=== PATIENT | female | born 2000 | race Caucasian/White ===

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

== ENCOUNTER 2021-06-01 16:17 | Emergency (ER) | payer OTHER, SELFPAY ==
[2021-06-01 16:27] VITALS: BP 148/95; PULSE 100; RESP 18; TEMP 36.7; O2SAT 100
--- NOTE | 2021-06-01 16:31 | ED.FEMALEGU ---
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 Stated complaint: Yeast Infection Time Seen by Provider: 06/01/21 16:31 Source: patient, RN notes reviewed and old records reviewed Mode of arrival: ambulatory Limitations: no limitations History of Present Illness HPI Narrative: 21-year-old female presents to the [facility] Related Data Allergies Allergy/AdvReac Type Severity Reaction Status Date / Time No Known Allergies Allergy Unknown Verified 06/01/21 16:21 Review of Systems Review of Systems: All systems reviewed & are unremarkable except as noted in HPI and below Constitutional: Constitutional: Reports no additional constitutional complaints, Denies chills and Denies fatigue Eyes: Eyes: Reports no additional eye complaints ENT: Reports system reviewed and no additional complaints, except as documented Cardiovascular: Cardiovascular: Reports no additional cardiovascular complaints Respiratory: Respiratory: Reports no additional respiratory complaints Gastrointestinal: Gastrointestinal: Reports no additional gastrointestinal complaints, Denies abdominal pain, Denies diarrhea, Denies nausea and Denies vomiting Genitourinary: Genitourinary: Reports as per HPI, Reports hematuria, Reports nocturia, Reports dysuria, Denies flank pain and Denies vaginal discharge Musculoskeletal: Musculoskeletal: Reports no additional musculoskeletal complaints and Denies back pain Integumentary/Breasts: Skin/Breast: Reports system reviewed and no additional complaints, except as docu Neurologic: Reports system reviewed and no additional complaints, except as documented Psychiatric: Psychiatric: Reports no additional psychiatric complaints Endocrine: Endocrine: Denies fatigue Allergic/Immunologic: Allergic/Immunologic: Reports no additional allergic/immunologic complaints [facility] Past Medical History Medical History (Updated 06/01/21 @ 16:51 by Brenda Trotter) Esophagitis on biopsy Surgical History Surgical History (Updated 10/05/20 @ 18:08 by SINCERE Garay) No significant past surgical history Family History Family History (Updated 10/05/20 @ 18:06 by SINCERE Garay) Father COPD (chronic obstructive pulmonary disease) Mother Hypertension Social History Social History (Updated 10/05/20 @ 18:25 by SINCERE Garay) Years smoked: 5 Smoking status: Current every day smoker Tobacco type: cigarettes Second hand tobacco smoke exposure: Yes Alcohol intake: never Substance use: current Substance use type: marijuana Gender identity (if verbalized by the patient): Female Comments At the time of my signature, I reviewed and agree with the nursing past medical, surgical, social, and family history. There is no relevant family history pertinent to the patient complaint. Exam Const: General: healthy appearing, no acute distress and alert Nutritional Appearance: well nourished Orientation/consciousness: patient oriented x3 Limitations: no limitations HENMT: Head: normal to inspection Ears: external ears normal Eyes: Conjunctivae: conjunctivae normal Pupils: Equal, round and reactive pupils present Neck: Neck: normal visual inspection, no lymphadenopathy and no meningeal signs Chest: Chest palpation & inspection: normal inspection of the chest and abnormal inspection of the chest Resp: Effort & Inspection: normal respiratory effort Auscultation: clear to auscultation bilaterally Cardio: Rate: regular rate Rhythm: regular rhythm GI: GI Palp: Yes Soft to palpation and No Tenderness to palpation present (GI) : External Female Exam: normal external appearance Speculum Exam - Vagina: normal appearance of the vagina, abnormal vaginal discharge white and malodorous, vagina not atrophic and not erythematous Speculum Exam - Cervix: normal appearance of the cervix, Cervical os closed, no lesions and nontender Other: Chaperoned by Viviana BARRERA Back/Spine/Pelvis: Back:
== END 2021-06-01 16:55 | disposition home or self-care (01) ==
PROVIDERS: Emergency Provider Nurse Practitioner
DX: N76.0 Acute vaginitis (principal); F17.210 Nicotine dependence, cigarettes, uncomplicated
CPT/HCPCS: 81003; 81025; 87491; 87591; 87661; 99213; G0463

== ENCOUNTER 2021-08-07 10:13 | Emergency (ER) | payer OTHER, SELFPAY ==
[2021-08-07 10:19] VITALS: BP 122/78; PULSE 87; RESP 16; TEMP 37.1; O2SAT 100
--- NOTE | 2021-08-07 10:25 | ED.URI ---
HPI - URI/Sore Throat General Chief Complaint: Upper Respiratory Infection Stated Complaint: sore throat Time Seen by Provider: 08/07/21 10:25 Source: patient Mode of arrival: ambulatory Limitations: no limitations History of Present Illness HPI Narrative: Ms. Duckworth is a 21-year-old female patient presenting to the clinic today with complaints of sore throat, cough, nasal congestion, and sinus pressure x1 week. She reports that the sinus congestion is improving however she still has a sore throat that is gradually eating worse. Has pain with swallowing. She denies any fever or chills. She denies any known exposure with anyone having Covid, flu, or strep. Reports that she gets strep very easily and usually gets it every year. MD elicited complaint: cough, sore throat, rhinorrhea, nasal congestion and sinus pain Related Data Home Medications Medication Instructions Recorded Confirmed cetirizine 10 mg DIRECTED 08/07/21 08/07/21 pantoprazole 20 mg PO DIRECTED 08/07/21 08/07/21 Allergies Allergy/AdvReac Type Severity Reaction Status Date / Time No Known Allergies Allergy Unknown Verified 06/01/21 16:21 Review of Systems Review of Systems: Pertinent positives per HPI. Patient denies any fever, chills, rash, headache, visual changes, dizziness, shortness of breath, chest pain, palpitations, nausea, vomiting, diarrhea, constipation, abdominal pain, or any urinary issues. [facility] Past Medical History Medical History Esophagitis on biopsy Surgical History Surgical History No significant past surgical history Family History Family History Father COPD (chronic obstructive pulmonary disease) Mother Hypertension Social History Social History Years smoked: 5 Smoking status: Current every day smoker Tobacco type: cigarettes Second hand tobacco smoke exposure: Yes Alcohol intake: never Substance use: current Substance use type: marijuana Gender identity (if verbalized by the patient): Female Comments At the time of my signature, I reviewed and agree with the nursing past medical, surgical, social, and family history. There is no relevant family history pertinent to the patient complaint. Exam Narrative: General: Well-developed, well nourished, in no apparent distress Head: Normocephalic, atraumatic Eyes: Pupils equally round and reactive to light bilaterally, EOM intact, sclera and conjunctive clear, no discharge, lids normal Ears: TMs intact and clear, ear canals clear, no drainage, grossly hearing normal. Nose: Nares patent, clear nasal discharge, moderate inflammation, no sinus tenderness. Mouth: Oral pharynx without lesions or masses, good dentition, MMM. Oropharynx red with tonsillar swelling 2+ Neck: Supple, trachea midline, positive enlargement of anterior cervical nodes, no thyroid masses or goiter palpable. Cardio: Regular rate and rhythm, s1 and s2 normal, no murmur appreciated. Resp: Faint wheeze to the left upper posterior lobe otherwise clear to auscultation bilaterally, no rhonchi, rales, or rubs Course Course Emergency Course: Portions of this record may have been created with voice recognition software. Level of Care: Express Care Visit Vital Signs Vital signs: Vital Signs Temperature 37.1 C 08/07/21 10:19 Pulse Rate 87 08/07/21 10:19 Respiratory Rate 16 08/07/21 10:19 Blood Pressure 122/78 08/07/21 10:19 Pulse Oximetry 100 08/07/21 10:19 Temperature 37.1 C 08/07/21 10:19 Pulse Rate 87 08/07/21 10:19 Respiratory Rate 16 08/07/21 10:19 Blood Pressure 122/78 08/07/21 10:19 Pulse Oximetry 100 08/07/21 10:19 Vital signs reviewed MDM - URI/Sore Throat MDM Narrative Medical decision ralph
== END 2021-08-07 10:49 | disposition home or self-care (01) ==
PROVIDERS: Emergency Provider Nurse Practitioner Family
DX: J02.0 Streptococcal pharyngitis (principal); F17.210 Nicotine dependence, cigarettes, uncomplicated
CPT/HCPCS: 87880; 99213; G0463

== ENCOUNTER 2021-10-10 01:16 | Emergency (ER) | payer OTHER, SELFPAY ==
[2021-10-10 01:18] VITALS: BP 122/77; PULSE 75; RESP 16; TEMP 36.8; O2SAT 100
--- NOTE | 2021-10-10 01:40 | ED.DENTAL ---
HPI - Dental/Oral General Chief complaint: Dental/Oral Stated complaint: dental pain Time Seen by Provider: 10/10/21 01:23 Source: patient Mode of arrival: ambulatory Limitations: no limitations History of Present Illness HPI Narrative: 21-year-old otherwise healthy presently here with complaints of dental pain for past few hours. She denies any fever or chills. Complaint: tooth pain Location: Tooth # (16) Onset (ago): hour(s) (3) Exacerbating factors: nothing Treatment prior to arrival: none Related Data Home Medications Medication Instructions Recorded Confirmed cetirizine 10 mg tablet 10 mg DIRECTED 08/07/21 08/07/21 pantoprazole 20 mg tablet,delayed 20 mg PO DIRECTED 08/07/21 08/07/21 release Allergies Allergy/AdvReac Type Severity Reaction Status Date / Time No Known Allergies Allergy Unknown Verified 06/01/21 16:21 Review of Systems Review of Systems: All systems reviewed & are unremarkable except as noted in HPI and below Constitutional: Constitutional: Reports no additional constitutional complaints Eyes: Eyes: Reports no additional eye complaints ENT: Reports as per HPI Cardiovascular: Cardiovascular: Reports as per HPI Respiratory: Respiratory: Reports no additional respiratory complaints Gastrointestinal: Gastrointestinal: Reports no additional gastrointestinal complaints Musculoskeletal: Musculoskeletal: Reports no additional musculoskeletal complaints [facility] Past Medical History Medical History Esophagitis on biopsy Surgical History Surgical History No significant past surgical history Family History Family History Father COPD (chronic obstructive pulmonary disease) Mother Hypertension Social History Social History Years smoked: 5 Smoking status: Current every day smoker Tobacco type: cigarettes Second hand tobacco smoke exposure: Yes Alcohol intake: never Substance use: current Substance use type: marijuana Gender identity (if verbalized by the patient): Female Exam Narrative: GENERAL: Well-appearing, well-nourished, and in no acute distress. HEAD: Normocephalic, atraumatic. EYES: PERRLA and EOMI. ENT: Dental pain #16 NECK: Supple. CHEST: Clear to auscultation. No respiratory distress. HEART: Regular rate and rhythm. No murmur heard. Normal peripheral pulses. EXTREMITIES: Normal range of motion. No edema. SKIN: Warm, dry, no rash. NEURO: No focal deficits. Alert and oriented x3. PSYCH: Normal mood and affect. Course Course Emergency Course: Advised her to take antibiotic as prescribed, Tylenol for pain. Vital Signs Vital signs: Vital Signs Temperature 36.8 C 10/10/21 01:18 Pulse Rate 75 10/10/21 01:18 Respiratory Rate 16 10/10/21 01:18 Blood Pressure 122/77 10/10/21 01:18 Pulse Oximetry 100 10/10/21 01:18 Oxygen Delivery Room Air 10/10/21 01:18 Temperature 36.8 C 10/10/21 01:18 Pulse Rate 75 10/10/21 01:18 Respiratory Rate 16 10/10/21 01:18 Blood Pressure 122/77 10/10/21 01:18 Pulse Oximetry 100 10/10/21 01:18 Oxygen Delivery Room Air 10/10/21 01:18 Discharge Plan Discharge Clinical Impression: Toothache Patient Disposition: Home, Self-Care Condition: Stable Instructions: Antibiotic Form, Toothache (ED) Prescriptions: New amoxicillin 875 mg tablet 875 mg PO Q12H Qty: 20 0RF No Action cetirizine 10 mg tablet 10 mg DIRECTED pantoprazole 20 mg tablet,delayed release (DR/EC) 20 mg PO DIRECTED amoxicillin 500 mg capsule 500 mg PO Q12H 10 Days Qty: 20 0RF Follow-up/Referrals: PHYSICIAN,ADVERTISING SPACE CLERK [Primary Care Provider] - Uri Rodney MD [Physician] - Time of Disposition: 01:42
== END 2021-10-10 01:53 | disposition home or self-care (01) ==
PROVIDERS: Emergency Provider Family Medicine
DX: K08.89 Other specified disorders of teeth and supporting structures (principal); F17.210 Nicotine dependence, cigarettes, uncomplicated
CPT/HCPCS: 99283

== ENCOUNTER 2022-02-13 12:54 | Emergency (ER) | payer OTHER, SELFPAY ==
[2022-02-13 13:22] VITALS: BP 114/60; PULSE 98; RESP 18; TEMP 37.4; O2SAT 100
--- NOTE | 2022-02-13 14:03 | ED.URI ---
HPI - URI/Sore Throat General Chief Complaint: Upper Respiratory Infection Stated Complaint: Sore Throat,Cough Time Seen by Provider: 02/13/22 14:03 Source: patient and RN notes reviewed Mode of arrival: ambulatory Limitations: no limitations History of Present Illness HPI Narrative: 21-year-old female presents to the [facility] with complaints of a body aches, sore throat and cough since last night Reports that over the weekend she was exposed to influenza. Dr. Hampton is her PRIVACY DIRECTOR OB. States she is almost 6 months . Has taken Tylenol but states she does not know what else she can take. Related Data Home Medications Medication Instructions Recorded Confirmed No Home Medications 02/13/22 02/13/22 Allergies Allergy/AdvReac Type Severity Reaction Status Date / Time No Known Allergies Allergy Unknown Verified 02/13/22 13:37 Review of Systems Review of Systems: All systems reviewed & are unremarkable except as noted in HPI and below Constitutional: Constitutional: Reports as per HPI, Denies chills, Reports fatigue and Denies fever(s) Eyes: Eyes: Reports no additional eye complaints ENT: Reports sore throat Cardiovascular: Cardiovascular: Reports no additional cardiovascular complaints Respiratory: Respiratory: Reports no additional respiratory complaints Gastrointestinal: Gastrointestinal: Reports no additional gastrointestinal complaints Musculoskeletal: Musculoskeletal: Reports no additional musculoskeletal complaints Integumentary/Breasts: Skin/Breast: Reports system reviewed and no additional complaints, except as docu Neurologic: Reports system reviewed and no additional complaints, except as documented Psychiatric: Psychiatric: Reports no additional psychiatric complaints Allergic/Immunologic: Allergic/Immunologic: Reports no additional allergic/immunologic complaints PMFSH Past Medical History Medical History Esophagitis on biopsy Surgical History Surgical History No significant past surgical history Family History Family History Father COPD (chronic obstructive pulmonary disease) Mother Hypertension Social History Social History Years smoked: 5 Smoking status: Current every day smoker Tobacco type: cigarettes Second hand tobacco smoke exposure: Yes Alcohol intake: never Substance use: current Substance use type: marijuana Gender identity (if verbalized by the patient): Female Comments At the time of my signature, I reviewed and agree with the nursing past medical, surgical, social, and family history. There is no relevant family history pertinent to the patient complaint. Exam Const: General: healthy appearing, no acute distress, alert and well nourished Nutritional Appearance: well nourished Orientation/consciousness: patient oriented x3 Limitations: no limitations HENMT: Head: normal to inspection Ears: external ears normal, TM's normal bilaterally and EAC's normal Face/Nose/Sinus: Normal external nose present and Normal nares present Face and sinus: normal facial exam Mouth: Yes Normal oral and palatal mucosa present, Yes lip normal and Yes moist mucous membranes Throat: posterior oropharynx normal and uvula midline Eyes: General: appearance normal, both eyes and all related structures Conjunctivae: conjunctivae normal Pupils: Equal, round and reactive pupils present Neck: Neck: normal visual inspection, no lymphadenopathy and no meningeal signs Chest: Chest palpation & inspection: normal inspection of the chest Resp: Effort & Inspection: normal respiratory effort and no use of accessory muscles Auscultation: clear to auscultation bilaterally, no crackles, no rales, no rhonchi and no wheezes Cardio: Rate: regular rate Rhythm: regular
== END 2022-02-13 14:41 | disposition home or self-care (01) ==
PROVIDERS: Emergency Provider Nurse Practitioner; PCP Obstetrics & Gynecology
DX: O99.512 Diseases of the respiratory system complicating pregnancy, second trimester (principal); Z3A.00 Weeks of gestation of pregnancy not specified; J06.9 Acute upper respiratory infection, unspecified; F17.210 Nicotine dependence, cigarettes, uncomplicated; O99.332 Smoking (tobacco) complicating pregnancy, second trimester
CPT/HCPCS: 87081; 87804; 87880; 99213; G0463

== ENCOUNTER 2022-05-08 11:35 | Outpatient (RCR) | payer OTHER, SELFPAY ==
[2022-05-02 17:27] VITALS: BP 117/62; PULSE 80
--- NOTE | ~2022-05-08 | US_ITS ---
EXAMINATION: US OB BPP wo non-stress, US umbilical doppler DATE: 05/02/2022 16:53 [employer] INDICATION: Low baseline heart rate. TECHNIQUE: Real-time transabdominal obstetric ultrasound. FINDINGS: No prior studies for comparison. There is a single living fetus in vertex presentation. The placenta is posterior without placenta pr evia. cardiac activity and movement is noted with a heart rate of 120 beats per minute. Biophysical profile: breathin of 2 movement: 2 of 2 tone: 2 of 2 Amniotic flud pocket: 2 of 2 Total score: 8 of 8 Umbilical Doppler termination demonstrates normal systolic/diastolic ratio of 2.3 (normal range for g estational age is 2.03-3.40). IMPRESSION: 1. Single living intrauterine in vertex presentation. 2: Total biophysical profile score of 8/8. 3: Normal umbilical Doppler examination. Reviewed, dictated and finalized at location A. RESUR[employer]ING MACHINE OPERATORS IMPRESSION: 1. Single living intrauterine in vertex presentation. 2: Total biophysical profile score of 8/8. 3: Normal umbilical Doppler examination.
--- NOTE | ~2022-05-08 | US_ITS ---
. EXAMINATION: US OB limited w BPP DATE: 05/08/2022 13:19 INDICATION: Decelerations. Third trimester. TECHNIQUE: Real-time pelvic ultrasound was performed. COMPARISON: Ultrasound 05/02/2022 FINDINGS: There is a single living fetus in vertex presentation. The placenta is fundal. heart rate is 1 36 beats per minute (bpm). The amniotic fluid index is 12.4 cm, which is normal. Biophysical profile performed by the technologist: breathing (30 sec sustained breathing in 30 minutes): 2 out of 2 movement (3 gross body movements in 30 minutes): 2 out of 2 tone (one episode of bzfnwim-[id number]-vwungai limb movement): 2 out of 2 Amniotic fluid pocket (2 cm): 2 out of 2 Total score: 8 out of 8 IMPRESSION: 1. Single living fetus in vertex presentation. 2. Biophysical profile 8 out of 8. Reviewed, dictated and finalized at location A. CISE INSTRUCTOR
[2022-05-08 13:42] VITALS: BP 120/57; PULSE 77
== END 2022-05-24 07:39 | disposition home or self-care (01) ==
LOC: ANHOBOP 11:35
PROVIDERS: Visit Provider Obstetrics & Gynecology
DX: O36.8330 Maternal care for abnormalities of the fetal heart rate or rhythm, third trimester, not applicable or unspecified (principal); Z3A.34 34 weeks gestation of pregnancy; Z3A.35 35 weeks gestation of pregnancy
CPT/HCPCS: 59025; 76815; 76819; 76820

== ENCOUNTER 2022-05-15 11:43 | Inpatient (IN) | payer OTHER, SELFPAY ==
[2022-05-15] VITALS (121 sets, daily range): BP systolic 108–188; BP diastolic 57–154; PULSE 45–137; RESP 16–18; TEMP 36.6–37.1; O2SAT 82–100; BMI 22.6
[2022-05-15] MEDS: LACTATED RINGERS 1,000 ML 999 ML IV CONT (13:22)
--- NOTE | 2022-05-15 13:26 | LDADM ---
This patient, Ragini Duckworth, was admitted to Labor/Delivery/Recovery 105 on 05/15/22 at 11:43. Plans for labor, pain management and were discussed with patient. Patient/family oriented to hospital policies and general routines including ID bracelet, bed and alarms, visiting hours, pain management, procedures, bathroom and other care routines, personal items, smoking policy, room service/diet and guest tray routines, security routines, and visiting hours. Patient/Family are encouraged to report perceived risks to care and to ask questions if they do not understand what they are told or what they should do. See [facility] for further documentation.
[2022-05-15] MEDS: LACTATED RINGERS 1,000 ML 100 ML IV CONT (14:04)
--- NOTE | 2022-05-15 14:31 | PM.IMHP ---
H&P: [facility] History of Present Illness Date/Time: 05/15/22 14:31 Chief Complaint: Contractions Narrative: this patient is a 22-year-old 1 at 36 weeks. She has a uncommon placental abnormality with a hematoma or fluid collection on the side of the placenta. She has some nonreassuring heart tones today with numerous repetitive heart rate decelerations that appeared to be Variable decelerations. After speaking with MFM we have elected to move forward with delivery. Patient presented with contractions, no loss of fluid or vaginal bleeding. We performed artificial rupture membranes after period of observation. Will administer Pitocin to get her into labor. heart tones were overall reassuring. Review of Systems Review of Systems: All systems reviewed & are unremarkable except as noted in HPI and below Constitutional: Constitutional: Denies chills, Denies fatigue, Denies fever(s) and Denies weakness Eyes: Eyes: Denies blurry vision, Denies change in vision, Denies loss of peripheral vision, Denies loss of vision, Denies other visual disturbances and Denies eye pain ENT: Denies vertigo, Denies dizziness, Denies hearing loss, Denies mouth pain, Denies nasal obstruction, Denies neck mass and Denies neck pain Cardiovascular: Cardiovascular: Denies chest pain, Denies diaphoresis, Denies syncope, Denies leg edema and Denies dyspnea Respiratory: Respiratory: Denies chest congestion, Denies cough, Denies hemoptysis, Denies dyspnea and Denies wheezing Gastrointestinal: Gastrointestinal: Denies abdominal pain, Denies constipation, Denies diarrhea, Denies nausea and Denies vomiting Genitourinary: Genitourinary: Denies hematuria, Denies change in libido, Denies nocturia, Denies genital lesions, Denies flank pain and Denies urinary urgency Musculoskeletal: Musculoskeletal: Denies abnormal gait, Denies back pain, Denies myalgias, Denies arthralgias, Denies joint swelling, Denies muscle weakness and Denies neck pain Integumentary/Breasts: Skin/Breast: Denies swelling, Denies breast pain, Denies breast mass, Denies dry skin, Denies nipple discharge, Denies unusual bruising and Denies jaundice Neurologic: Denies Neuro-related abnormal movements, Denies Abnormal speech present, Denies abnormal gait, Denies behavioral changes, Denies confusion, Denies vertigo, Denies dizziness, Denies syncope, Denies loss of vision, Denies memory loss, Denies convulsions and Denies weakness Psychiatric: Psychiatric: Denies abnormal sleep pattern, Denies behavioral changes, Denies change in libido, Denies confusion, Denies depression, Denies anhedonia and Denies memory loss Endocrine: Endocrine: Reports no additional endocrine complaints, Denies change in libido and Denies fatigue Hematologic/Lymphatic: Hematologic/Lymphatic: Reports no additional hematologic/lymphatic complaints Allergic/Immunologic: Allergic/Immunologic: Reports no additional allergic/immunologic complaints and Denies wheezing PMFSH Past Medical History Medical History Esophagitis on biopsy Surgical History Surgical History No significant past surgical history Family History Family History (Updated 05/12/22 @ 12:40 by Bentley Webb RN) Father COPD (chronic obstructive pulmonary disease) Mother Hypertension Grandparent COPD (chronic obstructive pulmonary disease) Social History Social History Years smoked: 5 Smoking status: Current every day smoker Tobacco type: cigarettes Second hand tobacco smoke exposure: Yes Alcohol intake: never Substance use: current Substance use type: marijuana Last use: last month--04/17 Gender identity (if verbalized by the patient): Female Spiritual care concerns: No Meds Home Medications and Allergies Home Medications Medication Instru
[2022-05-15] MEDS: AMPICILLIN 2 GM/NS 100 ML 2 GM/100 ML BAG IVPB (14:40)
[2022-05-15 14:47] LABS: Basophils Absolute Auto 0.1 K/mm3 (0.0-0.1); Basophils Percent Auto 0.7 % (0.2-1.2); Eosinophils Absolute Auto 0.2 K/mm3 (0-0.3); Eosinophils Percent Auto 2.9 % (0-4.4); Hematocrit 35.6 % (37.0-47.0); Hemoglobin 11.8 g/dL (12.0-15.0); Immature Granulocyte Absolute 0.03 K/mm3 (0.00-0.031); Immature Granulocyte Percent A 0.4 % (0-0.5); Lymphocytes Absolute Auto 1.43 K/mm3 (0.9-3.2); Lymphocytes Percent Auto 19.1 % (18.3-44.2); Mean Corpuscular HGB Conc 33.1 g/dl (32-36); Mean Corpuscular Hemoglobin 27.3 pg (26-34); Mean Corpuscular Volume 82.4 fl (80-100); Mean Platelet Volume 11.8 fl (7.4-10.4); Monocytes Absolute Auto 0.6 K/mm3 (0.1-0.6); Monocytes Percent Auto 8.5 % (2.6-8.5); Neutrophils Absolute Auto 5.1 K/mm3 (1.3-6.7); Neutrophils Percent Auto 68.4 % (45.5-73.1); Platelet Count Result 221 k/mm3 (150-375); Red Blood Count 4.32 M/mm3 (4.2-5.4); Red Cell Distribution Width 13.3 % (11.5-14.5); White Blood Count 7.5 K/mm3 (4.5-10.0)
[2022-05-15] MEDS: OXYTOCIN 30 UNITS/NS 500 ML 30 UNITS/500 ML BAG IV CONT (15:47)
[2022-05-15] MEDS: AMPICILLIN 1 GM/NS 50 ML 1 GM/50 ML BAG IVPB ×2 (18:30→22:36)
[2022-05-15] MEDS: LACTATED RINGERS 1,000 ML 125 ML IV CONT (18:30)
--- NOTE | 2022-05-15 23:54 | PM.OBPRVD ---
OB - Delivery Note Procedure Procedure: Induction method: AROM and Per Pitocin Protocol Delivery monitor: External FHT and External Uterine Route of delivery: Episiotomy description: None Laceration Description: None Specimen: No Quantitative Blood Loss (ml): 250 Anesthesia type: Epidural Baby Date of : 05/15/22 Time of : 23:39 Weeks of gestation at delivery: 36 Infant gender: Female Weight (pounds): 5 Weight (ounces): 6 presentation: vertex Placenta delivery description: Spontaneous Cord Vessel Description: 3 Vessels score one minute: 8 score five minutes: 9
[2022-05-16] VITALS (38 sets, daily range): BP systolic 109–152; BP diastolic 61–141; PULSE 77–112; RESP 16–18; TEMP 36.6–37.3; O2SAT 97–100
[2022-05-16] MEDS: OXYTOCIN 30 UNITS/NS 500 ML 30 UNITS/500 ML BAG 125 UNITS IV CONT (00:22)
[2022-05-16] MEDS: BENZOCAINE 20% AER SPR (*SP) 56 GM CAN 1 SPRAY TOPICAL (01:39)
[2022-05-16] MEDS: WITCH HAZEL 40 PADS 1 PAD TOPICAL (01:39)
--- NOTE | 2022-05-16 02:18 | PC.NURSE ---
Patient transferred to post room # 279 via (W/C). Support person present. Oriented to unit, room, information board, rooming in, admission packet and security measures. Patient verbalizes understanding.
[2022-05-16 05:40] LABS: Hematocrit 29.4 % (37.0-47.0); Hemoglobin 9.8 g/dL (12.0-15.0)
--- NOTE | 2022-05-16 07:54 | PM.OBPNVD ---
OB - PN: Subj Subjective Date/time seen: 05/16/22 07:54 s/p vaginal delivery day 1 OB - PN: Obj Data Labs 05/16/22 05:27 Labs: Laboratory Results - last 24 hr 05/15/22 05/15/22 05/16/22 14:43 14:43 05:27 WBC 7.5 RBC 4.32 Hgb 11.8 L 9.8 L Hct 35.6 L 29.4 L MCV 82.4 MCH 27.3 MCHC 33.1 RDW 13.3 Plt Count 221 MPV 11.8 H Immature Gran % (Auto) 0.4 Neut % (Auto) 68.4 Lymph % (Auto) 19.1 [place] % (Auto) 8.5 Eos % (Auto) 2.9 Baso % (Auto) 0.7 Lymph # (Auto) 1.43 [place] # (Auto) 0.6 Eos # (Auto) 0.2 Baso # (Auto) 0.1 Abs Immat Gran (auto) 0.03 Absolute Neuts (auto) 5.1 Absolute Nucleated RBC 0.0 Nucleated RBC % 0.0 Blood Type A Positive Antibody Screen Negative OB - PN A/P Plan day: 1 Plan: routine care Time Spent With Patient Time: Total time spent is greater than 50% in coordination of care (as documented) at patient's floor/unit and/or counseling patient: Review of Systems Review of Systems: All systems reviewed & are unremarkable except as noted in HPI and below Exam Const: General: cooperative, healthy appearing and comfortable
[2022-05-16] MEDS: POLYSACCHARIDE IRON COMPLEX 150 MG CAPSULE PO ×2 (07:57→16:55)
[2022-05-16] MEDS: DOCUSATE SODIUM 100 MG CAPSULE PO (07:57)
[2022-05-16] MEDS: FLUCONAZOLE 150 MG TABLET PO (10:39)
--- NOTE | 2022-05-16 14:12 | PC.NURSE ---
[id number] Introductions were made, then consulted with patient to assess needs related to . Mother led the conversation with her?plans to feed?her infant and the?experience so far. Resources provided for inpatient and outpatient services with the mom/baby guide. Mother voiced understanding of information and requests assistance. Mother works well with her with encouragement and education. Encouraged understanding of the benefits of skin to skin (demonstrating unwrapping and placing upright on her chest), stimulating with massage touch, changing positions to encourage wakefulness, how to watch for early feeding cues, responsive feeding, feeding on demand (aiming for 8-12 times in 24 hours, about every 2-3 hours), milk production, building/maintaining a milk supply, duration of feeding, signs of adequate intake/output and how to record on the feeding sheet. Mother voiced she would call when she visualized feeding cues, after the blood sugar check or if she is unable to wake her infant to breastfeed. is sleepy and reluctant skin to skin with mother after stimulating there are no feeding cues. [id number] Reviewed positioning and ear, shoulder, hip alignment, supporting the breast to facilitate a deep latch, asymmetrical latch (off-center), leading with the chin with a big, open, wide gape and body close to mother. Infant is sleepy and reluctant. Discussed the latch pre-term infant and typical behavior for EGA and less than 24 hours old. Mother is receptive to learning hand expression. 15mls hand expressed from mothers breast and spoon fed to due to not opening and latching. Reviewed feeding option related to late infant not latching with some low blood sugars. has been bottle fed previously related to the low blood sugar and mother would like to pump to stimulate her milk production and feed what she pumps to her baby. 1052 - Dr. Mahajan was notified of the 15mls of breastmilk spoon fed to and is okay with mother supplementing whether it is breastmilk or formula 15mls-20mls 1105 - Breast pump provided due to ineffective (baby does not latching to the breast) and mother's request. Instructions given on cleaning, care, usage, that there should be no pain, pumping schedule for milk production, collection, and storage of human milk. Parents are encouraged to record pumping schedule on the feeding sheet. Patient was assessed for correct placement, flange size, to pump for comfort and nipple stretching/stimulation for adequate milk production every 3 hours (8 times in 24 hours) 1-2 times at night. Mother voiced understanding of the education shared along with mom and baby guide for additional resource information. Reported to the primary RN. 1145 Mother pumped 5mls and said she fell asleep pumping and did not complete the pumping cycle and did not want to hand express or start another pumping session. Mother desires to nap. 5mls of breastmilk and 10mls of formula was fed to the and mother states she will wash the pump parts before she takes a nap. Reviewed good handwashing when or touching the breast/nipples to prevent infection. Resources used to facilitate learning were used with the tool, mom and baby guide. Mother voiced understanding of skin to skin, stimulating with massage touch, responsive feedings, hand expressed colostrum, talking to to encourage if it has been 2 -2.5 hours since the start of the last , to call if does not latch, or if there is discomfort with . Resources provided for inpatient/outpatient with business card, feeding sheet and the mom/baby guide. Mother voiced understanding of information and will call if there is a request for assistance. Reported to the primary RN.
[2022-05-16 14:20] LABS: Rapid Plasma Reagin Non-Reactive (NonReactive)
--- NOTE | 2022-05-16 16:05 | PC.NURSE ---
Liam Rush RN, has checked over and agrees with the charting that Mirta Batista, Student RN, has completed.
[2022-05-17] VITALS: BP 115/68; PULSE 84; RESP 18; TEMP 36.8; O2SAT 99
[2022-05-17 07:40] VITALS: BP 107/72; PULSE 72; RESP 18; TEMP 36.6; O2SAT 98
[2022-05-17] MEDS: DOCUSATE SODIUM 100 MG CAPSULE PO (07:44)
[2022-05-17] MEDS: POLYSACCHARIDE IRON COMPLEX 150 MG CAPSULE PO (07:44)
--- NOTE | 2022-05-17 09:42 | PM.OBPNVD ---
OB - PN: Subj Subjective Date/time seen: 05/17/22 09:43 s/p vaginal delivery day 2 OB - PN: Obj Data Labs 05/16/22 05:27 Labs: Laboratory Results - last 24 hr 05/15/22 14:43 RPR Non-reactive OB - PN A/P Plan day: 2 Plan: routine care and discharge home Time Spent With Patient Time: Total time spent is greater than 50% in coordination of care (as documented) at patient's floor/unit and/or counseling patient: Review of Systems Review of Systems: All systems reviewed & are unremarkable except as noted in HPI and below Exam Const: General: cooperative, healthy appearing and comfortable
--- NOTE | 2022-05-17 09:44 | PM.OBDSVD ---
DS: Admitting Diagnosis Discharge Date 05/17/22 Admitting Diagnosis IOL DS: Discharge Diagnosis Discharge Diagnosis (1) Vaginal delivery: Code(s): O80 - Encounter for full-term uncomplicated delivery Status: Acute OB - DS: Summary OB Procedures : None OB Procedures Intrapartum: Spontaneous Vag Delivery OB Procedures: : None Time Spent with Patient Time attestation: Total time spent providing and/or coordinating discharge services: DS: Data Data Completed and Pending Labs on day of discharge: Labs from last 24 hours 05/15/22 14:43 RPR Non-reactive Discharge Plan Discharge Attending physician on discharge: Adeola Hampton Discharging Clinician: Josephine Lopez Patient Disposition: Home, Self-Care Activity: pelvic rest Diet: regular Patient Instructions: Antibiotic Form Stand Alone Forms: General Discharge Information Follow-up/Referrals: Adeola Hampton MD [Physician] - 4 Weeks Discharge Medications: New ibuprofen 600 mg Tablet 600 mg PO Q6H PRN (Reason: Cramping) Qty: 30 0RF Continued albuterol sulfate 90 mcg/actuation Hfa Aerosol Inhaler 2 puff INHALATION Q4H PRN (Reason: Shortness Of Breath) PNV cmb#95-ferrous fumarate-FA [] 28 mg iron- 800 mcg Tablet 1 tablet PO DAILY Discontinued metronidazole 0.75 % (37.5mg/5 gram) gel 1 appful VAGINAL DAILY Date of admission: 05/15/22 11:43 Primary Care Provider: PHYSICIAN,RAIL SIGNAL WORKER Admitting Provider: Adeola Hampton Attending physician on admission: Adeola Hampton Condition: Stable
[2022-05-17] MEDS: MEASLES,MUMPS,RUBELLA VACCINE 0.5 ML VIAL SUB-Q (10:24)
[2022-05-19 11:40] VITALS: BP 114/75; PULSE 98; RESP 18; TEMP 37.1; O2SAT 100
== END 2022-05-17 14:00 | disposition home or self-care (01) | DRG 560 ==
LOC: ANHLDR 16:13 → ANHOB2 05-16 02:19
PROVIDERS: Admitting Provider Obstetrics & Gynecology; Visit Provider Obstetrics & Gynecology
DX: O36.8330 Maternal care for abnormalities of the fetal heart rate or rhythm, third trimester, not applicable or unspecified (principal); O99.824 Streptococcus B carrier state complicating childbirth; Z37.0 Single live birth; Z3A.36 36 weeks gestation of pregnancy; O43.893 Other placental disorders, third trimester
CPT/HCPCS: 36415; 85014; 85018; 85025; 86592; 86850; 86900; 86901; 90710; A9270; J0290; J2590; J2795; J7120

== ENCOUNTER 2023-08-26 10:45 | Outpatient (RCR) | payer OTHER, SELFPAY ==
--- NOTE | 2023-08-19 11:00 | OPREHPOC ---
Outpatient Therapy Plan of Care This is a Multidisciplinary Plan of Care that may contain components documented by all disciplines (PT, OT, and ST.) PT Problem 1 PT Problem #1 Knowledge Deficit PT Goal 1 Goal 1. Patient will perform independent HEP Target Visit 2 PT Problem 2 PT Problem #2 Pain PT Goal 1 Goal 1. Pt will report no pelvic pain on exam 2. Pt will be able to do all normal activities with pain no higher than 2/10 Target Visit 5 PT Problem 3 PT Problem #3 Impaired Strength PT Goal 1 Goal 1. Improve pelvic floor strength to 4/5 to decrease incontinence Target Visit 5 PT Problem 4 PT Problem #4 Impaired Functional ADLs PT Goal 1 Goal 1. Patient able to do all normal activities with no more than 1 instance of incontinence every 2 weeks Target Visit 5
--- NOTE | 2023-08-19 11:01 | PTOPEVAL1 ---
Assessment and note entered by Acacia Dobson DPT Evaluation Information Assessment Status Evaluation Subjective Information Pt reports pelvic pain that has gotten worse since giving . Also notices pain in her lower abdomen that shoots down if she walks too much. Highest pain 8/10 and lowest 0/10. Reports numbness from her waist to her toes, feels more lateral and is normally on her R LE only. Pt has been 1 time, delivery in April 2022. Vaginal delivery, placenta rupture after delivery and reports difficulty with her epidural working well. Voids 6 times a day, 1-2 times a night but is working nights and schedule is shifting in general. Reports difficulty fully emptying her bladder and incontinence 2-3 times a week and is a few drops at a time. States she has pressure with urination. Can hold urge 10 minutes. BM at least 2 times a day, generally no pain unless constipation. Previous pelvic pain with sex before , but it is much worse now. Pain with using a tampon, getting a pap smear, sometimes sitting to drive for a long period of time. 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 Pain and difficulty driving back and forth to work , pain with lifting at work (works for [employer]). Needs to take breaks on occasion. Patient goal: minimize pain Return to MD not scheduled currently. Reported Pain Level Pain Score 3: Self Report Assessment PT Clinical Summary The patient is presenting to skilled therapy with a history of worsening pelvic pain and also reports abdominal pain and radiating symptoms into her R LE. She also reports urinary incontinence and some urgency. She presents with decreased hip and core strength, and increased pelvic floor muscle tone and pain and difficulty relaxing after contraction which are contributing to her pain and difficulty with work activities, sitting to drive, and tolerating tampon use or pap smear. She will highly benefit from therapy to address her impairments in order to reduce pain and improve function. Plan of Care Interventions Electrical Stimulation,Gait Training,Hot Pack/Cold Pack,Manual Therapy,Neuro Re-education,Patient/
--- NOTE | 2023-09-07 14:42 | PCPTNOTE ---
Patient did not show up for appointment on 09/07/23. Left voicemail for patient to reschedule.
--- NOTE | 2023-09-23 10:42 | PTOPDC ---
Assessment and note entered by Acacia Dobson, DPT Evaluation Information Assessment Status Discharge - Pt Not Present Subjective Information - Assessment PT Clinical Summary Patient has not attended therapy since 08/26/23 and has not called back to reschedule. She will be discharged this date and require a new script to resume therapy in the future. Plan of Care PT Services Indicated No
== END 2023-09-23 11:05 | disposition home or self-care (01) ==
LOC: ANHGOSHPT 10:45
PROVIDERS: Visit Provider Nurse Practitioner
DX: N94.10 Unspecified dyspareunia (principal)
CPT/HCPCS: 97110; 97112; 97140; 97162; 97530

== ENCOUNTER 2024-08-13 11:10 | Emergency (ER) | payer OTHER, SELFPAY ==
--- OUTSIDE RECORDS SUMMARY | 2024-08-13 11:13 | XMS_ITS | Clinical Summary ---
Author Organization [facility] Address [address] [place] [id number] Care Team Providers Care Ship Keeper Name Role Phone None, Provider MD Primary Care Provider Unavaila ble Allergies No known active allergies Medications cyclobenzaprine 10 MG tablet Take 0.5 tablets (5 mg total) by mouth 3 (three) times daily as needed. 16 tablet 04/05/2021 Active Social History Tobacco Use Types Packs/Day Years Used Date Smoking Tobacco: Every Day Smokeless Tobacco: Never Alcohol Use Standard Drinks/Week Comments Never 0 (1 standard drink = 0.6 oz pur e alcohol) Comments Unknown Sex and Gender Information Value Date Recorded Sex Assigned at Not on file Legal Sex Female 3:23 PM RN PROGRESSIVE CARE Gender Identity Not on file Sexual Orientation Not on file Last Filed Vital Signs Vital Sign Reading Time Taken Comments Blood Pressure 117/72 04/05/2021 3:57 PM RN PROGRESSIVE CARE Pulse 90 04/05/2021 3:57 PM RN PROGRESSIVE CARE Temperature 36.6 C (97.8 F) 04/05/2021 3:57 PM RN PROGRESSIVE CARE Respiratory Rate 18 04/05/2021 3:57 PM RN PROGRESSIVE CARE Oxygen Saturation 100% 04/05/2021 3:57 PM RN PROGRESSIVE CARE Inhaled Oxygen Concentration - - Weight 46.3 kg (102 lb) 04/05/2021 3:57 PM RN PROGRESSIVE CARE Height 157.5 cm (5' 2 ) 04/05/2021 3:57 PM RN PROGRESSIVE CARE Body Mass Index 18.66 04/05/2021 3:57 PM RN PROGRESSIVE CARE Plan of Treatment Health Maintenance Due Date Last Done Comments Cervical Cancer Screening Pap Smear (Age 21 to 29) Every 3 Years 2001 Cervical Cancer Screening 2001 Annual Physical 2004 Pneumococcal Vaccine: Pediatrics (0 to 5 Years) and At-Risk Patients (6 to 49 Years) (1 of 2 - PCV) 2007 03/07/2004, 06/28/2002, 05/03/2002, Additional history exists Meningococcal B Vaccine (1 of 2 - Standard) 2017 Hepatitis C 2019 DTaP, Tdap and Td Vaccines (7 - Td or Tdap) 12/28/2022 12/28/2012, 12/01/2006, 03/07/2004, Additional history exists COVID-19 Vaccine (1 - 2023- season) 2023 Hepatitis B Vaccines Completed 05/03/2002, 2001, 2001 Meningococcal Vaccine Aged Out 12/28/2012 No iza semaj eligible based on patient's age to complete this topic HPV Vaccines Completed 01/23/2016, 12/28/2012 RSV Immunizations Under 20 Months Aged Out No longer eligible based on patient's age to complete this topic Insurance [employer] Advance Directives Documents on File Type Date Recorded Patient Videotape Recording Engineer Expl anation Legal Documents 04/18/2021 2:33 PM [employer] [id number] DOS 04/05/2021 Care Teams Ship Keeper Relationship Specialty Start Date End Date None, Provider, PCP - General 04/05/21
--- OUTSIDE RECORDS SUMMARY | 2024-08-13 11:13 | XMS_ITS | Data Portability ---
Author Organization [facility] Address [address] [place] [address] Care Team Providers Care Brokerage Coordinator Name Role Phone ALONDRA BURDICK Primary Care Provider [phone] Assessment No assessment recorded. Plan of Treatment Reminders Order Date Submit Date Provider Last Modified By Organization Details Last Modified Time Details Appointments None record ed. Lab HIV (1+O+2 ) Ab, serum 2018 019 [employer] [facility], [address] [facility], [address], [place], [address], 9 11:42:19 RPR (rapid plasma reagin ), serum 2018 019 [facility], [address] [facility], [address], [place], [address], 9 06:16:21 pregna ncy test, urine 2018 019 leisa In-Office Order, Internal Use Only DO Not Attach Compendium DO Not Attach Compendium, Do Not Delete/merge, [id number] 9 15:09:47 urinal ysis, dipsti ck 2018 019 yaranaif In-Office Order, Internal Use Only DO Not Attach Compendium DO Not Attach Compendium, Do Not Delete/merge, [id number] 9 15:09:47 bacter ial vagino sis + vagini tis panel, vagina l 2018 019 [facility], [address] [facility] [address], [address], [place], [address], 9 15:07:21 urinal ysis comple te, reflex cultur e 2015 016 [facility], [address] [facility], [address], [place], [address], 6 06:05:51 Referral podiat rist referr al 2023 024 Bronson Verma DPM, [address] [facility], [facility] [address], [place], [address], 4 08:16:39 allerg ist & immuno logist referr al - dyspha rafael with melon and foods high in lactos e 2021 022 stefano [place], [address], [place], [address], 2 14:28:31 Procedures None record ed. Surgeries None record ed. Imaging None record ed. Medication Orders pantop razole 20 mg tablet ,delay ed releas e 2023 024 [facility] #[id number], [address] [facility], [place], [place], [id number], 4 16:22:17 cetiri zine 10 mg tablet 2023 024 [facility], [address], [place], [place], [id number], 4 15:19:57 flutic asone propio juan a 50 mcg/ac tuatio n nasal spray, suspen blayne 2023 024 [facility], [address] [facility], [place], [place], [id number], 4 15:19:56 albute rol sulfat e HFA 90 mcg/ac tuatio n aeroso l inhale r 2023 024 [facility], [address] , [place], [place], [id number], 4 16:21:39 pantop razole 20 mg tablet ,delay ed releas e 2021 022 kbarbero [facility] #07079, [address], [place], [id number], 2 16:57:25 Sprint ec (28) 0.25 mg-0.0 35 mg tablet 2018 019 nikita a [facility] #63115, [address], [place], [id number], 2 14:39:29 raniti dine 150 mg tablet 2017 018 nikita a [facility] #92417, [address], [place], [id number], 2 14:38:20 Patient Targets Encounter Date Encounter Id Patient Goals Patient Target Last Modified By Organization Details Last Modified Time pantoprazle kbarbero Not available 03/15 15:19:57 Patient Instructions Encounter Date Encounter Id Patient Instructions Last Modified By Organization Details Last Modified Time 01/23/2016 [id number] patient health questionnaire modified for adolescents* [email or web address] Not available 01/23/2016 12:06:30 tuberculosis ris k assessment* [email or web address] Not available 01/23/2016 12:06:30 9th grade and sports forms completed rquaas Not available 01/23/2016 12:05:36 Discussed diet a nd was given safety info rquaas Not available 01/23/2016 12:05:36 04/07/2018 [id number] As above rquaas Not available 04/07 17:38:20 05/20/2018 [id number] Quitting Tobacco : Care Instructions [email or web address] Not available 05/20/2018 15:09:47 painful menstrua l cramps in teens: care instructions yarauz Not available 05/20/2018 15:18:13 stop smoking Patient to start oral control today Patient to take OBC at same time every day as directed Use condoms as back for first week Risks of hormonal control reviewed, including but not limited to thrombosis, embolism, pulmonary embolism, stroke, disability, sexual dysfunction & . Patient understands these risk are increased with smoking. Patient understands that these risks may be increased when using the patch (Ortho-Evra) or the vaginal ring (Nuva-Ring) when compared to oral control pills. Risks of bone loss with Depo Provera also reviewed. All questions answered. Pt understands & accepts risks. Instructions/warni ng signs given. 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 for Gluten sensitivity dysphagia with melon and foods high in lactose Referring Physician: Alondra Burdick [facility], Encounter Date: 07/09/2021 [employer] Referral for Plan tar wart of right foot Referring Physician: Alondra Burdick [facility], Encounter Date: 03/15/2024 Results Created Date Observation Date Name Description Value Unit Range Abnormal Flag Note LastModifiedBy Organization Detail LastModifiedTime 01/23/20 16 01/24/2016 urina lysis compl ete, refle x cultu re specific gravity 1.017 1.005- 1.030 Not Available [facility] ([facility]) [address] [place], [address], 01/25/2016 06:05:51 01/23/20 16 01/24/2016 urina lysis compl ete, refle x cultu re pH 6.0 5.0-7. 5 Not Available [facility] ([facility]) [address] [place], [address], 01/25/2016 06:05:51 01/23/20 16 01/24/2016 urina lysis compl ete, refle x cultu re urine-color YELLOW yellow Not Available [facility] ([facility]) [address] [place], [address], 01/25/2016 06:05:51 01/23/20 16 01/24/2016 urina lysis compl ete, refle x cultu re appearance CLOUDY clear abnormal Not Available [facility] ([facility]) [address] [place], [address], 01/25/2016 06:05:51 01/23/20 16 01/24/2016 urina lysis compl ete, refle x cultu re WBC esterase NEGATI VE negati ve Not Available [facility] ([facility]) [address] [place], [address], 01/25/2016 06:05:51 01/23/20 16 01/24/2016 urina lysis compl ete, refle x cultu re protein NEGATI VE negati ve/tra ce Not Available [facility] ([facility]) [address] [place], [address], 01/25/2016 06:05:51 01/23/20 16 01/24/2016 urina lysis compl ete, refle x cultu re glucose NEGATI VE negati ve Not Available [facility] ([facility]) [address] [place], [address], 01/25/2016 06:05:51 01/23/20 16 01/24/2016 urina lysis compl ete, refle x cultu re ketones NEGATI VE negati ve Not Available [facility] ([facility]) [address] [place], [address], 01/25/2016 06:05:51 01/23/20 16 01/24/2016 urina lysis compl ete, refle x cultu re occult blood NEGATI VE negati ve Not Available [facility] ([facility]) [address], [place], [address], 01/25/2016 06:05:51 01/23/20 16 01/24/2016 urina lysis compl ete, refle x cultu re bilirubin NEGATI VE negati ve Not Available [facility] ([facility]) [address], [place], [address], 01/25/2016 06:05:51 01/23/20 16 01/24/2016 urina lysis compl ete, refle x cultu re urobilinogen ,semi-qn 0.2 mg/dL 0.2-1. 0 Not Available [facility] ([facility]) [address], [place], [address], 01/25/2016 06:05:51 01/23/20 16 01/24/2016 urina lysis compl ete, refle x cultu re nitrite, urine NEGATI VE negati ve Not Available [facility] ([facility]) [address], [place], [address], 01/25/2016 06:05:51 01/23/20 16 01/24/2016 urina lysis compl ete, refle x cultu re microscopic examination COMMEN T MICRO SCOPI C FOLLO WS IF INDIC ATED. Not Available [facility] ([facility]) [address], [place], [address], 01/25/2016 06:05:51 01/23/20 16 01/24/2016 urina lysis compl ete, refle x cultu re microscopic examination SEE BELOW: MICRO SCOPI C WAS INDIC ATED AND WAS PERFO RMED. Not Available [facility] ([facility]) [address], [place], [address], 01/25/2016 06:05:51 01/23/20 16 01/24/2016 urina lysis compl ete, refle x cultu re WBC 0-5 /hpf 0 - 5 Not Available [facility] ([facility]) [address], [place], [address], 01/25/2016 06:05:51 01/23/20 16 01/24/2016 urina lysis compl ete, refle x cultu re RBC 0-2 /hpf 0 - 2 Not Available [facility] ([facility]) [address], [place], [address], 01/25/2016 06:05:51 01/23/20 16 01/24/2016 urina lysis compl ete, refle x cultu re epithelial cells (non renal) >10 /hpf 0 - 10 abnormal Not Available [facility] ([facility]) [address], [place], [address], 01/25/2016 06:05:51 01/23/20 16 01/24/2016 urina lysis compl ete, refle x cultu re epithelial cells (renal) CRANE CREW SUPERVISOR Not Available [facility] ([facility]) [address], [place], [address], 01/25/2016 06:05:51 01/23/20 16 01/24/2016 urina lysis compl ete, refle x cultu re casts CRANE CREW SUPERVISOR Not Available [facility] ([facility]) [address], [place], [address], 01/25/2016 06:05:51 01/23/20 16 01/24/2016 urina lysis compl ete, refle x cultu re cast type CRANE CREW SUPERVISOR Not Available [facility] ([facility]) [address], [place], [address], 01/25/2016 06:05:51 01/23/20 16 01/24/2016 urina lysis compl ete, refle x cultu re crystals CRANE CREW SUPERVISOR Not Available [facility] ([facility]) [address] [place], [address], 01/25/2016 06:05:51 01/23/20 16 01/24/2016 urina lysis compl ete, refle x cultu re crystal type CRANE CREW SUPERVISOR Not Available [facility] ([facility]) [address] [place], [address], 01/25/2016 06:05:51 01/23/20 16 01/24/2016 urina lysis compl ete, refle x cultu re mucus threads PRESEN T not estab. Not Available [facility] ([facility]) [address] [place], [address], 01/25/2016 06:05:51 01/23/20 16 01/24/2016 urina lysis compl ete, refle x cultu re bacteria MANY none seen/f ew abnormal Not Available [facility] ([facility]) [address], [place], [address], 01/25/2016 06:05:51 01/23/20 16 01/24/2016 urina lysis compl ete, refle x cultu re yeast CRANE CREW SUPERVISOR Not Available [facility] ([facility]) [address] [place], [address], 01/25/2016 06:05:51 01/23/20 16 01/24/2016 urina lysis compl ete, refle x cultu re trichomonas CRANE CREW SUPERVISOR Not Available [facility] ([facility]) [address] [place], [address], 01/25/2016 06:05:51 01/23/20 16 01/24/2016 urina lysis compl ete, refle x cultu re comment CRANE CREW SUPERVISOR Not Available [facility] ([facility]) [address] [place], [address], 01/25/2016 06:05:51 01/23/20 16 01/24/2016 urina lysis compl ete, refle x cultu re urinalysis reflex COMMEN T THIS SPECI MEN HAS REFLE XED TO A URINE CULTU RE. Not Available [facility] ([facility]) [address], [place], [address], 01/25/2016 06:05:51 01/23/20 16 01/25/2016 urina lysis compl ete, refle x cultu re urine culture, routine FINAL REPORT Not Available [facility] ([facility]) [address], [place], [address], 01/25/2016 06:05:51 01/23/20 16 01/25/2016 urina lysis compl ete, refle x cultu re result 1 NO GROWTH Not Available [facility] ([facility]) [address], [place], [address], 01/25/2016 06:05:51 05/20/19 19 05/21/2018 HIV (1+O+ 2) Ab, serum HIV 4TH generation Non Reacti ve non reacti ve Not Available [facility] (Lab) [address] [place], [address], 05/21/2018 06:16:20 05/20/1905/21/2018 RPR (rapi d plasm a reagi n), titer , serum RPR Non Reacti ve non reacti ve Not Available [facility] (Lab) [address] [facility], [place], [address], 05/21/2018 06:16:21 05/20/1905/23/2018 bacte rial vagin osis + vagin itis panel , vagin al atopobium vaginae High - 2 score abnormal Not Available [facility] (Lab) [address] [place], [address], 05/23/2018 15:07:21 05/20/1905/23/2018 bacte rial vagin osis + vagin itis panel , vagin al bvab 2 High - 2 score abnormal Not Available [facility] (Lab) [address] [place], [address], 05/23/2018 15:07:21 05/20/19 19 05/23/2018 bacte rial vagin osis + vagin itis panel , vagin al megasphaera 1 High - 2 score abnormal Calcu late total score by norma mireles the 3 indiv idual bacte rial vagin osis (BV) marke r score s toget her. Total score is inter prete d as follo ws: Total score 0-1: Indic ates the absen ce of BV. Total score 2: Indet ermin ate for BV. Addit ional clini trav data shoul d be evalu ated to estab eric a diagn osis. Total score 3-6: Indic ates the prese nce of BV. . This test was devel oped and its perfo rmanc e mary cteri stics deter mined by [employer]. It has not been clear ed or appro debo by the Food and Drug Admin istra tion. The FDA has deter mined that such clear ance or appro gillian is not neces monika. Not Available [facility] (Lab) [address] [place], [address], 05/23/2018 15:07:21 05/20/19 19 05/23/2018 bacte rial vagin osis + vagin itis panel , vagin al monica albicans, FLIP Positi ve negati ve abnormal Not Available [facility] ([facility] [address] [facility], [place], [address], 05/23/2018 15:07:21 05/20/1905/23/2018 bacte rial vagin osis + vagin itis panel , vagin al monica glabrata, FLIP Negati ve negati ve This test was devel oped and its perfo rmanc e mary cteri stics deter mined by [employer]. It has not been clear ed or appro debo by the Food and Drug Admin istra tion. The FDA has deter mined that such clear ance or appro gillian is not neces monika. Not Available [facility] (Lab) [address] [place], [address], 05/23/2018 15:07:21 05/20/19 19 05/23/2018 bacte rial vagin osis + vagin itis panel , vagin al trich vag by FLIP Negati ve negati ve Not Available [facility] (Lab) [address], [place], [address], 05/23/2018 15:07:21 05/20/19 19 05/23/2018 bacte rial vagin osis + vagin itis panel , vagin al chlamydia trachomatis, FLIP Negati ve negati ve Not Available [facility] (Lab) [address], [place], [address], 05/23/2018 15:07:21 05/20/19 19 05/23/2018 bacte rial vagin osis + vagin itis panel , vagin al neisseria gonorrhoeae, FLIP Negati ve negati ve Not Available [facility] (Lab) [address], [place], [address], 05/23/2018 15:07:21 05/20/19 19 05/20/2018 urina lysis , dipst ick Leukocytes Negati ve Not Available In-Office Order Internal Use Only DO Not Attach Compendium DO Not Attach Compendium, Do Not Delete/merge, 05/20/2018 14:31:20 05/20/1905/20/2018 urina lysis , dipst ick Nitrite negati ve Not Available In-Office Order Internal Use Only DO Not Attach Compendium DO Not Attach Compendium, Do Not Delete/merge, 05/20/2018 14:31:20 05/20/1905/20/2018 urina lysis , dipst ick Urobilinogen .2 Not Available In-Of fice Order Internal Use Only DO Not Attach Compendium DO Not Attach Compendium, Do Not Delete/merge, 05/20/2018 14:31:20 05/20/1905/20/2018 urina lysis , dipst ick Protein Negati ve Not Available In-Office Order Internal Use Only DO Not Attach Compendium DO Not Attach Compendium, Do Not Delete/merge, 05/20/2018 14:31:20 05/20/1905/20/2018 urina lysis , dipst ick pH 5.5 Not Available In-Office Order Internal Use Only DO Not Attach Compendium DO Not Attach Compendium, Do Not Delete/merge, 05/20/2018 14:31:20 05/20/1905/20/2018 urina lysis , dipst ick Blood Negati ve Not Available In-Office Order Internal Use Only DO Not Attach Compendium DO Not Attach Compendium, Do Not Delete/merge, 05/20/2018 14:31:20 05/20/1905/20/2018 urina lysis , dipst ick Specific [place] 1.030 Not Available In-Off ice Order Internal Use Only DO Not Attach Compendium DO Not Attach Compendium, Do Not Delete/merge, 05/20/2018 14:31:20 05/20/1905/20/2018 urina lysis , dipst ick Ketone Negati ve Not Available In-Office Order Internal Use Only DO Not Attach Compendium DO Not Attach Compendium, Do Not Delete/merge, 05/20/2018 14:31:20 05/20/1905/20/2018 urina lysis , dipst ick Bilirubin Negati ve Not Available In-Office Order Internal Use Only DO Not Attach Compendium DO Not Attach Compendium, Do Not Delete/merge, 05/20/2018 14:31:20 05/20/1905/20/2018 urina lysis , dipst ick Glucose Negati ve Not Available In-Office Order Internal Use Only DO Not Attach Compendium DO Not Attach Compendium, Do Not Delete/merge, 05/20/2018 14:31:20 05/20/1905/20/2018 urina lysis , dipst ick Appearance Clear Not Available In-Offi ce Order Internal Use Only DO Not Attach Compendium DO Not Attach Compendium, Do Not Delete/merge, 05/20/2018 14:31:20 05/20/1905/20/2018 urina lysis , dipst ick Color Yellow Not Available In-Office Order Internal Use Only DO Not Attach Compendium DO Not Attach Compendium, Do Not Delete/merge, 05/20/2018 14:31:20 05/20/19 19 05/20/2018 pregn jcarlos test, urine HCG negati ve Not Available In-Office Order Internal Use Only DO Not Attach Compendium DO Not Attach Compendium, Do Not Delete/merge, [id number] 05/20/2018 14:31:18 Result Notes Documentation Provider Name and Address Organization Details Recorded Time Urinalysis Complete, Reflex Culture : many bacteria GINNY Cross Attn: Accounting,[address], [place], [address], [place] [facility] 01/25/2016 19:20:19 Problems Name Problem SNOMED Code Status Onset Date Resolution Date Notes Provider Name and Address Organization Details Recorded Time Gastro-esop hageal reflux disease with esophagitis 581455376 Active 2017 PREMA MENJIVAR Attn: Accountemelina g,[address] [place], [address], [place] [facility] 4 15:17:50 Allergic rhinitis 50677804 Active 2023 PREMA MENJIVAR Attn: Accountin g,[address] [place], [address], [place] [facility] 4 15:18:27 Abdominal pain 90345824 Completed 05/20/2018 Shanae Shankar RN null, [place] [facility] 9 14:15:09 Dysuria 22582566 Completed 05/20/2018 Shanae Shankar RN null, [place] [facility] 9 14:15:03 Problem Notes None recorded. Medical Equipment None Reported. Allergies Allergen ID Allergen Name Allergen Category Reaction Reaction Severity Criticality Documentation Date Start Date Code Code System Note Provider Name and Address Organization Details Recorded Time 176548 melon extract food Not available Not available Not available 07/09/2021 17402 10 RxNorm Not Available Not Available Not Available 358426 banana extract food,medi cation Not available Not available Not available 07/09/2021 29028 9 RxNorm Not Available Not Available Not Available Medications Name Sig Start Date Stop Date Status Note LastModified by Organization Details LastModified Time cyclobenzap rine 10 mg tablet 07/09 completed Not Available Not Available Not Available doxycycline hyclate 100 mg capsule TAKE 1 CAPSULE BY MOUTH EVERY 12 HOURS FOR 7 DAYS active Not Available Not Available No t Available cetirizine 10 mg tablet Take 1 tablet every day by oral route in the morning for 30 days. active Not Available Not Available No t Available fluconazole 150 mg tablet TAKE 1 TABLET BY MOUTH 1 TIME active Not Available Not Available No t Available metronidazo le 0.75 % (37.5 mg/5 gram) vaginal gel INSERT 1 APPLICATO RFUL VAGINALLY EVERY DAY AT BEDTIME FOR 5 DAYS 03/15 completed Not Available Not Available Not Available prednisone 20 mg tablet TAKE 2 TABLETS BY MOUTH EVERY DAY 07/09 completed Not Available Not Available Not Available metronidazo le 500 mg tablet TAKE 1 TABLET BY MOUTH TWICE DAILY FOR 7 DAYS. TAKE WITH FOOD AND AVOID ALCOHOL WHILE TAKING THIS MEDICATIO N. 03/15 completed Not Available Not Available Not Available sulfamethox azole 800 mg-trimetho prim 160 mg tablet 05/20 completed Not Available Not Available Not Available pantoprazol e 20 mg tablet,leann yed release Take 1 tablet every day by oral route in the morning for 30 days, for acid reflux. active Not Available Not Available No t Available amoxicillin 400 mg-potassiu m clavulanate 57 mg/5 mL oral suspension TAKE 11 ML BY MOUTH TWICE DAILY FOR 7 DAYS. DISCARD REMAINDER 03/15 completed Not Available Not Available Not Available amoxicillin 875 mg tablet 05/20 completed Not Available Not Available Not Available famotidine 20 mg tablet 07/09 completed Not Available Not Available Not Available phenazopyri dine 95 mg tablet Take 1 tablet every 8 hours by oral route as needed for 3 days. 05/20 completed Not Available Not Available Not Available benzonatate 100 mg capsule TAKE 1 CAPSULE BY MOUTH EVERY 8 HOURS NEEDED 03/15 completed Not Available Not Available Not Available cephalexin 250 mg/5 mL oral suspension Take 10 mL 3 times a day by oral route as directed for 10 days. 05/20 completed Not Available Not Available Not Available ranitidine 150 mg tablet Take 1 tablet twice a day by oral route for 30 days. 07/09 completed Not Available Not Available Not Available ibuprofen 600 mg tablet TAKE 1 TABLET BY MOUTH EVERY 6 HOURS NEEDED 07/09 completed Not Available Not Available Not Available albuterol sulfate HFA 90 mcg/actuati on aerosol inhaler Inhale 2 puffs every 4-6 hours by inhalatio n route as needed for 30 days. active Not Available Not Available No t Available ondansetron 4 mg disintegrat ing tablet 05/20 completed Not Available Not Available Not Available fluticasone propionate 50 mcg/actuati on nasal spray,suspe nsion [place] 1 spray every day by intranasa l route as directed for 30 days. active Not Available Not Available No t Available azithromyci n 500 mg tablet TAKE 2 TABLETS BY MOUTH 1 TIME active Not Available Not Available No t Available Sprintec (28) 0.25 mg-0.035 mg tablet Take 1 tablet every day by oral route. 07/09 completed Not Available Not Available Not Available Vitals Date Recorded Body weight Body temperature Provider N valentina and Address Organization Details Last Updated DateTime 04/07/2018 00156.28 g 98.3 [degF] Winter Walden [place] [facility] 04/07/2018 17:19:39 Date Recorded Body weight Body height Body mass index (BMI) Body mass index (BMI) Percentile per age and sex Body temperature Systolic blood pressure Diastolic blood pressure Provider Name and Address Organization Details Last Updated DateTime 9 31852.8 3 g 160.02 cm 17.7 kg/m2 8 % 98.2 [degF] 102 mm[Hg] 52 mm[Hg] Shanae Shankar RN [place] [facility] 9 14:13:53 Date Recorded Body height Body mass index (BMI) Percentile per age and sex Body mass index (BMI) Body weight Oxygen saturation Oxygen saturation in Arterial blood by Pulse oximetry Heart rate Respiratory rate Body temperature Systolic blood pressure Diastolic blood pressure Provider Name and Address Organization Details Last Updated DateTime 2 160.02 cm 4 % 17.6 kg/m2 23076.3 4 g 99 % 99 % 84 /min 16 /min 98.1 [degF] 110 mm[Hg] 62 mm[Hg] Kiarra cervantes [place] [facility] 2 14:44:08 Date Recorded Body height Body mass index (BMI) Body weight Oxygen saturation Oxygen saturation in Arterial blood by Pulse oximetry Heart rate Respiratory rate Systolic blood pressure Diastolic blood pressure Provider Name and Address Organization Details Last Updated DateTime 4 160.02 cm 17.2 kg/m2 43899.4 6 g 97 % 97 % 99 /min 16 /min 115 mm[Hg] 80 mm[Hg] Denae Lopez MA [facility] 4 15:00:22 Date Recorded Body height Body weight Body temperature Body mass index (BMI) Systolic blood pressure Diastolic blood pressure Provider Name and Address Organization Details Last Updated DateTime 6 160.02 cm 30971.3 8359 g 97.9 [degF] 19 kg/m2 118 mm[Hg] 58 mm[Hg] William Mon [facility] 6 11:28:45 Social History Question Answer Notes LastModified by Organizat ion Details LastModified Time Tobacco Smoking Status Current Every Day Smoker BERNARD Shankar RN [facility], [facility] 05/20/2018 14:17:46 Are You Or Have You Been Involved With Bullying? No Information not available 05/20/2018 What Is Your Level Of Caffeine Consumption? Occasional Information not available 05/20/2018 What Type Of Diet Are You Following? REGULAR Information not available 05/20/2018 What Is The Fluoride Status Of Your Home? Fluoridated Information not available 05/20/2018 Are There Any Guns Present In Your Home? No Information not available 05/20/2018 What Is Your Home Situation? Relatives Gpa Information not available 07/09/2021 Do You Use Insect Repellent Routinely? Yes Information not available 05/20/2018 Car Seat Type Or Seat Belt? Seat Belt Information not available 05/20/2018 Parent Involvement? Both Parents Involved Information not available 05/20/2018 Riding In Car Front Seat? Yes Information not available 05/20/2018 What Was The Date Of Your Most Recent Tobacco Screening? 07/09/2021 Information not available 07/09/2021 What Is Your Parents' Marital Status? Information not available 05/20/2018 Do You Have Any Siblings? 2 Information not available 05/20/2018 Do You Have Smoke And Carbon Monoxide Detectors In Your Home? Yes Information not available 05/20/2018 Are You Passively Exposed To Smoke? Yes Information not available 05/20/2018 Do You Use Sunscreen Routinely? Yes Information not available 05/20/2018 How Many Years Have You Smoked Tobacco? 2 Information not available 05/20/2018 Sex: Female Functional Status Question Answer Note LastModified by Organization D etails LastModified Time What is your exercise level? Moderate monson developmental centerer9 Information not available 05/20/2018 Mental Status None recorded. Family History Relationship Description Onset Age of this Age Resolved Age Notes LastModified by Organization Details LastModified Time Father No current problems or disability leisa Not available 05/21 14:34:38 Mother No current problems or disability leisa Not available 05/21 14:34:38 Notes:mom on some medication s but don't know what Medical History Condition Response Other Y Gynecological History Statement/Question Response Date of LMP 06/16/2021 Menses Monthly N Duration of Flow (days) 4 Age at Menarche 13 Current Control Method Condoms Age at First Child 1 LMP Definite Obstetrics History GPAL:G 0 P 0 0 0 0 Immunizations Vaccine Type Date Status Note Provider Nam e and Address Organization Details Recorded Time Influenza, split virus, quadrivalent, PF 6 [facility] 02:32:30 HPV9 6 [facility] 05/14/2019 02:42:06 DTaP, unspecified formulation 2 completed [place] [facility] 03/13/2016 18:18:48 DTaP, unspecified formulation 2 completed [place] [facility] 03/13/2016 18:18:55 DTaP, unspecified formulation 2 completed [place] [facility] 03/13/2016 18:19:01 DTaP, unspecified formulation 7 completed [place] [facility] 03/13/2016 18:19:09 DTaP, unspecified formulation 4 completed Freddia [place] [facility] 03/13/2016 18:24:28 Hib, unspecified formulation 2 completed [place] [facility] 03/13/2016 18:34:59 Hib, unspecified formulation 2 completed [place] [facility] 03/13/2016 18:35:08 Hib, unspecified formulation 2 completed [place] [facility] 03/13/2016 18:35:15 Hib, unspecified formulation 3 completed [place] [facility] 03/13/2016 18:35:21 Hep A, unspecified formulation 7 completed [place] [facility] 03/13/2016 18:38:08 Hep A, unspecified formulation 8 completed [place] [facility] 03/13/2016 18:38:15 Hep A, unspecified formulation 4 completed [place] [facility] 03/13/2016 18:38:20 Hep B, unspecified formulation 1 completed [place] [facility] 03/14/2016 09:39:57 Hep B, unspecified formulation 2 completed [place] [facility] 03/14/2016 09:40:05 Hep B, unspecified formulation 3 completed [place] [facility] 03/14/2016 09:40:13 HPV, unspecified formulation 3 completed [place] [facility] 03/14/2016 09:40:33 influenza, unspecified formulation 9 completed [place] [facility] 03/14/2016 09:41:06 influenza, unspecified formulation 2 completed [place] [facility] 03/14/2016 09:41:13 influenza, unspecified formulation 3 completed [place] [facility] 03/14/2016 09:41:20 MMR 3 completed [place] [facility] 03/14/2016 09:41:44 MMR 7 completed [place] [facility] 03/14/2016 09:41:51 meningococcal ACWY, unspecified formulation 3 completed [place]arsh[place] [facility] 03/14/2016 09:42:11 pneumococcal, unspecified formulation 2 completed [place] [facility] 03/14/2016 09:42:30 pneumococcal, unspecified formulation 3 completed [place] [facility] 03/14/2016 09:46:21 pneumococcal, unspecified formulation 3 completed [place] [facility] 03/14/2016 09:46:33 pneumococcal, unspecified formulation 4 completed [place] [facility] 03/14/2016 09:46:41 polio, unspecified formulation 2 completed [place] [facility] 03/14/2016 09:48:09 polio, unspecified formulation 2 completed [place] [facility] 03/14/2016 09:48:21 polio, unspecified formulation 2 completed [place] [facility] 03/14/2016 09:48:29 polio, unspecified formulation 7 completed [place] [facility] 03/14/2016 09:48:38 Tdap 3 completed [place] [facility] 03/14/2016 09:48:51 varicella 3 completed [place] [facility] 03/14/2016 09:49:07 varicella 7 completed [place] [facility] 03/14/2016 09:49:21 Past Encounters Encounter ID Performer Location Encounter Start Date Encounter Closed Date Diagnosis/Indication Diagnosis SNOMED-CT Code Diagnosis ICD10 Code Diagnosis Note [id number] [facility] [address] [place] [address] 01/23/2016 11:02:18 01/23/2016 12:17:37 Adolescent care 445011049 Z00.3 Abdominal pain 61900808 R10.9 [id number] [facility] [address] [place] [address] 04/07/2018 17:16:20 04/08/2018 09:18:58 Gastro-esophageal reflux disease with esophagitis 287287187 K21.0 Take some TUMS chews TID and avoid chocolate and spicy foods [id number] Lee Feldman [facility] [address] [place] [address] 05/20/2018 13:57:23 05/24/2018 10:36:52 Gynecologic examination 87286080 Z01.411 Venereal d isease screening 543520771 Z11.3 Tobacco user 378912745 Z 72.0 Oral contr aceptive prescribed 788069314 Z30.011 Dysmenorrhea 735896185 N 94.6 [id number] PRMEA MENJIVAR [facility] [address] [place] [address] 07/09/2021 14:20:18 07/10/2021 10:45:55 Gluten sensitivity 206668044 K90.41 past 2 yrsdifficu lty swallowing with gluten, lactose and melonshas been avoiding foods and eating mostly vegetables send for allergy referral Gastroesop hageal reflux disease 035033876 K21.9 previously on med with improvemen t of reflux sxrefilldi scussed future GI referral if tufter attributes symptoms to eosinophil lic esophagiti s Depression screening 171 618503 Z13.31 PHQ 0 [id number] PREMA MENJIVAR [facility] [address] [place] [address] 03/15/2024 14:46:51 03/15/2024 15:24:54 Plantar wart of right foot [id number] 2197958 B07.0 x6 monthsincr easing in size and cluster to plantar aspect of R footdenies paincompou nd W made it worserefer to podiatry Allergic rhinitis 416984 04 J30.9 refill meds Gastro-eso phageal reflux disease with esophagitis 093773011 K21.00 refill Influenza vaccination declined 481274151 Z28.21 Underweight 535598714 R6 3.6 Depression screening 171 925370 Z13.31 PHQ 0 Health Concerns Section Related Observation LastModified by Organization Detai ls LastModified Time None Recorded Concern Status LastModified by Organization Details LastModified Time None Recorded Advance Directives Directive None Recorded Payers Encounter Date Sequence Insurance Name Policy Number Policy Pool Covered Member ID Pool Member ID Guarantor Name 01/23/2016 1 [place] [facility] Ragini Duckworth [id number] Tashia Duckworth 04/07/2018 1 [facility] (MEDICAID HMO) [id number] Ragini Duckworth [id number] Tashia Duckworth 05/20/2018 1 [facility] (MEDICAID HMO) [id number] Ragini Duckworth [id number] Tashia Duckworth 07/09/2021 1 [facility] (MEDICAID HMO) [id number] Ragini Duckworth [id number] Tashia Duckworth 03/15/2024 1 [facility] (MEDICAID HMO) [id number] Ragini Duckworth [id number] Tashia Duckworth Notes Date Note Type Note Provider Name and Address Organization Details Recorded Time 04/07/2018 text/html Ragini was seen in the [facility] ED 8 days ago for ABD pain; labs and a CT were w/o finding; pain is worse w/ eating; fever before being seen in the ER but none since Nato gonzalez [facility] 04/07/2018 17:38:27 05/20/2018 text/html Annual GYNReport ed bypatient.Menstrual cycle:Severe dysmenorrhea Urinary symptoms:No hematuria; No incontinence Vulva:No genital lesion Vagina:Normal vaginal discharge Breast:No breast pain; No breast lump; No nipple discharge Current Contraception:Sexua lly active: high-risk behavior; Wants to discuss contraceptive options; New sexual partner; Requests testing for sexually transmitted infections Sexual complaints:No sexual complaints; No pain during intercourse; Normal libido Menopausal Symptoms:No menopausal symptoms; Normal vaginal lubrication Psychological symptoms:No depression; No anxiety; No PMDD Preventive measures:Encourage self breast examination; Encourage regular exercise; Encourage no tobacco use 18 y/o WF here for annual check up. SHe is requesting testing for std doesnt use condoms all the time. She wants to start oral control. SHe is a smoker uses vaping. She has been advised to stop vaping. JD CoffeyPDanielle Attn: Accounting[address] [place], [address], [facility] 05/21/2018 14:36:34 07/09/2021 text/html Pt presents for allergy referral. Reports she had pork chop stuck in her throat 2 yrs ago and had to have emergency surgery to remove it. She was told she has acid reflux. Pt had biopsy of esophagus, told to establish with GI and she was lost to f/u.C/o difficulty swallowing with foods high in gluten, diary, and melons. No difficulty swallowing liquids.Denies fever, chills, chest pain, SOB, odynophagia, n/v/d, abd pain, dizziness, weakness, or headaches. PREMA MENJIVAR Attn: Accounting[address] [place], [address], [facility] 07/09/2021 17:03:04 03/15/2024 text/html Pt presents with plantar wart to R foot. States that she developed small wart 3 yrs ago and went away with Compound W. Reports that wart came back 6 months ago and is spreading to the bottom of her foot in a cluster. Denies pain. She applied compound W and it made warts increase in size. PREMA MENJIVAR Attn: Accounting[address] [place], [address], [facility] 03/15/2024 16:23:45 OBGyn Episode No OBEpisode recorded.
--- OUTSIDE RECORDS SUMMARY | 2024-08-13 11:13 | XMS_ITS | Clinical Summary ---
Author Organization [place] [id number] [facility] Address [address] [place] [address] Care Team Providers Care Administrative Representative Name Role Phone Alondra Montalvo Primary Care Provider [phone] Allergies No known active allergies Medications pantoprazole DR (PROTONIX) 20 mg EC tablet Take 1 tablet (20 mg total) by mouth daily Active cetirizine (ZyrTEC) 10 mg chewable tablet Take 1 tablet (10 mg total) by mouth daily Active albuterol HFA (PROVENTIL HFA,VENTOLIN HFA,PROAIR HFA) 90 mcg/actuation inhaler Inhale 2 puffs every 4 (four) hours as needed for shortness of breath Active Medical History Medical History Date Comments GERD (gastroesophageal reflux disease) Eosinophilic esophagitis Social History Tobacco Use Types Packs/Day Years Used Date Smoking Tobacco: Every Day Cigarettes Personal Safety Answer Date Recorded Have you ever been in or are you currently in a harmful physical or emotional relationship or is someone making you feel afraid or unsafe? Denies 02/28/2024 Comments No Sex and Gender Information Value Date Recorded Sex Assigned at Not on file Legal Sex Female 2:35 AM COORDINATOR VOLUNTEER SERVICES Gender Identity Not on file Sexual Orientation Not on file Obstetrics History Last Filed Vital Signs Vital Sign Reading Time Taken Comments Blood Pressure 135/75 02/28/2024 9:41 AM COORDINATOR VOLUN[employer] Pulse 77 02/28/2024 9:41 AM COORDINATOR VOLUN[employer]ER [employer] Temperature 36.5 C (97.7 F) 02/28/2024 9:41 AM COORDINATOR VOLUNTEER SERVICES Respiratory Rate 17 02/28/2024 9:41 AM COORDINATOR VOLUNTEER SERVICES Oxygen Saturation 95% 02/28/2024 9:41 AM COORDINATOR VOLUNTEER SERVICES Inhaled Oxygen Concentration - - Weight 45.8 kg (101 lb) 02/28/2024 9:41 AM COORDINATOR VOLUNTEER SERVICES Height 160 cm (5' 3 ) 02/28/2024 9:41 AM COORDINATOR VOLUNTEER SERVICES Body Mass Index 17.89 02/28/2024 9:41 AM COORDINATOR VOL[employer]ER [employer] Plan of Treatment Health Maintenance Due Date Last Done Comments Cervical Cancer Screening 2001 Depression Screening 2001 Hepatitis C Screening 2001 Pneumococcal vaccine <65 (1 of 1 - PPSV23) 2007 03/07/2004, 06/28/2002, 05/03/2002, Additional history exists Meningococcal B Vaccine (1 o f 2 - Standard) 2017 Regular Well Visit/Exam 18-64 2019 DTaP/Tdap/Td Vaccine (7 - Td or Tdap) 12/28/2022 12/28/2012, 12/01/2006, 12/01/2006, Additional history exists Influenza Vaccine (Season Ended) 2024 01/23/2016, 02/03/2013, 02/03/2013, Additional history exists Hepatitis B Screening Completed 05/03/2002 , 05/03/2002, 2001, Additional history exists Varicella Vaccines Completed 12/01/2006, 0 12/01/2006, 06/28/2002 HPV Vaccines Completed 01/23/2016, 06/2012, 12/28/2012 Insurance [facility] Care Teams Administrative Representative Relationship Specialty Start Date End Date Alondra Montalvo PA [facility] [place] [address] PCP - General Physician Collection Systems Consultant 12/01/22
--- OUTSIDE RECORDS SUMMARY | 2024-08-13 11:13 | XMS_ITS | Clinical Summary ---
Author Organization [facility] Address [address] [place] [address] Care Team Providers Care Wool Hat Finisher Name Role Phone Sukhi Yung MD Primary Care Provider [phone] Source Comments [facility],non-owned Affiliates and Associated Physician Practices is amultiple site organization consisting of ambulatory clinics and hospital sitesin [place], [place], [place] and [place]. This disclosure is being madepursuant to the Care Everywhere program and may not contain all information available regarding this patient. Last updated 18.[facility] Allergies Active Allergy Reactions Criticality Noted Date Comments Charentais Melon (Croatian Melon) Unknown 06/2022 Lactose Unknown 04/29/2022 Pollen Extract Unknown 04/29/2022 Medications * Be aware that medications may not be up to date on this document. Alwaysverify current medications with the patient. raNITIdine (ZANTAC) 150 MG capsule Take 150 mg by mouth 2 times daily as needed for Heartburn Active omeprazole (PRILOSEC) 20 MG capsule Take 1 capsule by mouth 2 times daily,before breakfast and supper 60 capsule 9 Active Active Problems Problem Noted Date Diagnosed Date Dysphagia 09/29/2018 Assessment & Plan (09/29/2018 9:46 AM CDT): Assessment: Taiwo is a 18yo F with PMH of GERD who presents with acute food impaction of esophagus, found to have meat bolus stuck in esophagus, being managed with planned EGD. In pt with food impaction, higher incidence of underlying esophageal pathology compared to other foreign bodies - esophagitis, anatomic, motility issues- so GI consulted. Plan: - no red flags so dont need urgent removal (comforable, handling secretions) - GI consulted and plan for EGD - mIVF NPO for procedure - monitor o2 sat and VS Food impaction of esophagus 09/29/2018 Radius and ulna distal fracture 03/26/2016 Foreign body in esophagus Social History Tobacco Use Types Packs/Day Years Used Date Smoking Tobacco: Never Smokeless Tobacco: Never Alcohol Use Standard Drinks/Week Comments Yes 0 (1 standard drink = 0.6 oz pur e alcohol) Comments No Sex and Gender Information Value Date Recorded Sex Assigned at Not on file Legal Sex Female 5:44 AM BUFFING WHEEL INSPECTOR Gender Identity Not on file Sexual Orientation Not on file Last Filed Vital Signs Vital Sign Reading Time Taken Comments Blood Pressure 110/72 09/30/2018 7:30 AM CDT Pulse 66 09/30/2018 7:30 AM CDT Temperature 36.3 C (97.4 F) 09/30/2018 7:30 AM CDT Respiratory Rate 14 09/30/2018 7:30 AM CDT Oxygen Saturation 93% 09/29/2018 11:45 PM CDT Inhaled Oxygen Concentration 100% 03/15/2016 3 :10 AM BUFFING WHEEL INSPECTOR Weight 43.5 kg (95 lb 14.4 oz) 09/29/2018 9:05 A M CDT Height 158 cm (5' 2.21 ) 09/29/2018 9:05 AM CDT Body Mass Index 17.42 09/29/2018 9:05 AM CDT Plan of Treatment Health Maintenance Due Date Last Done Comments PAP SMEAR 2001 HPV VACCINE (1 - 3-dose series) 2016 CHLAMYDIA/GONORRHEA SCREENING 2017 MENINGOCOCCAL (Group B) VACCINE SHARED DECISION-MAKING (1 of 2 - Standard) 2017 HEPATITIS C SCREENING 03/04/2019 DTAP/TDAP/TD VACCINES (1 - Tdap) 2020 HEPATITIS B VACCINE (1 of 3 - 19+ 3-dose series) 2020 COVID-19 VACCINE ( season) 2023 DEPRESSION SCREENING 04/27/2024 INFLUENZA VACCINE (Season Ended) 2024 01/23/2016, 02/03/2013, 01/23/2012, Additional history exists ZOSTER VACCINE (1 of 2) 2051 HIV SCREENING Completed 03/17/2022 HIB VACCINE Aged Out No longer eligi ble based on patient's age to complete this topic MENINGOCOCCAL GROUPS A/C/Y/W VACCINE Aged Out No longer eligible based on patient's age to complete this topic PNEUMOCOCCAL VACCINE Aged Out No long er eligible based on patient's age to complete this topic Insurance [facility] [place] [address] Care Teams Wool Hat Finisher Relationship Specialty Start Date End Date Sukhi Yung MD [address] [place] [address] PCP - General 08/26/21
--- OUTSIDE RECORDS SUMMARY | 2024-08-13 11:13 | XMS_ITS | Data Portability ---
Author Organization [facility] Address [address] [place] [address] Care Team Providers Care Dietary Internship Name Role Phone PINKYKITTY PEREA Primary Care Provider Assessment Encounter Date Assessment Date Assessment LastModified by Organization Details LastModified Time 11/12/2022 11/12/2022 Annual gynecological exam performed. Patient will come back in a year unless there are new symptoms. [email or web address] Not available 11/12/2022 15:41:07 Plan of Treatment Reminders Order Date Submit Date Provider Last Modified By Organization Details Last Modified Time Details Appointments U/S OB SNEAK PEAK 2024 11:00A M ULTRASOUND Not available Not available Not available OB SCREEN 2024 11:30A M Adeola HAMPTON MD Not available Not available Not available Lab hbcab (hepati tis B core Ab) igm, serum 2024 025 [facility] (Lab), [address], [place], [address], 07/06/2024 13:32:36 HBsAg (hepati tis B surface Ag), serum 2024 025 [facility] (Lab), [address], [place], [address], 07/06/2024 13:32:34 hepatit is C virus Ab, serum 2024 025 [facility] (Lab), [address], [place], [address], 07/06/2024 13:32:35 HIV 1+2 AB + HIV 1 p24 Ag, qualita tive immunoa ssay, serum 2024 025 [facility] (Lab), [address], [place], [address], 07/06/2024 13:32:33 RPR (rapid plasma reagin) , serum 2024 025 [facility] (Lab), [address], [place], [address], 07/06/2024 13:32:36 pregnan cy test, urine 2024 025 [facility], [address], [address], [place], [address], 07/05/2024 10:20:14 pregnan cy test, urine [address] [place], [place] [address], [address], [place], [address], 08/03/2023 10:35:38 Referral None recorde d. Procedures None recorde d. Surgeries None recorde d. Imaging US, obstetr ic, transva ginal 2024 025 [email or web address], [address], [address], [place], [address], 08/02/2024 14:14:06 US, pelvis [address]23 [email or web address], [address], [place], [address], 08/04/2023 22:09:07 US, transva ginal 2023 024 [email or web address] [facility], [address], [place], [address], 08/04/2023 22:09:07 Medication Orders metroni dazole 0.75 % (37.5 mg/5 gram) vaginal gel 2024 025 [id number], [address], [place], [place], [id number], 07/05/2024 10:14:57 Patient TargetsNo targets recorded. Patient InstructionsNo instructions recorded. Reason for Referral None Reported. Results Created Date Observation Date Name Description Value Unit Range Abnormal Flag Note LastModifiedBy Organization Detail LastModifiedTime 11/13/19 23 11/12/2022 IMAGE GUIDE D PAP, REFLE X HPV IF ASCUS ONLY image guided Pap, reflex HPV ASCUS only SEE RESULT S BELOW CASE REPOR T: Cytol ogy Gynec ologi kaushal Repor t Case: [id number] Autho franky mireles Provi mechelle: Neil Glez Colle cted: 11/12 1649 OFFICE ASST Order ing Locat ion: [place] [facility] Recei debo: 11/13 1129 First Scree n: Celeste Yang, CT Speci men: Scree dennis Pap - Image d, Cervi x STATE MENT OF ADEQU ACY: Satis facto ry for evalu ation Trans forma tion zone compo nent prese nt FINAL DIAGN OSIS: Negat jailyn for Intra epith elial Lesio n or Marv lazaro (NIL) . Shift in john sugge stive of bacte rial vagin osis. Elect shana escalante d by Celeste Yang, CT on 2022 at 12:55 PM ----- ----- ----- ----- ----- ----- ----- ----- ----- ----- ----- ----- ----- ----- ----- ----- ----- ---- COMME NT: This speci men was revie wed by a Cytot echno logis t and/o r Patho logis t (as indic ated in this repor t) after evalu ation using the Thinp rep Imagi ng Syste m. CLINI KAUSHAL INFOR MATIO N: Menst rual Statu s: LMP (if appli cable ): Clini kaushal Histo ry/Pr eviou s Pap: Type of Neopl martine (if appli cable ): Signi fican t Clini kaushal Findi ngs: Other Histo ry: Hormo nii (if appli cable ): PAP EDUCA KEISHA L NOTE: The Pap Test is a scree dennis test with an inher ent false negat jailyn rate. Liqui d-bas ed sampl ing may decre ase, but will not elimi juan a, false negat jailyn resul ts. A negat jailyn resul t does not precl ude the prese nce and/o r devel opmen t of disea se, since the prese nce of abnor mal cells in the sampl e depen ds on the locat ion of the lesio n and sampl ing techn ique. Esteban nued regul ar scree dennis is the best metho d of cance r preve ntion . If repor joss cytol ogic findi ng do not corre late with physi kaushal and/o r histo rical findi ngs, furth er inves tigat ion is recom staci d, as clini luz warrshin nted. Not Available [facility] (Lab) [address] [facility], [place], [address], 11/14/2022 13:59:02 11/13/19 23 11/12/2022 TRICH OMONA S VAGIN DESI (RRNA ) trichomonas vaginalis ribosomal RNA (rrna) Negati ve negati ve Not Available [facility] (Lab) [address] [facility], [place], [address], 11/14/2022 13:59:02 11/13/19 23 11/12/2022 CT/GC (TAYLRO) , THINP REP VIAL chlamydia trachomatis, PCR Negati ve negati ve Not Available [facility] (Lab) [address] [facility], [place], [address], 11/14/2022 13:59:03 11/13/19 23 11/12/2022 CT/GC (TAYLOR) , THINP REP VIAL neisseria gonorrhoeae, PCR Negati ve negati ve Not Available [facility] (Lab) [address] [facility], [place], [address], 11/14/2022 13:59:03 08/03/19 24 08/03/2023 VAGIN ITIS/ VAGIN OSIS, DNA PROBE monica sp. detection, direct probe Negati ve negati ve Not Available [facility] (Lab) [address] [facility], [place], [address], 08/04/2023 17:29:50 08/03/19 24 08/03/2023 VAGIN ITIS/ VAGIN OSIS, DNA PROBE gardnerella vag. detection, direct probe Positi ve negati ve abnormal Not Available [facility] (Lab) [address] [facility], [place], [address], 08/04/2023 17:29:50 08/03/19 24 08/03/2023 VAGIN ITIS/ VAGIN OSIS, DNA PROBE trichomonas vag. detection, direct probe Negati ve negati ve Not Available [facility] (Lab) [address] [facility], [place], [address], 08/04/2023 17:29:50 08/03/19 24 08/03/2023 CT/GC AND TRICH OMONA S VAGIN DESI (RRNA ), SWAB chlamydia trachomatis, PCR Negati ve negati ve Not Available [facility] (Lab) [address] [facility], [place], [address], 08/04/2023 17:29:50 08/03/19 24 08/03/2023 CT/GC AND TRICH OMONA S VAGIN DESI (RRNA ), SWAB neisseria gonorrhoeae, PCR Negati ve negati ve Not Available [facility] (Lab) [address] [facility], [place], [address], 08/04/2023 17:29:50 08/03/19 24 08/03/2023 CT/GC AND TRICH OMONA S VAGIN DESI (RRNA ), SWAB trichomonas vaginalis ribosomal RNA (rrna) Negati ve negati ve Not Available [facility] (Lab) [address] [facility], [place], [address], 08/04/2023 17:29:50 08/03/19 24 08/03/2023 pregn jcarlos test, urine HCG negati ve Not Available [facility] [address], [place], [address], 08/03/2023 10:30:58 07/06/19 25 07/05/2024 HIV 1/2 ANTIG EN/AN TIBOD Y, REFLE X CONFI RMATI ON HIV antigen/anti body Nonrea ctive nonrea ctive HIV-1 antig en and HIV-1 /HIV- 2 antib odies were not detec joss. No labor atory evide nce of HIV infec tion. Not Available [facility] (Lab) [address], [place], [address], 07/06/2024 13:32:33 07/06/19 25 07/05/2024 HEPAT ITIS B SURFA CE ANTIG EN hepatitis B surface antigen Non-re active non-re active This assay was perfo rmed using [employer] ratio n reage nts and test kits. Value s obtai sonal with other assay metho ds or kits canno t be used inter marinelli eably . Not Available [facility] (Lab) [address] [place], [address], 07/06/2024 13:32:34 07/06/19 25 07/05/2024 HEPAT ITIS C ANTIB JUANIS SCREE N, REFLE X TO CONFI RMATI ON hepatitis C antibody Non-re active non-re active Antib odies to HCV Not Detec joss, does not exclu de the possi bilit y of expos ure to HCV. Not Available [facility] (Lab) [address], [place], [address], 07/06/2024 13:32:35 07/06/19 25 07/05/2024 RPR SCREE N, REFLE X TITER /CONF IRMAT ION RPR qualitative Nonrea ctive nonrea ctive Not Available [facility] (Lab) [address] [facility], [place], [address], 07/06/2024 13:32:35 07/06/19 25 07/05/2024 HEPAT ITIS B CORE, IGM hepatitis B core IgM antibody Non-re active non-re active IgM anti- HBc not detec joss. Does not exclu de the possi bilit y of expos ure to or infec tion with HBV. Test Perfo rmed by: Emigdio michel rn [address] [address] Not Available [facility] (Lab) [address] [facility], [place], [address], 07/06/2024 13:32:36 07/06/19 25 07/05/2024 WOMEN 'S HEALT H SWAB PLUS, FLIP bacterial vaginosis (bv), tma Positi ve negati ve abnormal Not Available [facility] (Lab) [address] [facility], [place], [address], 07/06/2024 15:19:17 07/06/19 25 07/05/2024 WOMEN 'S HEALT H SWAB PLUS, FLIP monica species, tma Positi ve negati ve abnormal Not Available [facility] (Lab) [address] [place], [address], 07/06/2024 15:19:17 07/06/19 25 07/05/2024 WOMEN 'S HEALT H SWAB PLUS, FLIP monica glabrata, tma Negati ve negati ve Not Available [facility] (Lab) [address] [place], [address], 07/06/2024 15:19:17 07/06/19 25 07/05/2024 WOMEN 'S HEALT H SWAB PLUS, FLIP trichomonas vaginalis, tma Negati ve negati ve Not Available [facility] (Lab) [address] [place], [address], 07/06/2024 15:19:17 07/06/19 25 07/05/2024 WOMEN 'S HEALT H SWAB PLUS, FLIP chlamydia trachomatis, PCR Negati ve negati ve Not Available [facility] (Lab) [address] [place], [address], 07/06/2024 15:19:17 07/06/19 25 07/05/2024 WOMEN 'S HEALT H SWAB PLUS, FLIP neisseria gonorrhoeae, PCR Negati ve negati ve Bacte rial vagin osis detec ts the follo wing bacte myra assoc iated with bacte rial vagin osis (BV): Lacto bacil renu (L. gasse ri, L. crisp atus and L. jense airam), Gardn erell a vagin desi, and Atopo bium vagin ae. A singl e quali tativ e resul t is repor joss base on instr ument softw are to deter mine BV posit jailyn or negat jailny statu s. The Elvie da speci es group tests for C. albic ans, C. tropi calis , C. parap adamaris is, C. dubli niens is. Testi ng is perfo rmed using the Trans cript ion [employer] joss Ampli ficat ion metho d. Tests for Elvie da glabr jacqueline, Trich omona s vagin desi, Chlam ydia trach omati s, and Neiss eria gonor rhoea e are also inclu ded in this panel . Not Available [facility] (Lab) [address] [facility], [place], [address], 07/06/2024 15:19:17 07/06/19 25 07/05/2024 pregn jcarlos test, urine HCG negati ve Not Available [facility] [address], [place], [address], 07/05/2024 10:20:07 07/26/19 25 07/25/2024 BHCG, QUANT ITATI VE B-HCG 1712.0 mIU/m L 0.0-4. 9 high This assay was perfo rmed using [employer] ratio n reage nts and test kits. Value s obtai sonal with other assay metho ds or kits canno t be used inter [facility] . Refer ence Range s: Non-p regna nt, preme nopau addie women : 0.0-4 .9 mIU/m L Postm enopa usal women : 0.0-7 .0 mIU/m L Niecy l Pregn jcarlos: Gesta keisha l Age bHCG Conc. - mIU/m L 3 Weeks 5.8 - 71.7 4 Weeks 9.5 - 750 5 Weeks 217-7 138 6 Weeks 158 - 31,79 5 7 Weeks 3,697 - 162,5 63 8 Weeks 32,06 5 - 149,5 71 9 Weeks 63,80 3 - 151,4 10 10 Weeks 46,50 9 - 186,9 77 12 Weeks 27,83 2 - 210,6 12 14 Weeks 13,95 0 - 62,53 0 15 Weeks 12,03 9 - 70,97 1 16 Weeks 9,040 - 56,45 1 17 Weeks 8,175 - 55,86 8 18 Weeks 8,099 - 58,17 6 Not Available [facility] (Lab) [address] [facility], [place], [address], 07/26/2024 03:52:54 07/28/19 25 07/27/2024 BHCG, QUANT ITATI VE B-HCG 2924.0 mIU/m L 0.0-4. 9 high This assay was perfo rmed using [employer] n reage nts and test kits. Value s obtai sonal with other assay metho ds or kits canno t be used [facility] . Refer ence Range s: Non-p regna nt, preme nopau addie women : 0.0-4 .9 mIU/m L Postm enopa usal women : 0.0-7 .0 mIU/m L Niecy l Pregn jcarlos: Gesta keisha l Age bHCG Conc. - mIU/m L 3 Weeks 5.8 - 71.7 4 Weeks 9.5 - 750 5 Weeks 217-7 138 6 Weeks 158 - 31,79 5 7 Weeks 3,697 - 162,5 63 8 Weeks 32,06 5 - 149,5 71 9 Weeks 63,80 3 - 151,4 10 10 Weeks 46,50 9 - 186,9 77 12 Weeks 27,83 2 - 210,6 12 14 Weeks 13,95 0 - 62,53 0 15 Weeks 12,03 9 - 70,97 1 16 Weeks 9,040 - 56,45 1 17 Weeks 8,175 - 55,86 8 18 Weeks 8,099 - 58,17 6 Not Available [facility] (Lab) [address], [place], [address], 07/28/2024 06:03:18 08/04/19 24 08/04/2023 US, pelvi s No observ ation record ed. [facility] [address], [place], [address], 08/04/2023 17:42:48 08/04/19 24 08/04/2023 US, trans vagin al No observ ation record ed. [facility] [address], [place], [address], 08/04/2023 17:42:59 08/04/19 24 08/04/2023 US, pelvi s No observ ation record ed. [facility] [address], [place], [address], 08/05/2023 10:46:29 08/03/19 25 08/02/2024 US, obste tric, trans vagin al No observ ation record ed. [email or web address] [address], [place], [address], 08/02/2024 14:12:42 08/03/19 25 08/02/2024 US, obste tric, follo w-up No observ ation record ed. [email or web address], [place], [address], 08/02/2024 23:20:24 Result Notes None recorded. Problems Name Problem SNOMED Code Status Onset Date Resolution Date Notes Provider Name and Address Organization Details Recorded Time Pregnanc y 43750884 Completed 202108/15/2022 Mora Aparicio [facility] 3 15:20:54 Asthma in pregnanc y 08609485769 103 Completed Mora Alessandra [facility] 3 15:20:50 Placenta l abnormal ity [id number] Completed slow blood flow at the surface, MFM and [facility] 3 15:20:50 Small for gestatio nal age fetus [id number] Completed 2022 6%. 2x/wk NST's, Wk[facility] 3 15:20:50 Problem Notes None recorded. Procedures Surgical History Date Name Laterality Status Provider Name and Address Organization Details Recorded Time 3 Date of Last Pap Smear completed Jocy Kidd [facility] 08/03/2023 09:32:06 9 biopsy of esophagus completed Marcelle Shields [facility] 11/04/2021 17:23:53 Imaging Results Imaging Date Name Status LastModified by Organization Details LastModified Time 08/04/2023 US, pelvis completed gorge Duong [address], [place], [address], 08/04/2023 17:42:48 08/04/2023 US, transvaginal completed gorge iniguez [address], [place], [address], 08/04/2023 17:42:59 08/04/2023 US, pelvis completed [facility] [address], [place], [address], 08/05/2023 10:46:29 08/02/2024 US, obstetric, transvaginal completed [email or web address] [address], [place], [address], 08/02/2024 14:12:42 08/02/2024 US, obstetric, follow-up completed [address], [place], [address], 08/02/2024 23:20:24 Procedure Notes None recorded. Medical Equipment None Reported. Allergies Allergen ID Allergen Name Allergen Category Reaction Reaction Severity Criticality Documentation Date Start Date Code Code System Note Provider Name and Address Organization Details Recorded Time 25513 lactose food,medi cation Not available Not available Not available 10/30/2021 6211 RxNorm Marcelle Shields [facility] 2 14:36:13 17151 melon extract food Not available Not available Not available 11/26/2021 00610 10 RxNorm Iveth Fletcher [facility] 2 11:40:09 64915 POLLEN EXTRACTS environme nt,medica tion Not available Not available Not available 11/26/2021 39874 6 RxNorm Iveth Fletcher [facility] 2 11:40:17 Medications Name Sig Start Date Stop Date Status Note LastModified by Organization Details LastModified Time cyclobenzap rine 10 mg tablet 10/30 completed Not Available Not Available Not Available amoxicillin 500 mg capsule TAKE 1 CAPSULE BY MOUTH EVERY 12 HOURS FOR 10 DAYS 10/30 completed Not Available Not Available Not Available doxycycline hyclate 100 mg capsule TAKE 1 CAPSULE BY MOUTH EVERY 12 HOURS FOR 7 DAYS 07/05 completed Not Available Not Available Not Available cetirizine 10 mg tablet TAKE 1 TABLET BY MOUTH EVERY DAY IN THE MORNING active Not Available Not Available No t Available fluconazole 150 mg tablet TAKE 1 TABLET BY MOUTH NOW. REPEAT IN 72 HOURS NEEDED active Not Available Not Available No t Available metronidazo le 0.75 % (37.5 mg/5 gram) vaginal gel INSERT 1 APPLICATO RFUL VAGINALLY EVERY DAY AT BEDTIME FOR 5 DAYS active Not Available Not Available No t Available Monistat 7 2 % vaginal cream Insert 1 applicato rful every day by vaginal route. 11/12 completed Not Available Not Available Not Available prednisone 20 mg tablet TAKE 2 TABLETS BY MOUTH EVERY DAY 10/30 completed Not Available Not Available Not Available metronidazo le 500 mg tablet Take 1 tablet twice a day by oral route as directed for 7 days. 2024 active Not Available Not Available Not Avai lable pantoprazol e 20 mg tablet,leann yed release TAKE 1 TABLET BY MOUTH EVERY DAY IN THE MORNING FOR STOMACH ACID OR REFLUX active Not Available Not Available No t Available amoxicillin 400 mg-potassiu m clavulanate 57 mg/5 mL oral suspension TAKE 11 ML BY MOUTH TWICE DAILY FOR 7 DAYS. DISCARD REMAINDER 07/05 completed Not Available Not Available Not Available amoxicillin 875 mg tablet TAKE 1 TABLET BY MOUTH EVERY 12 HOURS FOR 10 DAYS 10/30 completed Not Available Not Available Not Available benzonatate 100 mg capsule TAKE 1 CAPSULE BY MOUTH EVERY 8 HOURS NEEDED 08/02 completed Not Available Not Available Not Available ibuprofen 600 mg tablet TAKE 1 TABLET BY MOUTH EVERY 6 HOURS NEEDED 11/12 completed Not Available Not Available Not Available albuterol sulfate HFA 90 mcg/actuati on aerosol inhaler INHALE 2 PUFFS BY MOUTH EVERY 4 TO 6 HOURS NEEDED active Not Available Not Available No t Available fluticasone propionate 50 mcg/actuati on nasal spray,suspe nsion SHAKE LIQUID AND USE 1 SPRAY IN EACH NOSTRIL EVERY DAY DIRECTED active Not Available Not Available No t Available azithromyci n 500 mg tablet TAKE 2 TABLETS BY MOUTH 1 TIME 07/05 completed Not Available Not Available Not Available active Not Available Not Avai lable Not Available Vitamin 11/12 completed Not Available Not Available Not Available Vitals Date Recorded Body height Body mass index (BMI) Body weight Provider Name and Address Organization Details Last Updated DateTime 11/12/2022 159.39 cm 17.5 kg/m2 67751.05 g Cleopatra Stone [facility] 11/12/2022 15:41:15 Date Recorded Systolic blood pressure Diastolic blood pressure Provider Name and Address Organization Details Last Updated DateTime 11/12/2022 122 mm[Hg] 74 mm[Hg] Ana Jiménez, [facility] [address], [place], [address], [facility] 11/12/2022 16:05:46 Date Recorded Body height Body mass index (BMI) Body weight Systolic blood pressure Diastolic blood pressure Provider Name and Address Organization Details Last Updated DateTime 08/03/2023 159.39 cm 17.7 kg/m2 24691.64 g 132 mm[Hg] 82 mm[Hg] Jocy Zengman [facility] 4 10:10:53 Date Recorded Body height Body mass index (BMI) Body weight Systolic blood pressure Diastolic blood pressure Provider Name and Address Organization Details Last Updated DateTime 07/05/2024 159.39 cm 18.2 kg/m2 99413.42 g 121 mm[Hg] 76 mm[Hg] Fidelina Benavides [facility] 5 09:47:11 Social History Question Answer Notes LastModified by Organizat ion Details LastModified Time Tobacco Smoking Status Former Smoker Talia Gar carlos, [facility] 05/15/2022 10:50:33 Do You Have An Advance Directive? No [email or web address] Information not available 10/30/2021 What Is Your Level Of Alcohol Consumption? None [email or web address] Information not available 10/30/2021 If You Are , What Was Your Level Of Alcohol Consumption Prior To ? Occasional Information not available 05/15/2022 How Many Years Have You Consumed Alcohol? 0 Information not available 05/08/2022 Are You Blind Or Do You Have Difficulty Seeing? No [email or web address] Information not available 10/30/2021 What Is Your Level Of Caffeine Consumption? Moderate Information not available 10/30/2021 How Much Tobacco Do You Chew? None [email or web address] Information not available 10/30/2021 In The 14 Days Before Symptom Onset, Have You Had Close Contact With A Laboratory-confir med COVID-19 While That Case Was Ill? No Information not available 10/30/2021 In The 14 Days Before Symptom Onset, Have You Had Close Contact With A Person Who Is Under Investigation For COVID-19 While That Person Was Ill? No [email or web address] Information not available 10/30/2021 Have You Been To An Area Known To Be High Risk For COVID-19? No [email or web address] Information not available 10/30/2021 Are You Deaf Or Do You Have Serious Difficulty Hearing? No [email or web address] Information not available 10/30/2021 What Type Of Diet Are You Following? REGULAR [email or web address] Information not available 10/30/2021 What Is The Highest Grade Or Level Of School You Have Completed Or The Highest Degree You Have Received? 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 Yes [email or web address] Information not available 10/30/2021 Do You Use Protection During Sex? No [email or web address] Information not available 10/30/2021 Do You Use Your Seat Belt Or Car Seat Routinely? Yes [email or web address] Information not available 10/30/2021 Do You Have Smoke And Carbon Monoxide Detectors In Your Home? Yes [email or web address] Information not available 10/30/2021 At What Age Did You Start Smoking Tobacco? 13 Information not available 11/26/2021 How Much Tobacco Do You Smoke? 1 PPW Information not available 11/26/2021 Do You Feel Stressed (tense, Restless, Nervous, Or Anxious, Or Unable To Sleep At Night)? [id number] [email or web address] Information not available 10/30/2021 Do You Use Any Illicit Or Recreational Drugs? Yes [email or web address] Information not available 10/30/2021 Do You Use Sunscreen Routinely? No [email or web address] Information not available 10/30/2021 Has Tobacco Cessation Counseling Been Provided? No [email or web address] Information not available 05/15/2022 How Many Years Have You Smoked Tobacco? 8 [email or web address] Information not available 10/30/2021 Have You Used IV Drugs? No [email or web address] Information not available 10/30/2021 Do You Or Have You Ever Used Any Other Forms Of Tobacco Or Nicotine? No [email or web address] Information not available 05/15/2022 Sex: Unknown Functional Status Question Answer Note LastModified by Organizat ion Details LastModified Time Do you have difficulty walking or climbing stairs? No [email or web address] Information not available 05/15/2022 Are you able to walk? YESWOREST Information not available 10/30/2021 Are you able to care for yourself? Yes [email or web address] Information not available 05/15/2022 Do you have difficulty dressing or bathing? No [email or web address] Information not available 05/15/2022 What is your exercise level? Occasional [email or web address] Information not available 10/30/2021 Mental Status None recorded. Family History Relationship Description Onset Age of this Age Resolved Age Notes LastModified by Organization Details LastModified Time Unspecified Relation Family history unknown [email or web address] Not available 10/30 14:35:57 Medical History Condition Response Allergies (Food, seasonal, environmental ) Y Other N Breast Cancer N Drug/Latex Allergies/Reactions Y Blood Transfusion N Dermatologic Disorders N Lung Disease N Defects or Inherited Disease N Breast Problem N Gestational Diabetes N Hematologic disorders N Anesthesia Complications N History of STI N Deep Vein Thrombosis N Polycystic ovary syndrome N Anxiety Disorder N Autoimmune disease N Arthritis N Infertility N Polyps N Acid Reflux (GERD) Y History of abnormal pap N Cancer N Stroke N Varicosities N Neurologic/Epilepsy N Endometriosis N High Cholesterol N Headaches N Fibromyalgia N Kidney Disease N Heart Problems N Kidney or Bladder Problems N Thyroid Problems N GI Problems Y Eating Disorder N Anemia N Art (IVF or FET) N Psychiatric Illness N Ovarian Cancer N Diabetes N Pulmonary (TB, Asthma) N Hepatitis/Liver Disease N No Past Medical History N Eczema Y Urinary Tract Infection N Abuse/Domestic Violence N Asthma Y Trauma/Violence N Depression/ depression N Heart Disease N Pre-Eclampsia N Hypertension N Osteoporosis N Thrombophilias N Gynecological History Statement/Question Response Date of Last Mammogram Date of LMP 06/23/2024 N Was last menstrual period normal N STIs/STDs N Date of Last Colonoscopy None Desired Control Method None Abnormal Pap N On BCP's at Conception? N HPV Vaccine N Duration of Flow (days) 3 Current Control Method None Are cycles usually normal Y Frequency of Cycle (Q days) 27 Most Recent Bone Density Sexually Active? Y Menses Monthly Y Date of DEXA bone scan Age of first menstrual cycle 12 Date of Last Pap Smear 11/12/2022 Sexual Problems? N LMP Definite N Obstetrics History GPAL:G 1 P 0 1 0 1 Type Value Premature 1 Living 1 Total 1 Past Encounters Encounter ID Performer Location Encounter Start Date Encounter Closed Date Diagnosis/Indication Diagnosis SNOMED-CT Code Diagnosis ICD10 Code Diagnosis Note [id number] [facility] [address],[place] [address] 10/30/2021 13:54:33 10/30/2021 15:09:33 [id number] [facility] [address],[place] [address] 10/30/2021 13:55:22 10/30/2021 15:12:03 Amenorrhea 96233055 N91.2 [id number] [facility] [address],[place] [address] 11/26/2021 10:29:55 11/26/2021 11:55:23 screening 821057978 Z36.82 [id number] Pepito Hampton MD [facility] [address],[place] [address] 11/26/2021 10:33:35 11/26/2021 11:54:57 Routine care 584916464 Z34.01 [id number] Pepito Hampton MD [facility] [address],[place] [address] 12/23/2021 10:39:12 12/23/2021 12:05:37 Routine care 580001979 Z34.01 [id number] [facility] [address],[place] [address] 01/23/2022 10:49:42 01/23/2022 12:44:22 screening for malformation 766571596 Z36.3 [id number] Pepito Hampton MD [facility] [address],[place] [address] 01/23/2022 10:50:16 01/23/2022 12:45:03 Routine care 597789385 Z34.01 [id number] Ning Rodriguez [facility] [address],[place] [address] 02/20/2022 10:58:39 02/20/2022 13:53:20 Low lying placenta 657451117 O44.42 Z36.2 Z3A.24 [id number] Pepito Hampton MD [facility] [address],[place] [address] 02/20/2022 10:59:24 02/20/2022 13:01:45 Routine care 702836548 Z34.01 [id number] [facility] [address],[place] [address] 03/17/2022 15:32:32 03/17/2022 16:23:18 condition affecting obstetrical care of mother 786028425 Z3A.28 [id number] Lakeisha Carrero MD [facility] [address],[place] [address] 03/17/2022 15:32:59 03/17/2022 17:06:47 Routine care 486401821 Z34.03 [id number] Josephine Lopez [facility] [address],[place] [address] 04/04/2022 09:43:30 04/04/2022 10:32:12 Routine care 649003001 Z34.93 [id number] [facility] [address],[place] [address] 04/24/2022 12:22:21 04/24/2022 14:58:59 Small for gestational age fetus 340641522 O36.5930 Z3A.33 [id number] Pepito Hampton MD [facility] [address],[place] [address] 05/02/2022 14:09:42 05/02/2022 15:18:32 Routine care 365074254 Z34.01 [id number] [facility] [address],[place] [address] 05/02/2022 15:07:03 05/02/2022 16:14:58 Placental abnormality 684937402 O43.93 [id number] [facility] [address],[place] [address] 05/08/2022 11:23:24 05/08/2022 12:00:25 Routine care 538378545 Z34.93 [id number] [facility] [address],[place] [address] 05/08/2022 11:23:46 05/08/2022 12:33:56 Small for gestational age fetus 134512053 O36.5930 Z3A.33 [id number] [facility] [address],[place] [address] 05/12/2022 10:56:26 05/12/2022 14:36:59 Placental abnormality 984727127 O43.93 [id number] [facility] [address],[place] [address] 05/15/2022 10:50:27 05/15/2022 12:13:26 Placental abnormality 285858765 O43.93 [id number] Ning Rodriguez [facility] [address],[place] [address] 05/15/2022 10:50:48 05/15/2022 12:13:53 Small for gestational age fetus 610958026 O36.5930 O43.90 Z3A.36 [id number] [facility] [address],[place] [address] 05/15/2022 10:51:03 05/15/2022 13:04:36 Routine care 745742641 Z34.93 Placental condition affecting management of mother 696219103 O43.93 [id number] Pepito Hampton MD [facility] [address] [address] 06/19/2022 16:17:01 06/19/2022 17:32:24 care 922757333 Z39.2 This patient is a 22-year-ol d 1 para 1001 at 4 weeks post from a vaginal . She is not breastfeed ing. She is not bleeding. She is doing well. Her baby is doing well. She has not had sex and she declines any control. We talked about follow-up for well-woman exam. She patient is doing very well and very content. [id number] [facility] [address],[place] [address] 11/12/2022 15:17:29 11/12/2022 16:13:07 Gynecologic examination 71934023 Z01.419 Take Calcium with Vitamin D 1200mg daily if not receiving in daily diet. It is strongly advised to have an annual flu shot and up can obtain at most pharmacies . If you have not had a TDap shot in the last 10 years you should obtain one as well. Discussed with patient & provided with informatio n regarding Gardisil vaccine to prevent the 4 strains for HPV that cause cervical cancer if under age 26. Encourage safe sexual practices, to use condoms and limit partners if not already in a monogamous relationsh ip. Do monthly self breast exams. Have mammogram yearly or every other year depending on family history. BRCA testing is now available for patients with strong genetic history of female cancer. If interested contact the office. Engage in daily exercise of low impact aerobic exercise 45-60 minutes 4-5 times weekly. Avoid tobacco and illicit drugs as well as using moderation with alcohol intake less than 1-2 8 oz beverages daily. This lifestyle behavior pattern will lead to less health conditions and longer life span. If BMI greater than 25 weight watchers or dietary consult advised. Patient received above instructio ns, and questions have been answered. If you have any questions please call or respond to this email. Patient was made aware of the patient portal and may obtain a paper copy of today's plan if desired. Pap sent STD Screen sent Genetic Screen discussed Colon Screen na Dexa Screen na Routine Labs PCP [id number] [facility] [address],[place] [address] 08/03/2023 10:07:37 08/03/2023 10:53:09 Pain in pelvis 92068953 R10.2 gc/ct/tric h testing sentvagini tis panel sentUA/cx sentpelvic u/s orderedRTC for u/s and f/u to discuss results Time spent in visit is a total of 30 mins with at least 50% of visit consisting of counseling and review of plan of care. Dyspareunia [id number] N94 .10 [id number] Carol Harkins [facility] [address],[place] [address] 08/04/2023 15:27:44 08/04/2023 16:22:36 Pain in pelvis 42556271 R10.[id number] [facility] [address],[place] [address] 07/05/2024 09:39:51 07/05/2024 10:24:01 Vaginitis 01381911 N76.0 vaginitis panel sentgc/ct/ trich testing sent per requestHIV /Hep B&C/Syphil is testing ordered per pt requestvul beckie care guidelines discussed and handout given (d/c use of scented soaps/prod ucts, cotton underwear only, etc)safe sexual practices discussedd iscussed TTC, continue daily PNVrx sent for BV, r/b/a reviewed Time spent in visit is a total of 25 mins with at least 50% of visit consisting of counseling and review of plan of care. Venereal d isease screening 568601532 Z11.3 Unprotecte d sexual intercourse 1629764 Z72.51 Sexually t ransmitted infectious disease 1250153 A64 Reproducti ve care management [id number] Z31.9 [id number] [facility] [address],[place] [address] 08/02/2024 12:11:05 08/02/2024 13:09:03 screening 709445782 Z36.87 Z3A.01 Health Concerns Section Related Observation LastModified by Organization Detai ls LastModified Time None Recorded Concern Status LastModified by Organization Details LastModified Time None Recorded Advance Directives Directive N: Payers Encounter Date Sequence Insurance Name Policy Number Policy Pool Covered Member ID Pool Member ID Guarantor Name 11/12/2022 1 [facility] (MEDICAID HMO) [id number] 08/03/2023 1 [facility] (MEDICAID HMO) [id number] 08/04/2023 1 [facility] (MEDICAID HMO) [id number] 07/05/2024 1 [facility] (MEDICAID HMO) [id number] 08/02/2024 1 [facility] (MEDICAID HMO) [id number] Notes Date Note Type Note Provider Name and Address Organization Details Recorded Time 3 text/html Annual GYNReported bypatient.History:no gynecologic complaints Menstrual cycle:Normal menses Urinary symptoms:No hematuria; No incontinence Vulva:No genital lesion Vagina:Normal vaginal discharge Breast:No breast pain; No breast lump; No nipple discharge Current Contraception:Satisfied with current contraception; Condoms Sexual complaints:No sexual complaints; No pain during intercourse; Normal libido Menopausal Symptoms:No menopausal symptoms; Normal vaginal lubrication Psychological symptoms:No depression; No anxiety; No PMDD Preventive measures:Encourage self breast examination; Encourage regular exercise; Encourage no tobacco use; Encourage regular mammograms starting age 40; Followed with yearly pap smears Ana Jiménez, [facility]- [address], [place], [address], [facility] 11/12/2022 16:07:49 4 text/html 23yo [id number] today for pain with IC/decreased libidopain with IC for the past few monthsbilateral cramping sensation, pain with deep penetrationtrouble having an orgasmcondoms for BCCurrently from partner, her partner may have other partnersnoticed d/c and odor a few weeks ago that has since resolvedneg n/v/fneg flu-like symptomsneg d/c, odors, itchingsome constipation at timespap UTD, 10/2022 - normal [address], [place], [address], [facility] 08/03/2023 10:49:37 5 text/html 24yopresents with c/o vaginal discharge, odors, irritationsymptoms present x 1 monthlast treated for BV 2 months ago via telehealth apptSA with steady male partner, TTC, taking daily PNVwould like STI testing today uses a scented soap neg pelvic painneg n/v/fneg flu-like symptoms [address], [place], [address], [facility] 07/05/2024 10:23:00 OBGyn Episode Ob Episode Information Episode Created Date Number of Fetuses Patient Bloodtype Patient rh Status Prepregnancy Weight lbs Domestic Partner Domestic Partner Phone Father Name Mobile Application Architect Status 11/27/19 22 1 A Positive 96 CLOSED Fetus Data First Name Last Name Admitted to NICU Weight (g) Sex Living Outcome Pediatric Complications Fetus ID Race Codes Race Delivery Type 2438.05 7 F true Prematur e [id number] Vaginal Delivery Problems Problem Notes Rubella Non-immune.growth 18 % at 28wMFM: 05/05 1030A u/s only - SGA & placenta hematoma. Rpt U/S 05/23/22 Problem Name Start Date End Date Resolution Snomed Code Not e Small for gestational age fetus 05/05/2022 [id number] 6%. 2x/wk NST's , Wkly BBP & Dopplers Asthma in [id number] 9103 Placental abnormality 12480549 5 slow blood flow at the surface, MFM and NST's for now. Hunter Calculation Initial Hunter Date Initial Exam Date Initial Exam Provider Initial Ultrasound Date Last Menstrual Period Date Ultra Sound Weeks Gestation 06/09/2022 11/26/2021 10/30/2021 09/02/2021 8 Eighteen To Twenty Week Hunter Update Ultra Sound Date Fundal Height At Umbil Quickening Date Ultra Sound Latest Weeks Gestation Final Hunter Confirmed By Final Hunter Confirmed Date Final Hunter Date Ultra Sound Latest Days Gestation 0 [email or web address] 11/26/2021 06/09/19 23 0 Pre-nicole Flowsheet Flowsheet Date 11/26/2021 Núñez Score Blood Edema Fundus Height Fundus Units Glucose Ketones Leukocytes Nitrite Labor Signs Protein Cervic Dilation Cervic Effacement Cervic Station 12 Type Weight in lbs Pre/Post Dialysis Refused Weight 105.030735687806 BP Diastolic BP Location Tested BP Systolic BP Type 77 R arm 121 sitting Fetus Heart Rate Present A 145 Fetus Movement Comments this patient is a 21-year-ol d 1 at 12 weeks gestation who presents for initial care. She has no complaints. She has an unremarkable medical, surgical, obstetric history. She is on vaccinated. She is given vaccine recommendations. I told her about care in great detail. We agreed to begin routine care. She is having genetic screening and a protein Flowsheet Date 12/23/2021 Núñez Score Blood Edema Fundus Height Fundus Units Glucose Ketones Leukocytes Nitrite Labor Signs Protein Cervic Dilation Cervic Effacement Cervic Station 16 Type Weight in lbs Pre/Post Dialysis Refused Weight 108.622166772659 BP Diastolic BP Location Tested BP Systolic BP Type 70 R arm 120 sitting Fetus Heart Rate Present A 145 Fetus Movement Comments no problems, continue routin e care Flowsheet Date 01/23/2022 Núñez Score Blood Edema Fundus Height Fundus Units Glucose Ketones Leukocytes Nitrite Labor Signs Protein Cervic Dilation Cervic Effacement Cervic Station Type Weight in lbs Pre/Post Dialysis Refused BP Diastolic BP Location Tested BP Systolic BP Type Fetus Heart Rate Present Fetus Movement Comments Flowsheet Date 01/23/2022 Núñez Score Blood Edema Fundus Height Fundus Units Glucose Ketones Leukocytes Nitrite Labor Signs Protein Cervic Dilation Cervic Effacement Cervic Station 20 Type Weight in lbs Pre/Post Dialysis Refused Weight 117.587333163153 BP Diastolic BP Location Tested BP Systolic BP Type 72 R arm 113 sitting Fetus Heart Rate Present A 145 Fetus Movement Comments no complaints, good mo vement, low-lying placenta, incomplete anatomy Flowsheet Date 02/20/2022 Núñez Score Blood Edema Fundus Height Fundus Units Glucose Ketones Leukocytes Nitrite Labor Signs Protein Cervic Dilation Cervic Effacement Cervic Station Type Weight in lbs Pre/Post Dialysis Refused BP Diastolic BP Location Tested BP Systolic BP Type Fetus Heart Rate Present Fetus Movement Comments Flowsheet Date 02/20/2022 Núñez Score Blood Edema Fundus Height Fundus Units Glucose Ketones Leukocytes Nitrite Labor Signs Protein Cervic Dilation Cervic Effacement Cervic Station 24 Type Weight in lbs Pre/Post Dialysis Refused Weight 119.821907528288 BP Diastolic BP Location Tested BP Systolic BP Type 64 R arm 109 sitting Fetus Heart Rate Present A 145 Fetus Movement Comments to repeat ultrasound for lisbet wth, some low head measurements. Occasional asthma exacerbation, albuterol p.r.n., to repeat growth in 4 weeks Flowsheet Date 03/17/2022 Núñez Score Blood Edema Fundus Height Fundus Units Glucose Ketones Leukocytes Nitrite Labor Signs Protein Cervic Dilation Cervic Effacement Cervic Station Type Weight in lbs Pre/Post Dialysis Refused BP Diastolic BP Location Tested BP Systolic BP Type Fetus Heart Rate Present Fetus Movement Comments Flowsheet Date 03/17/2022 Núñez Score Blood Edema Fundus Height Fundus Units Glucose Ketones Leukocytes Nitrite Labor Signs Protein Cervic Dilation Cervic Effacement Cervic Station neg trace 25 none trace Type Weight in lbs Pre/Post Dialysis Refused Weight 122.966500131007 BP Diastolic BP Location Tested BP Systolic BP Type 79 121 Fetus Heart Rate Present A 130 Fetus Movement A Yes Comments Doing well. No concerns. Dis cussed and encouraged flu and Tdap. US today 18%, will continue to follow growth. GCT today. Flowsheet Date 04/04/2022 Núñez Score Blood Edema Fundus Height Fundus Units Glucose Ketones Leukocytes Nitrite Labor Signs Protein Cervic Dilation Cervic Effacement Cervic Station neg none 26 none trace Type Weight in lbs Pre/Post Dialysis Refused Weight 124.750712672780 BP Diastolic BP Location Tested BP Systolic BP Type 74 117 Fetus Heart Rate Present A 146 Present Fetus Movement A Yes Comments patient states that having n ausea. growth in 2 weeks, disc unisom or benadryl for sleep, precautions reviewed, may sign up for classes Flowsheet Date 04/24/2022 Núñez Score Blood Edema Fundus Height Fundus Units Glucose Ketones Leukocytes Nitrite Labor Signs Protein Cervic Dilation Cervic Effacement Cervic Station Type Weight in lbs Pre/Post Dialysis Refused BP Diastolic BP Location Tested BP Systolic BP Type Fetus Heart Rate Present Fetus Movement Comments Flowsheet Date 05/02/2022 Núñez Score Blood Edema Fundus Height Fundus Units Glucose Ketones Leukocytes Nitrite Labor Signs Protein Cervic Dilation Cervic Effacement Cervic Station 34 Type Weight in lbs Pre/Post Dialysis Refused Weight 129.139859822396 BP Diastolic BP Location Tested BP Systolic BP Type 71 R arm 120 sitting Fetus Heart Rate Present A 145 Fetus Movement A Yes Comments Discussed placental abnormal ity today, reduce blood flow the surface of the placenta, to see MFM in 3 days, NST today P Flowsheet Date 05/02/2022 Núñez Score Blood Edema Fundus Height Fundus Units Glucose Ketones Leukocytes Nitrite Labor Signs Protein Cervic Dilation Cervic Effacement Cervic Station Type Weight in lbs Pre/Post Dialysis Refused BP Diastolic BP Location Tested BP Systolic BP Type Fetus Heart Rate Present Fetus Movement Comments Flowsheet Date 05/08/2022 Núñez Score Blood Edema Fundus Height Fundus Units Glucose Ketones Leukocytes Nitrite Labor Signs Protein Cervic Dilation Cervic Effacement Cervic Station Type Weight in lbs Pre/Post Dialysis Refused BP Diastolic BP Location Tested BP Systolic BP Type Fetus Heart Rate Present Fetus Movement Comments Flowsheet Date 05/08/2022 Núñez Score Blood Edema Fundus Height Fundus Units Glucose Ketones Leukocytes Nitrite Labor Signs Protein Cervic Dilation Cervic Effacement Cervic Station neg none none trace Type Weight in lbs Pre/Post Dialysis Refused Weight 129.486191718363 BP Diastolic BP Location Tested BP Systolic BP Type 82 124 Fetus Heart Rate Present Fetus Movement A Yes Comments Doing well. Does have vagina l itching with a white/yellow discharge. Swab collected. Can try monistat 3 day while waiting for results. No contractions. Labor precautions discussed. MFM follow up visit scheduled. Flowsheet Date 05/12/2022 Núñez Score Blood Edema Fundus Height Fundus Units Glucose Ketones Leukocytes Nitrite Labor Signs Protein Cervic Dilation Cervic Effacement Cervic Station Type Weight in lbs Pre/Post Dialysis Refused BP Diastolic BP Location Tested BP Systolic BP Type 83 126 Fetus Heart Rate Present Fetus Movement Comments Flowsheet Date 05/15/2022 Núñez Score Blood Edema Fundus Height Fundus Units Glucose Ketones Leukocytes Nitrite Labor Signs Protein Cervic Dilation Cervic Effacement Cervic Station Type Weight in lbs Pre/Post Dialysis Refused BP Diastolic BP Location Tested BP Systolic BP Type Fetus Heart Rate Present Fetus Movement Comments Flowsheet Date 05/15/2022 Núñez Score Blood Edema Fundus Height Fundus Units Glucose Ketones Leukocytes Nitrite Labor Signs Protein Cervic Dilation Cervic Effacement Cervic Station Type Weight in lbs Pre/Post Dialysis Refused BP Diastolic BP Location Tested BP Systolic BP Type Fetus Heart Rate Present Fetus Movement Comments Flowsheet Date 05/15/2022 Núñez Score Blood Edema Fundus Height Fundus Units Glucose Ketones Leukocytes Nitrite Labor Signs Protein Cervic Dilation Cervic Effacement Cervic Station neg none 35 none trace Type Weight in lbs Pre/Post Dialysis Refused Weight 128.628842800711 BP Diastolic BP Location Tested BP Systolic BP Type 84 128 Fetus Heart Rate Present A 140 Fetus Movement A Yes Comments Doing well. Vaginal symptoms resolved. Pt did have irritability/contractions on the monitor today. Possible variables but not tracing great. Ultrasound did show an increase in the fluid collection. BPP8/8 and normal dopplers. Call to [facility] by ob nurse. Awaiting call back. Pt sent to [facility] for monitoring.Spoke with [facility] and regardless of the fluid collection, if any questionable fhr pattern, she would recommend delivery. Flowsheet Date 06/19/2022 Núñez Score Blood Edema Fundus Height Fundus Units Glucose Ketones Leukocytes Nitrite Labor Signs Protein Cervic Dilation Cervic Effacement Cervic Station Type Weight in lbs Pre/Post Dialysis Refused Weight 114.700937230140 BP Diastolic BP Location Tested BP Systolic BP Type 67 R arm 117 sitting Fetus Heart Rate Present Fetus Movement Comments Menstrual History Last Menstrual Date Menses Monthly On Bcp Conception Prior Menses Frequency Hcg Plus Date Menarche Onset Age 0509/02/2021 Genetic Screening And Infection History Question Response Note Mental Retardation/Autism false Patient's Age Will Be 35 Years Or Older At Estim ated Date of Delivery false Thalassemia (Salvadorean, Setswana, Mediterranean, Or Background): MCV < 80 false Neural Tube Defect (Meningomyelocele, Spina Bifi da, Or Anencephaly) false Congenital Heart Defect false Down Syndrome false Sreekanth-Sachs (eg, Orthodox, Cajun, Slovak-Edwards) f alse Erendira Disease false Sickle Cell Disease Or Trait () false Hemophilia Or Other Blood Disorders false Muscular Dystrophy false Cystic Fibrosis false [place]'s Chorea false Intellectual Disability/Autism false If Yes, Was Person Tested For Fragile X? false Other Inherited Genetic Or Chromosomal Disorder false Maternal Metabolic Disorder (eg, Type 1 Diabetes , PKU) false Patient Or Baby's Father Had A Child With Defects Not Listed Above false Recurrent Loss, Or A Stillbirth false Medications (including Suppl ements, Vitamins, Herbs, OTC Drugs), Illicit/Recreational Drugs, Alcohol false If Yes, Agent(s) And Strength/Dosage false Any Other Genetic History false Live With Someone With TB Or Exposed To TB false Patient Or Partner Has History Of Genital Herpes false Rash Or Viral Illness Since Last Menstrual Perio d false History Of STD, Gonorrhea, Chlamydia, HPV, Syphi lis false Other Infection History false History of HIV false History of Hepatitis false Prior GBS-infected child false Hemoglobinopathy Or Carrier false Other Structural Defect false Recent Travel History Outside of Country false Delivery Information Delivery Date Delivery Type Labor Anesthesia Weeks Gestation Incision Type Labor Labor Length Hrs Delivered By Post Complications Tubal Sterilization Discharge Date Comments 3 Induce d Regional-Ep idural 36.3 false Pepito Hampton MD GBS+, SGA, placenta hematoma, slow blood flow on dopplers Discharge Information Feeding Method Contraceptive Method Maternal HG B and HCT Levels
--- OUTSIDE RECORDS SUMMARY | 2024-08-13 11:13 | XMS_ITS | Referral Summary ---
Author Organization [facility] [address] [facility] Address [address] [place] [address] Care Team Providers Care Keymodule Assembly Supervisor Name Role Phone Alondra Montalvo Primary Care Provider [phone] Allergies No known active allergies Medications pantoprazole DR (PROTONIX) 20 mg EC tablet Take 1 tablet (20 mg total) by mouth daily Active cetirizine (ZyrTEC) 10 mg chewable tablet Take 1 tablet (10 mg total) by mouth daily Active albuterol HFA (PROVENTIL HFA,VENTOLIN HFA,PROAIR HFA) 90 mcg/actuation inhaler Inhale 2 puffs every 4 (four) hours as needed for shortness of breath Active Social History Tobacco Use Types Packs/Day [...] on file Legal Sex Female 2:35 AM HEAD PASTRY CHEF Gender Identity Not on file Sexual Orientation Not on file Last Filed Vital Signs Vital Sign Reading Time Taken Comments Blood Pressure 135/75 02/28/2024 9:41 AM HEAD PASTRY CHEF Pulse 77 02/28/2024 9:41 AM HEAD PASTRY CHEF Temperature 36.5 C (97.7 F) 02/28/2024 9:41 AM HEAD PASTRY CHEF Respiratory Rate 17 02/28/2024 9:41 AM HEAD PASTRY CHEF Oxygen Saturation 95% 02/28/2024 9:41 AM HEAD PASTRY CHEF Inhaled Oxygen Concentration - - Weight 45.8 kg (101 lb) 02/28/2024 9:41 AM HEAD PASTRY CHEF Height 160 cm (5' 3 ) 02/28/2024 9:41 AM HEAD PASTRY CHEF Body Mass Index 17.89 02/28/2024 9:41 AM HEAD PASTRY CHEF Plan of Treatment Not on file Insurance [facility] IDWA Care Teams Keymodule Assembly Supervisor Relationship Specialty Start Date End Date Alondra Montalvo PA [address] [place] [id number] PCP - General Physician Internal Medicine Physician 12/01/22
[2024-08-13 11:20] VITALS: BP 137/98; PULSE 86; RESP 19; TEMP 36.5; O2SAT 100
--- OUTSIDE RECORDS SUMMARY | 2024-08-13 11:34 | XMS_ITS | Referral Summary ---
Author Organization [facility] [address] [facility] Address [address] [place] [address] Care Team Providers Care Timber Management Technician Name Role Phone Alondra Montalvo Primary Care Provider Allergies No known active allergies Medications pantoprazole [...] on file Legal Sex Female 2:35 AM INFORMATION ASSURANCE OFFICER Gender Identity Not on file Sexual Orientation Not on file Last Filed Vital Signs Vital Sign Reading Time Taken Comments Blood Pressure 135/75 02/28/2024 9:41 AM INFORMATION ASSURANCE OFFICER Pulse 77 02/28/2024 9:41 AM INFORMATION ASSURANCE OFFICER Temperature 36.5 C (97.7 F) 02/28/2024 9:41 AM INFORMATION ASSURANCE OFFICER Respiratory Rate 17 02/28/2024 9:41 AM INFORMATION ASSURANCE OFFICER Oxygen Saturation 95% 02/28/2024 9:41 AM INFORMATION ASSURANCE OFFICER Inhaled Oxygen Concentration - - Weight 45.8 kg (101 lb) 02/28/2024 9:41 AM INFORMATION ASSURANCE OFFICER Height 160 cm (5' 3 ) 02/28/2024 9:41 AM INFORMATION ASSURANCE OFFICER Body Mass Index 17.89 02/28/2024 9:41 AM INFORMATION ASSURANCE OFFICER Plan of Treatment Not on file Insurance [facility] IDWV Care Teams Timber Management Technician Relationship Specialty Start Date End Date Alondra Montalvo PA [address] [place] [id number] PCP - General Physician Unit Aid 12/01/22
--- OUTSIDE RECORDS SUMMARY | 2024-08-13 11:34 | XMS_ITS | Clinical Summary ---
Author Organization [facility] Address [address] [facility] [place] [address] Care Team Providers Care Dip Unit Operator Name Role Phone Sukhi Yung MD Primary Care Provider [phone] Source Comments [facility],non-owned Affiliates and Associated Physician Practices is amultiple site organization consisting of ambulatory clinics and hospital sitesin [place], [place], [place] and [place]. This disclosure is being madepursuant to the Care Everywhere program and may not contain all information available regarding this patient. Last updated 18.[facility] Allergies Active Allergy Reactions Criticality Noted Date Comments Charentais Melon (Greenlandic Melon) Unknown 06/2022 Lactose Unknown 04/29/2022 Pollen [...] on file Legal Sex Female 5:44 AM MODELING AND SIMULATION ANALYST Gender Identity Not on file Sexual Orientation [...] Oxygen Concentration 100% 03/15/2016 3 :10 AM MODELING AND SIMULATION ANALYST Weight 43.5 kg (95 lb 14.4 oz) [...] patient's age to complete this topic Insurance [facility] [address] Care Teams Dip Unit Operator Relationship Specialty Start Date End Date Sukhi Yung MD [address] [place] [address] PCP - General 08/26/21
--- OUTSIDE RECORDS SUMMARY | 2024-08-13 11:34 | XMS_ITS | Clinical Summary ---
Author Organization [facility] [place] [id number] [facility] Address [address] [place] [address] Care Team Providers Care Meal Grinder Tender Name Role Phone Alondra Montalvo Primary Care Provider [phone] Allergies No known active allergies Medications pantoprazole [...] on file Legal Sex Female 2:35 AM ROUTER SETTER Gender Identity Not on file Sexual Orientation Not on file Obstetrics History Last Filed Vital Signs Vital Sign Reading Time Taken Comments Blood Pressure 135/75 02/28/2024 9:41 AM ROUTER SETTER Pulse 77 02/28/2024 9:41 AM ROUTER SETTER Temperature 36.5 C (97.7 F) 02/28/2024 9:41 AM ROUTER SETTER Respiratory Rate 17 02/28/2024 9:41 AM ROUTER SETTER Oxygen Saturation 95% 02/28/2024 9:41 AM ROUTER SETTER Inhaled Oxygen Concentration - - Weight 45.8 kg (101 lb) 02/28/2024 9:41 AM ROUTER SETTER Height 160 cm (5' 3 ) 02/28/2024 9:41 AM ROUTER SETTER Body Mass Index 17.89 02/28/2024 9:41 AM ROUTER SETTER Plan of Treatment Health Maintenance Due Date [...] HPV Vaccines Completed 01/23/2016, 06/2012, 12/28/2012 Insurance [facility] IDPA Care Teams Meal Grinder Tender Relationship Specialty Start Date End Date Alondra Montalvo PA [facility] [place] [address] PCP - General Physician Employment Evaluator/Case Manager 12/01/22
--- OUTSIDE RECORDS SUMMARY | 2024-08-13 11:34 | XMS_ITS | Clinical Summary ---
Author Organization [facility] Address [address] [place] [address] Care Team Providers Care Portfolio Director Name Role Phone None, Provider MD Primary [...] on file Legal Sex Female 3:23 PM HOUSING COUNSELOR Gender Identity Not on file Sexual Orientation Not on file Last Filed Vital Signs Vital Sign Reading Time Taken Comments Blood Pressure 117/72 04/05/2021 3:57 PM HOUSING COUNSELOR Pulse 90 04/05/2021 3:57 PM HOUSING COUNSELOR Temperature 36.6 C (97.8 F) 04/05/2021 3:57 PM HOUSING COUNSELOR Respiratory Rate 18 04/05/2021 3:57 PM HOUSING COUNSELOR Oxygen Saturation 100% 04/05/2021 3:57 PM HOUSING COUNSELOR Inhaled Oxygen Concentration - - Weight 46.3 kg (102 lb) 04/05/2021 3:57 PM HOUSING COUNSELOR Height 157.5 cm (5' 2 ) 04/05/2021 3:57 PM HOUSING COUNSELOR Body Mass Index 18.66 04/05/2021 3:57 PM HOUSING COUNSELOR Plan of Treatment Health Maintenance Due Date [...] Documents on File Type Date Recorded Patient Agency Legal Counsel Expl anation Legal Documents 04/18/2021 2:33 PM [employer] [id number] DOS 04/05/2021 Care Teams Portfolio Director Relationship Specialty Start Date End Date None, Provider, PCP - General 04/05/21
[2024-08-13 11:43] LABS: Basophils Absolute Auto 0.1 K/mm3 (0.0-0.1); Basophils Percent Auto 1.6 % (0.2-1.2); Eosinophils Absolute Auto 0.2 K/mm3 (0-0.3); Eosinophils Percent Auto 3.7 % (0-4.4); Hematocrit 35.3 % (37.0-47.0); Hemoglobin 11.1 g/dL (12.0-15.0); Immature Granulocyte Absolute 0.01 K/mm3 (0.00-0.031); Immature Granulocyte Percent A 0.2 % (0-0.5); Lymphocytes Absolute Auto 1.38 K/mm3 (0.9-3.2); Lymphocytes Percent Auto 31.9 % (18.3-44.2); Mean Corpuscular HGB Conc 31.4 g/dl (32-36); Mean Corpuscular Hemoglobin 25.7 pg (26-34); Mean Corpuscular Volume 81.7 fl (80-100); Mean Platelet Volume 10.7 fl (7.4-10.4); Monocytes Absolute Auto 0.4 K/mm3 (0.1-0.6); Monocytes Percent Auto 10.2 % (2.6-8.5); Neutrophils Absolute Auto 2.3 K/mm3 (1.3-6.7); Neutrophils Percent Auto 52.4 % (45.5-73.1); Platelet Count Result 252 k/mm3 (150-375); Red Blood Count 4.32 M/mm3 (4.2-5.4); Red Cell Distribution Width 17.5 % (11.5-14.5); White Blood Count 4.3 K/mm3 (4.5-10.0)
--- NOTE | 2024-08-13 11:47 | ED_ITS ---
HPI - General Adult General Chief complaint: MACHINE EDGE BANDER Stated complaint: 7 weeks preg-bleeding Time Seen by Provider: 08/13/24 11:25 History of Present Illness HPI narrative: 24-year-old female presents emergency department for evaluation for vaginal spotting that started yesterday and has progressed to vaginal bleeding. Patient states this is very minor vaginal bleeding but she was concerned. Patient is approximately 7 weeks has had follow-up with Dr. Hampton. Patient did have ultrasound at 6 weeks that did confirm intrauterine . Patient was started on Flagyl a few days ago for suspected BV. Patient denies any urinary symptoms. Patient denies any abdominal pain. Related Data Home Medications ?Medication ?Instructions ?Recorded ?Confirmed ?Last Taken ?Type albuterol sulfate 90 mcg/actuation 2 puff inhalation Q4H PRN 05/02/22 05/15/22 Unknown History aerosol inhaler Shortness Of Breath vit no.95-ferrous 1 tablet PO DAILY 05/02/22 05/15/22 05/15/22 History fumarate 28 mg-folic acid 800 mcg tablet () Allergies Allergy/AdvReac Type Severity Reaction Status Date / Time pollen extracts Allergy Itching Verified 08/13/24 11:21 Melons Allergy Swelling Uncoded 08/13/24 11:21 of Lip/Tongue/Throat Review of Systems 2 Review of Systems: All systems reviewed & are unremarkable except as noted in HPI and below PMFSH Past Medical History Medical History Esophagitis on biopsy Surgical History Surgical History No significant past surgical history Family History Family History (Updated 05/12/22 @ 12:40 by Bentley Webb RN) Father COPD (chronic obstructive pulmonary disease) Mother Hypertension Grandparent COPD (chronic obstructive pulmonary disease) Social History Social History Years smoked: 5 Smoking status: Current every day smoker Tobacco type: e-cigarettes/vaping Second hand tobacco smoke exposure: Yes Alcohol intake: never Substance use: current Substance use type: marijuana Last use: last month--04/17 Lack of Transportation: No Lack of Food: Never True Current Housing: I Have Housing Concerned About Future Housing: No Difficulty Paying Gas/Electric Bills: No Difficulty Paying for Meds: No Currently Unemployed: No Education: High School Diploma/GED Difficulty w/ Childcare or Family Care: No Living arrangements: with family Occupation/Education: unemployed Gender identity (if verbalized by the patient): Female Spiritual care concerns: No Exam 2 Narrative: APPEARANCE: Well appearing, no pain, no distress, well-nourished. HEAD: normocephalic, atraumatic. EYES: PERRLA/EOMI, conjunctivae clear. NOSE: Normal no drainage EARS:TMS clear with good light reflex. THROAT: Pharynx clear, no exudate. NECK: Supple. No adenopathy, no masses. RESPIRATORY: Airway patent, respirations nonlabored. Clear to auscultation bilaterally, no rales, rhonchi, wheezing. CARDIOVASCULAR: Regular rate and rhythm without murmurs rubs or gallops. ABDOMINAL: Soft, nontender, nondistended, normal bowel sounds MUSCULOSKELETAL: Moves all extremities. Strength/ROM intact, No edema, No calf tenderness. NEURO: Alert. Cranial nerves II through XII intact. Good gait. Good coordination SKIN: Warm, dry. Normal Color Course Vital Signs Vital signs: Vital Signs Temperature 97.7 F 08/13/24 11:20 Pulse Rate 86 08/13/24 11:20 Respiratory Rate 19 08/13/24 11:20 Blood Pressure 137/98 H 08/13/24 11:20 Pulse Oximetry 100 08/13/24 11:20 Temperature 97.7 F 08/13/24 11:20 Pulse Rate 78 08/13/24 13:45 Respiratory Rate 18 08/13/24 13:45 Blood Pressure 108/91 H 08/13/24 13:45 Pulse Oximetry 99 08/13/24 13:45 Medical Decision Making [facility] Narrative Medical decision making narrative: 24-year-old female who is approximately 7 weeks presents emergency department for evaluation for vaginal spotting. Patient is afebrile with no leukocytosis hemoglobin 11.1. Patient's INR is 1.1. Patient's blood type was A positive. Urine was negative for infection. Patient's beta hCG was 10,748. Patient does have a prior ultrasound confirming intrauterine . Patient does have follow-up scheduled with Dr. Hampton on Thursday. Patient was updated on results of her workup and was comfortable the plan for discharge and close follow-up. Differential Diagnosis Differential Diagnosis: UTI, ectopic , miscarriage Vital Signs Vital Signs: Vital Signs Temperature 97.7 F 08/13/24 11:20 Pulse Rate 86 08/13/24 11:20 Respiratory Rate 19 08/13/24 11:20 Blood Pressure 137/98 H 08/13/24 11:20 Pulse Oximetry 100 08/13/24 11:20 Temperature 97.7 F 08/13/24 11:20 Pulse Rate 78 08/13/24 13:45 Respiratory Rate 18 08/13/24 13:45 Blood Pressure 108/91 H 08/13/24 13:45 Pulse Oximetry 99 08/13/24 13:45 Lab Data Lab results reviewed: Yes I reviewed the patient's lab results. 08/13/24 11:38 08/13/24 11:38 Labs: Lab Results 08/13/24 08/13/24 Range/Units 11:38 12:45 WBC 4.3 L (4.5-10.0) K/mm3 RBC 4.32 (4.2-5.4) M/mm3 Hgb 11.1 L (12.0-15.0) g/dL Hct 35.3 L (37.0-47.0) % MCV 81.7 (80-100) fl MCH 25.7 L (26-34) pg MCHC 31.4 L (32-36) g/dl RDW 17.5 H (11.5-14.5) % Plt Count 252 (150-375) k/mm3 MPV 10.7 H (7.4-10.4) fl Immature Gran % (Auto) 0.2 (0-0.5) % Neut % (Auto) 52.4 (45.5-73.1) % Lymph % (Auto) 31.9 (18.3-44.2) % [place] % (Auto) 10.2 H (2.6-8.5) % Eos % (Auto) 3.7 (0-4.4) % Baso % (Auto) 1.6 H (0.2-1.2) % Lymph # (Auto) 1.38 (0.9-3.2) K/mm3 [place] # (Auto) 0.4 (0.1-0.6) K/mm3 Eos # (Auto) 0.2 (0-0.3) K/mm3 Baso # (Auto) 0.1 (0.0-0.1) K/mm3 Abs Immat Gran (auto) 0.01 (0.00-0.031) K/mm3 Absolute Neuts (auto) 2.3 (1.3-6.7) K/mm3 Absolute Nucleated RBC 0.000 (0.0-0.012) K/mm3 Nucleated RBC % 0.0 (0.0-0.2) % PT 14.1 (11.1-14.7) Seconds INR 1.1 APTT 28.2 (22.3-36.8) Seconds Sodium 139 (137-145) mmol/L Potassium 3.8 (3.4-5.0) mmol/L Chloride 105 (98-107) mmol/L Carbon Dioxide 24 (22-30) mmol/L Anion Gap 10 (4-12) mmol/L BUN 13 (7-17) mg/dL Creatinine 0.72 (0.7-1.0) mg/dL Estim Creat Clear Calc 84 ml/min Estimated GFR > 60 (59 - ) Glucose 90 (65-110) mg/dL Calcium 9.1 (8.4-10.2) mg/dL Total Bilirubin 1.4 H (0.2-1.3) mg/dL AST 29 (14-36) U/L ALT 21 (6-35) U/L Alkaline Phosphatase 54 (38-126) U/L Total Protein 8.0 (6.3-8.2) g/dL Albumin 4.9 (3.5-5.1) g/dL Beta HCG, Quant 51047.00 mIU/ML Urine Color Yellow (Yellow) Urine Appearance Clear (Clear) Urine pH 6.0 (5.0-9.0) Ur Specific [place] 1.007 (1.001-1.035) Urine Protein Negative (Negative) mg/dL Urine Glucose (UA) Negative (Negative) mg/dL Urine Ketones Negative (Negative) mg/dL Ur Blood (Man) 3+ H (Negative) Urine Nitrate Negative (Negative) Urine Bilirubin Negative (Negative) Urine Urobilinogen 0.2 (<2.0) mg/dL Leukocyte Esterase Rfl Trace H (Negative) BITA/UL Urine RBC 0-2 (0-2) /hpf Urine WBC 0-5 (0-3) /hpf Ur Squamous Epith Cells Occasional (Few) /hpf Urine Bacteria None seen /hpf Urine Casts 0-2 Blood Type A Positive Antibody Screen Negative Screen Not Reportable Baby's Blood Type Not Reportable Baby's SOCORRO Not Reportable Doses of RhIg Required 0 Discharge Plan Discharge Clinical Impression: Vaginal bleeding affecting early Patient Disposition: Home Condition: Stable Instructions: Antibiotic Form, Non-Threatening First Trimester Vaginal Bleed (ED) Additional Instructions: Drink plenty of fluids, follow a well-balanced diet. Tylenol for abdominal cramping. Avoid ibuprofen. Have close follow-up with OB Gyne as scheduled. If you have any worsening symptoms and please call or return to the emergency department. Patient Language: Bengali Prescriptions: No Action albuterol sulfate 90 mcg/actuation Hfa Aerosol Inhaler 2 puff INHALATION Q4H PRN (Reason: Shortness Of Breath) PNV cmb#95-ferrous fumarate-FA [] 28 mg iron- 800 mcg Tablet 1 tablet PO DAILY ibuprofen 600 mg Tablet 600 mg PO Q6H PRN (Reason: Cramping) Qty: 30 0RF Follow-up/Referrals: Katia,PREMA Cantu [Primary Care Provider] -
[2024-08-13 11:57] LABS: INR 1.1; Prothrombin Time 14.1 Seconds (11.1-14.7)
[2024-08-13 11:58] LABS: Alanine Aminotransferase 21 U/L (6-35); Albumin Level 4.9 g/dL (3.5-5.1); Alkaline Phosphatase 54 U/L (38-126); Anion Gap 10 mmol/L (4-12); Aspartate Amino Transferase 29 U/L (14-36); Bilirubin,Total 1.4 mg/dL (0.2-1.3); Blood Urea Nitrogen 13 mg/dL (7-17); Calcium 9.1 mg/dL (8.4-10.2); Carbon Dioxide 24 mmol/L (22-30); Chloride 105 mmol/L (98-107); Estimated CRCL calculation 84 ml/min; Estimated Glomerular Filt Rate > 60; Glucose 90 mg/dL (65-110); Partial Thromboplastin Time 28.2 Seconds (22.3-36.8); Potassium 3.8 mmol/L (3.4-5.0); Sodium 139 mmol/L (137-145)
[2024-08-13 12:54] LABS: Add Urine Microscopic? YES; Appearance Urine Clear (Clear); Bacteria Urine None Seen /hpf; Bilirubin Urine Negative (Negative); Blood Urine 3+ (Negative); Color Urine Yellow (Yellow); Glucose Urine UA Negative (Negative); Ketones Urine Negative (Negative); Leukocyte Esterase Ur Trace LEU/UL (Negative); Nitrate Urine Negative (Negative); Non Pathogenic Casts 0-2; Protein Urine Negative (Negative); RBC Urine 0-2 /hpf (0-2); Specific Grav Ur 1.007 (1.001-1.035); Squamous Epithelial Cell Urine Occasional /hpf (Few); Urobilinogen Urine 0.2 mg/dL (<2.0); WBC Urine 0-5 /hpf (0-3)
[2024-08-13 13:45] VITALS: BP 108/91; PULSE 78; RESP 18; O2SAT 99
== END 2024-08-13 13:48 | disposition home or self-care (01) ==
PROVIDERS: Emergency Provider Emergency Medicine; PCP Physician Assistant
DX: O20.9 Hemorrhage in early pregnancy, unspecified (principal); O99.331 Smoking (tobacco) complicating pregnancy, first trimester; F17.290 Nicotine dependence, other tobacco product, uncomplicated; Z3A.01 Less than 8 weeks gestation of pregnancy
CPT/HCPCS: 36415; 80053; 81001; 84702; 85025; 85461; 85610; 85730; 86850; 86900; 86901; 99283

== ENCOUNTER 2024-08-15 07:02 | Emergency (ER) | payer OTHER, SELFPAY ==
--- NOTE | ~2024-08-15 | US_ITS ---
Pelvic ultrasound. Clinical History: First trimester , vaginal bleeding Technique: Realtime transabdominal and transvaginal scanning of the pelvis was performed. Color flow Doppler and Doppler spectral analysis were performed. Findings: The uterus is anteverted. The endometrial stripe has a thickness of 13 mm. Possible early intrauterine gestational sac at the lower uterine segment, with average sac diameter of 8 mm. No visi ble pole or yolk sac. The right ovary measures 1.9 x 3.3 x 1.8 cm. No significant right ovarian or adnexal mass is seen. The left ovary measures 1.6 x 1.4 x 2.1 cm. No significant left ovarian or adnexal mass is seen. There is no evidence of free fluid in the cul de sac. Impression: Possible early intrauterine gestational sac at the lower uterine segment with average sac diameter 8 mm. No visible pole or yolk sac. Short-term follow-up ultrasound in 5-7 days is recommended to reassess. Reviewed, dictated and finalized at [facility]. Impression: Possible early intrauterine gestational sac at the lower uterine segment with a verage sac diameter 8 mm. No visible pole or yolk sac. Short-term follow- up ultrasound in 5-7 days is recommended to reassess.
--- OUTSIDE RECORDS SUMMARY | 2024-08-15 07:04 | XMS_ITS | Clinical Summary ---
Author Organization [facility] Address [address] [place] [address] Care Team Providers Care Oil Well Shooter Name Role Phone Sukhi Yung MD Primary Care Provider Source Comments [facility],non-owned Affiliates and Associated Physician Practices is amultiple site organization consisting of ambulatory clinics and hospital sitesin [place], [place], [place] and [place]. This disclosure is being madepursuant to the Care Everywhere program and may not contain all information available regarding this patient. Last updated 18.[facility] Allergies Active Allergy Reactions Criticality Noted Date Comments Charentais Melon (Ukrainian Melon) Unknown 06/2022 Lactose Unknown 04/29/2022 Pollen [...] on file Legal Sex Female 5:44 AM MEDICAL CERTIFICATION SPECIALIST Gender Identity Not on file Sexual Orientation [...] Oxygen Concentration 100% 03/15/2016 3 :10 AM MEDICAL CERTIFICATION SPECIALIST Weight 43.5 kg (95 lb 14.4 oz) [...] patient's age to complete this topic Insurance [facility] [place] [address] Care Teams Oil Well Shooter Relationship Specialty Start Date End Date Sukhi Yung MD [address] [place] [address] PCP - General 08/26/21
--- OUTSIDE RECORDS SUMMARY | 2024-08-15 07:04 | XMS_ITS | Referral Summary ---
Author Organization [facility] [address] [facility] Address [address] [place] [address] Care Team Providers Care Facility Manager Name Role Phone Alondra Montalvo Primary Care [...] on file Legal Sex Female 2:35 AM DEVELOPMENT INTERN Gender Identity Not on file Sexual Orientation Not on file Last Filed Vital Signs Vital Sign Reading Time Taken Comments Blood Pressure 135/75 02/28/2024 9:41 AM DEVELOPMENT INTERN Pulse 77 02/28/2024 9:41 AM DEVELOPMENT INTERN Temperature 36.5 C (97.7 F) 02/28/2024 9:41 AM DEVELOPMENT INTERN Respiratory Rate 17 02/28/2024 9:41 AM DEVELOPMENT INTERN Oxygen Saturation 95% 02/28/2024 9:41 AM DEVELOPMENT INTERN Inhaled Oxygen Concentration - - Weight 45.8 kg (101 lb) 02/28/2024 9:41 AM DEVELOPMENT INTERN Height 160 cm (5' 3 ) 02/28/2024 9:41 AM DEVELOPMENT INTERN Body Mass Index 17.89 02/28/2024 9:41 AM DEVELOPMENT INTERN Plan of Treatment Not on file Insurance [facility] IDID Care Teams Facility Manager Relationship Specialty Start Date End Date Alondra Montalvo PA [address] [place] [id number] PCP - General Physician Event Services Manager 12/01/22
--- OUTSIDE RECORDS SUMMARY | 2024-08-15 07:04 | XMS_ITS | Clinical Summary ---
Author Organization [place] [address] [facility] Address [address] [place] [address] Care Team Providers Care Mold Yard Worker Name Role Phone Alondra Montalvo Primary Care Provider [phone] Allergies No known active allergies Medications pantoprazole [...] on file Legal Sex Female 2:35 AM SOLDER MAKING LABORER Gender Identity Not on file Sexual Orientation Not on file Obstetrics History Last Filed Vital Signs Vital Sign Reading Time Taken Comments Blood Pressure 135/75 02/28/2024 9:41 AM SOLDER MAKING LABORER Pulse 77 02/28/2024 9:41 AM SOLDER MAKING LABORER Temperature 36.5 C (97.7 F) 02/28/2024 9:41 AM SOLDER MAKING LABORER Respiratory Rate 17 02/28/2024 9:41 AM SOLDER MAKING LABORER Oxygen Saturation 95% 02/28/2024 9:41 AM SOLDER MAKING LABORER Inhaled Oxygen Concentration - - Weight 45.8 kg (101 lb) 02/28/2024 9:41 AM SOLDER MAKING LABORER Height 160 cm (5' 3 ) 02/28/2024 9:41 AM SOLDER MAKING LABORER Body Mass Index 17.89 02/28/2024 9:41 AM SOLDER MAKING LABORER Plan of Treatment Health Maintenance Due Date [...] HPV Vaccines Completed 01/23/2016, 06/2012, 12/28/2012 Insurance [facility] IDPA Care Teams Mold Yard Worker Relationship Specialty Start Date End Date Alondra Montalvo PA Replaced by [facility] [place] [address] PCP - General Physician Stock Parts Inspector 12/01/22
--- OUTSIDE RECORDS SUMMARY | 2024-08-15 07:04 | XMS_ITS | Clinical Summary ---
Author Organization [facility] Address [address] [place] [address] Care Team Providers Care English As A Second Language Teacher Name Role Phone None, Provider MD Primary [...] on file Legal Sex Female 3:23 PM PROCESS SAFETY ENGINEER Gender Identity Not on file Sexual Orientation Not on file Last Filed Vital Signs Vital Sign Reading Time Taken Comments Blood Pressure 117/72 04/05/2021 3:57 PM PROCESS SAFETY ENGINEER Pulse 90 04/05/2021 3:57 PM PROCESS SAFETY ENGINEER Temperature 36.6 C (97.8 F) 04/05/2021 3:57 PM PROCESS SAFETY ENGINEER Respiratory Rate 18 04/05/2021 3:57 PM PROCESS SAFETY ENGINEER Oxygen Saturation 100% 04/05/2021 3:57 PM PROCESS SAFETY ENGINEER Inhaled Oxygen Concentration - - Weight 46.3 kg (102 lb) 04/05/2021 3:57 PM PROCESS SAFETY ENGINEER Height 157.5 cm (5' 2 ) 04/05/2021 3:57 PM PROCESS SAFETY ENGINEER Body Mass Index 18.66 04/05/2021 3:57 PM PROCESS SAFETY ENGINEER Plan of Treatment Health Maintenance Due Date Last Done Comments Cervical Cancer Screening Pap Smear (Age 21 to 29) Every 3 Years 2001 Cervical Cancer Screening 2001 Annual Physical 2004 Meningococcal B Vaccine (1 of 2 - Standard) 2017 Hepatitis C 2019 Pneumococcal Vaccine: Pediatrics (0 to 5 Years) and At-Risk Patients (6 to 49 Years) (1 of 2 - PCV) 2020 03/07/2004, 06/28/2002, 05/03/2002, Additional history exists DTaP, Tdap and Td Vaccines (7 - Td or Tdap) 12/28/2022 12/28/2012, 12/01/2006, 03/07/2004, Additional history exists COVID-19 Vaccine ( - 2023- season) 2023 Hepatitis B Vaccines [...] Documents on File Type Date Recorded Patient Window Shade Cutter And Mounter Expl anation Legal Documents 04/18/2021 2:33 PM [employer] [id number] DOS 04/05/2021 Care Teams English As A Second Language Teacher Relationship Specialty Start Date End Date None, Provider, PCP - General 04/05/21
--- OUTSIDE RECORDS SUMMARY | 2024-08-15 07:04 | XMS_ITS | Data Portability ---
Author Organization [facility] CECYLeslye Address [address] [place] [address] Care Team Providers Care Histopathologist Name Role Phone ALONDRA BURDICK Primary Care Provider Assessment No assessment recorded. Plan of Treatment Reminders Order Date Submit Date Provider Last Modified By Organization Details Last Modified Time Details Appointments None record ed. Lab HIV (1+O+2 ) Ab, serum 2018 019 Clariture [facility], [address], [address], [place], [address], 9 11:42:19 RPR (rapid plasma reagin ), serum 2018 019 NAJMA [facility], [address], [address], [place], [address], 9 06:16:21 pregna ncy test, urine 2018 019 leisa In-Office Order, Internal Use Only DO Not Attach Compendium DO Not Attach Compendium, Do Not Delete/merge, [id number] 9 15:09:47 urinal ysis, dipsti ck 2018 019 [email or web address] In-Office Order, Internal Use Only DO Not Attach Compendium DO Not Attach Compendium, Do Not Delete/merge, [id number] 9 15:09:47 bacter ial vagino sis + vagini tis panel, vagina l 2018 019 NAJMA [facility], [address], [address], [place], [address], 9 15:07:21 urinal ysis comple te, reflex cultur e 2015 016 NAJMA [facility], [address], [address], [place], [address], 6 06:05:51 Referral podiat rist referr al 2023 024 [email or web address] Bronson Verma DPM, [address] [facility], [facility], [place], [address], 4 08:16:39 allerg ist & immuno logist referr al - dyspha rafael with melon and foods high in lactos e 2021 022 stefano Stratton, [address], [place], [address], 2 14:28:31 Procedures None record ed. Surgeries None record ed. Imaging None record ed. Medication Orders pantop razole 20 mg tablet ,delay ed releas e 2023 024 [place] [facility], [address], [place], [place], [id number], 4 16:22:17 cetiri zine 10 mg tablet 2023 024 [place] [facility], [address], [place], [place], [id number], 4 15:19:57 flutic asone propio juan a 50 mcg/ac tuatio n nasal spray, suspen blayne 2023 024 [place] [facility], [address] [facility] [facility], [place], [place], [id number], 4 15:19:56 albute rol sulfat e HFA 90 mcg/ac tuatio n aeroso l inhale r 2023 024 NAJMA [facility], [address] , [place], [place], [id number], 4 16:21:39 pantop razole 20 mg tablet ,delay ed releas e 2021 022 kbarbero [facility] #37251, [address], [place], [id number], 2 16:57:25 Sprint ec (28) 0.25 mg-0.0 35 mg tablet 2018 019 nikita a [facility] #05139, [address], [place], [id number], 2 14:39:29 raniti dine 150 mg tablet 2017 018 nikita a [facility] #53029, [address], [place], [id number], 2 14:38:20 Patient Targets Encounter Date Encounter Id Patient Goals Patient Target Last Modified By Organization Details Last Modified Time pantoprazle kbarbero Not available 03/15 15:19:57 Patient Instructions Encounter Date Encounter Id Patient Instructions Last Modified By Organization Details Last Modified Time 01/23/2016 [id number] patient health questionnaire modified for adolescents* Not available 01/23/2016 12:06:30 tuberculosis ris k assessment* [email or web address] Not available 01/23/2016 12:06:30 9th grade and sports forms completed rquaas Not available 01/23/2016 12:05:36 Discussed diet a nd was given safety info rquaas Not available 01/23/2016 12:05:36 04/07/2018 [id number] As above rquaas Not available 04/07 17:38:20 05/20/2018 [id number] Quitting Tobacco : Care Instructions yarauz Not [...] given. 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 Gluten sensitivity dysphagia with melon and foods high in lactose Referring Physician: Alondra Burdick [facility], Encounter Date: 07/09/2021 Vb Net Developer Referral for Plan tar wart of right foot Referring Physician: Alondra Burdick [facility], Encounter Date: 03/15/2024 Results Created Date Observation Date Name Description Value Unit Range Abnormal Flag Note LastModifiedBy Organization Detail LastModifiedTime 01/23/20 16 01/24/2016 urina lysis compl ete, refle x cultu re specific gravity 1.017 1.005- 1.030 Not Available [facility] ([facility]) [address] [place], [address], 01/25/2016 06:05:51 01/23/20 16 01/24/2016 urina lysis compl ete, refle x cultu re pH 6.0 5.0-7. 5 Not Available [facility] ([facility]) [address] [place], [address], 01/25/2016 06:05:51 01/23/20 16 01/24/2016 urina lysis compl ete, refle x cultu re urine-color YELLOW yellow Not Available [facility] ([facility]) [address] [place], [address], 01/25/2016 06:05:51 01/23/20 16 01/24/2016 urina lysis compl ete, refle x cultu re appearance CLOUDY clear abnormal Not Available [facility] ([facility]) [address] [place], [address], 01/25/2016 06:05:51 01/23/20 16 01/24/2016 urina lysis compl ete, refle x cultu re WBC esterase NEGATI VE negati ve Not Available [facility] ([facility]) [address] [place], [address], 01/25/2016 06:05:51 01/23/20 16 01/24/2016 urina lysis compl ete, refle x cultu re protein NEGATI VE negati ve/tra ce Not Available [facility] ([facility]) [address] [place], [address], 01/25/2016 06:05:51 01/23/20 16 01/24/2016 urina lysis compl ete, refle x cultu re glucose NEGATI VE negati ve Not Available [facility] ([facility]) [address] [place], [address], 01/25/2016 06:05:51 01/23/20 16 01/24/2016 urina lysis compl ete, refle x cultu re ketones NEGATI VE negati ve Not Available [facility] ([facility]) [address] [place], [address], 01/25/2016 06:05:51 01/23/20 16 01/24/2016 urina lysis compl ete, refle x cultu re occult blood NEGATI VE negati ve Not Available [facility] ([facility]) [address] [facility], [place], [address], 01/25/2016 06:05:51 01/23/20 16 01/24/2016 urina lysis compl ete, refle x cultu re bilirubin NEGATI VE negati ve Not Available [facility] ([facility]) [address], [place], [address], 01/25/2016 06:05:51 01/23/20 16 01/24/2016 urina lysis compl ete, refle x cultu re urobilinogen ,semi-qn 0.2 mg/dL 0.2-1. 0 Not Available [facility] ([facility]) [address] [facility], [place], [address], 01/25/2016 06:05:51 01/23/20 16 01/24/2016 urina lysis compl ete, refle x cultu re nitrite, urine NEGATI VE negati ve Not Available [facility] ([facility]) [address] [facility], [place], [address], 01/25/2016 06:05:51 01/23/20 16 01/24/2016 urina lysis compl ete, refle x cultu re microscopic examination COMMEN T MICRO SCOPI C FOLLO WS IF INDIC ATED. Not Available [facility] ([facility]) [address] [facility], [place], [address], 01/25/2016 06:05:51 01/23/20 16 01/24/2016 urina lysis compl ete, refle x cultu re microscopic examination SEE BELOW: MICRO SCOPI C WAS INDIC ATED AND WAS PERFO RMED. Not Available [facility] ([facility]) [address] [facility], [place], [address], 01/25/2016 06:05:51 01/23/20 16 01/24/2016 urina lysis compl ete, refle x cultu re WBC 0-5 /hpf 0 - 5 Not Available [facility] ([facility]) [address] [facility], [place], [address], 01/25/2016 06:05:51 01/23/20 16 01/24/2016 urina lysis compl ete, refle x cultu re RBC 0-2 /hpf 0 - 2 Not Available [facility] ([facility]) [address] [facility], [place], [address], 01/25/2016 06:05:51 01/23/20 16 01/24/2016 urina lysis compl ete, refle x cultu re epithelial cells (non renal) >10 /hpf 0 - 10 abnormal Not Available [facility] ([facility]) [address] [facility], [place], [address], 01/25/2016 06:05:51 01/23/20 16 01/24/2016 urina lysis compl ete, refle x cultu re epithelial cells (renal) LIQUOR COMMISSIONER Not Available [facility] ([facility]) [address], [place], [address], 01/25/2016 06:05:51 01/23/20 16 01/24/2016 urina lysis compl ete, refle x cultu re casts LIQUOR COMMISSIONER Not Available [facility] ([facility]) [address] [facility], [place], [address], 01/25/2016 06:05:51 01/23/20 16 01/24/2016 urina lysis compl ete, refle x cultu re cast type LIQUOR COMMISSIONER Not Available [facility] ([facility]) [address] [facility], [place], [address], 01/25/2016 06:05:51 01/23/20 16 01/24/2016 urina lysis compl ete, refle x cultu re crystals LIQUOR COMMISSIONER Not Available [facility] ([facility]) [address] [place], [address], 01/25/2016 06:05:51 01/23/20 16 01/24/2016 urina lysis compl ete, refle x cultu re crystal type LIQUOR COMMISSIONER Not Available [facility] ([facility]) [address] [place], [address], 01/25/2016 06:05:51 01/23/20 16 01/24/2016 urina lysis compl ete, refle x cultu re mucus threads PRESEN T not estab. Not Available [facility] ([facility]) [address] [place], [address], 01/25/2016 06:05:51 01/23/20 16 01/24/2016 urina lysis compl ete, refle x cultu re bacteria MANY none seen/f ew abnormal Not Available [facility] ([facility]) [address] [facility], [place], [address], 01/25/2016 06:05:51 01/23/20 16 01/24/2016 urina lysis compl ete, refle x cultu re yeast LIQUOR COMMISSIONER Not Available [facility] ([facility]) [address] [place], [address], 01/25/2016 06:05:51 01/23/20 16 01/24/2016 urina lysis compl ete, refle x cultu re trichomonas LIQUOR COMMISSIONER Not Available [facility] ([facility]) [address] [place], [address], 01/25/2016 06:05:51 01/23/20 16 01/24/2016 urina lysis compl ete, refle x cultu re comment LIQUOR COMMISSIONER Not Available [facility] ([facility]) [address] [place], [address], 01/25/2016 06:05:51 01/23/20 16 01/24/2016 urina lysis compl ete, refle x cultu re urinalysis reflex COMMEN T THIS SPECI MEN HAS REFLE XED TO A URINE CULTU RE. Not Available [facility] ([facility]) [address] [facility], [place], [address], 01/25/2016 06:05:51 01/23/20 16 01/25/2016 urina lysis compl ete, refle x cultu re urine culture, routine FINAL REPORT Not Available [facility] ([facility]) [address] [facility], [place], [address], 01/25/2016 06:05:51 01/23/20 16 01/25/2016 urina lysis compl ete, refle x cultu re result 1 NO GROWTH Not Available [facility] ([facility]) [address] [facility], [place], [address], 01/25/2016 06:05:51 05/20/19 19 05/21/2018 HIV (1+O+ 2) Ab, serum HIV 4TH generation Non Reacti ve non reacti ve Not Available [facility] (Lab) [address] [place], [address], 05/21/2018 06:16:20 05/20/1905/21/2018 RPR (rapi d plasm a reagi n), titer , serum RPR Non Reacti ve non reacti ve Not Available [facility] (Lab) [address] [facility], [place], [address], 05/21/2018 06:16:21 05/20/1905/23/2018 bacte rial vagin osis + vagin itis panel , vagin al atopobium vaginae High - 2 score abnormal Not Available [facility] (Lab) [address] [place], [address], 05/23/2018 15:07:21 05/20/1905/23/2018 bacte rial vagin osis + vagin itis panel , vagin al bvab 2 High - 2 score abnormal Not Available [facility] (Lab) [address] [place], [address], 05/23/2018 15:07:21 05/20/19 19 05/23/2018 bacte rial [...] e mary cteri stics deter mined by [facility]. It has not been clear ed or appro debo by the Food and Drug Admin istra tion. The FDA has deter mined that such clear ance or appro gillian is not neces monika. Not Available [facility] (Lab) [address] [place], [address], 05/23/2018 15:07:21 05/20/19 19 05/23/2018 bacte rial vagin osis + vagin itis panel , vagin al monica albicans, FLIP Positi ve negati ve abnormal Not Available [facility] (Lab) [address] [facility], [place], [address], 05/23/2018 15:07:21 05/20/1905/23/2018 bacte rial vagin osis + vagin itis panel , vagin al monica glabrata, FLIP Negati ve negati ve This test was devel oped and its perfo rmanc e mary cteri stics deter mined by [facility]. It has not been clear ed or appro debo by the Food and Drug Admin istra tion. The FDA has deter mined that such clear ance or appro gillian is not neces monika. Not Available [facility] (Lab) [address] [place], [address], 05/23/2018 15:07:21 05/20/19 19 05/23/2018 bacte rial vagin osis + vagin itis panel , vagin al trich vag by FLIP Negati ve negati ve Not Available [facility] (Lab) [address], [place], [address], 05/23/2018 15:07:21 05/20/19 19 05/23/2018 bacte rial vagin osis + vagin itis panel , vagin al chlamydia trachomatis, FLIP Negati ve negati ve Not Available [facility] (Lab) [address], [place], [address], 05/23/2018 15:07:21 05/20/19 19 05/23/2018 bacte rial vagin osis + vagin itis panel , vagin al neisseria gonorrhoeae, FLIP Negati ve negati ve Not Available [facility] (Lab) [address], [place], [address], 05/23/2018 15:07:21 05/20/19 19 05/20/2018 urina lysis [...] 05/20/1905/20/2018 urina lysis , dipst ick Specific Gove 1.030 Not Available In-Off ice Order Internal [...] DO Not Attach Compendium, Do Not Delete/merge, [id number] 05/20/2018 14:31:18 Result Notes Documentation Provider Name and Address Organization Details Recorded Time Urinalysis Complete, Reflex Culture : many bacteria GINNY Cross Attn: Accounting,[address] [facility], [place], [address], [place] [facility] 01/25/2016 19:20:19 Problems Name Problem SNOMED Code Status Onset Date Resolution Date Notes Provider Name and Address Organization Details Recorded Time Gastro-esop hageal reflux disease with esophagitis 844013223 Active 2017 PREMA MENJIVAR Attn: Accountemelina g,[address] [place], [address], [place] [facility] 4 15:17:50 Allergic rhinitis 76595914 Active 2023 PREMA MENJIVAR Attn: Accountin g,[address] [place], [address], [place] [facility] 4 15:18:27 Abdominal pain 06247933 Completed 05/20/2018 Shanae Shankar RN null, [place] [facility] 9 14:15:09 Dysuria 73498586 Completed 05/20/2018 Shanae Shankar RN null, [place] [facility] 9 14:15:03 Problem Notes None recorded. Medical Equipment None Reported. Allergies Allergen ID Allergen Name Allergen Category Reaction Reaction Severity Criticality Documentation Date Start Date Code Code System Note Provider Name and Address Organization Details Recorded Time 060490 melon extract food Not available Not available Not available 07/09/2021 69059 10 RxNorm Not Available Not Available Not Available 966911 banana extract food,medi cation Not available Not available Not available 07/09/2021 17969 9 RxNorm Not Available Not Available Not [...] propionate 50 mcg/actuati on nasal spray,suspe nsion [place] 1 spray every day by intranasa l [...] Address Organization Details Last Updated DateTime 04/07/2018 45377.28 g 98.3 [degF] Winter Walden [place] - [facility] 04/07/2018 17:19:39 Date Recorded Body weight Body height Body mass index (BMI) Body mass index (BMI) Percentile per age and sex Body temperature Systolic blood pressure Diastolic blood pressure Provider Name and Address Organization Details Last Updated DateTime 9 68399.8 3 g 160.02 cm 17.7 kg/m2 8 % 98.2 [degF] 102 mm[Hg] 52 mm[Hg] Shanae Shankar RN [place] [facility] 9 14:13:53 Date Recorded Body height Body mass index (BMI) Percentile per age and sex Body mass index (BMI) Body weight Oxygen saturation Oxygen saturation in Arterial blood by Pulse oximetry Heart rate Respiratory rate Body temperature Systolic blood pressure Diastolic blood pressure Provider Name and Address Organization Details Last Updated DateTime 2 160.02 cm 4 % 17.6 kg/m2 59209.3 4 g 99 % 99 % 84 /min 16 /min 98.1 [degF] 110 mm[Hg] 62 mm[Hg] Kiarra cervantes [place] [facility] 2 14:44:08 Date Recorded Body height Body mass index (BMI) Body weight Oxygen saturation Oxygen saturation in Arterial blood by Pulse oximetry Heart rate Respiratory rate Systolic blood pressure Diastolic blood pressure Provider Name and Address Organization Details Last Updated DateTime 4 160.02 cm 17.2 kg/m2 91792.4 6 g 97 % 97 % 99 /min 16 /min 115 mm[Hg] 80 mm[Hg] Denae Lopez MA [facility] 4 15:00:22 Date Recorded Body height Body weight Body temperature Body mass index (BMI) Systolic blood pressure Diastolic blood pressure Provider Name and Address Organization Details Last Updated DateTime 6 160.02 cm 43676.3 8359 g 97.9 [degF] 19 kg/m2 118 mm[Hg] 58 mm[Hg] William Mon [facility] 6 11:28:45 Social History Question Answer Notes LastModified by Organizat ion Details LastModified Time Tobacco Smoking Status Current Every Day Smoker BERNARD Shankar RN [facility], [facility] 05/20/2018 14:17:46 Are You Or Have [...] Time What is your exercise level? Moderate [email or web address] Information not available 05/20/2018 Mental Status None [...] virus, quadrivalent, PF 6 completed Not Available [facility] 05/14/2019 02:32:30 HPV9 6 completed Not Available [facility] 05/14/2019 02:42:06 DTaP, unspecified formulation 2 completed [...] SNOMED-CT Code Diagnosis ICD10 Code Diagnosis Note [id number] [facility] [address] [place] [address] 01/23/2016 11:02:18 01/23/2016 12:17:37 Adolescent care 974207861 Z00.3 Abdominal pain 32013559 R10.9 [id number] [facility] [address] [place] [address] 04/07/2018 17:16:20 04/08/2018 09:18:58 Gastro-esophageal reflux disease with esophagitis 968001026 K21.0 Take some TUMS chews TID and avoid chocolate and spicy foods [id number] Lee Feldman [facility] [address] [place] [address] 05/20/2018 13:57:23 05/24/2018 10:36:52 Gynecologic examination 01001904 Z01.411 Venereal d isease screening 641353473 Z11.3 Tobacco user 192165352 Z 72.0 Oral contr aceptive prescribed 030143055 Z30.011 Dysmenorrhea 516060084 N 94.6 [id number] PREMA MENJIVAR [facility] [address] [place] [address] 07/09/2021 14:20:18 07/10/2021 10:45:55 Gluten sensitivity 338625912 K90.41 past 2 yrsdifficu lty swallowing with gluten, lactose and melonshas been avoiding foods and eating mostly vegetables send for allergy referral Gastroesop hageal reflux disease 662294863 K21.9 previously on med with improvemen t of reflux sxrefilldi scussed future GI referral if concrete tester attributes symptoms to eosinophil lic esophagiti s Depression screening 171 539442 Z13.31 PHQ 0 [id number] PREMA MENJIVAR [facility] [address] [place] [address] 03/15/2024 14:46:51 03/15/2024 15:24:54 Plantar wart of right foot 3913178013 9653656 B07.0 x6 monthsincr easing in size and cluster to plantar aspect of R footdenies paincompou nd W made it worserefer to podiatry Allergic rhinitis 514223 04 J30.9 refill meds Gastro-eso phageal reflux disease with esophagitis 983132859 K21.00 refill Influenza vaccination declined 836001004 Z28.21 Underweight 760648078 R6 3.6 Depression screening 171 095318 Z13.31 PHQ 0 Health Concerns Section Related Observation LastModified by Organization Detai ls LastModified Time None Recorded Concern Status LastModified by Organization Details LastModified Time None Recorded Advance Directives Directive None Recorded Payers Encounter Date Sequence Insurance Name Policy Number Policy Pool Covered Member ID Pool Member ID Guarantor Name 01/23/2016 1 [place] [facility] Ragini Duckworth [id number] Tashia Duckworth 04/07/2018 1 [facility] (MEDICAID HMO) [id number] Ragini Duckworth [id number] Tashia Duckworth 05/20/2018 1 [facility] (MEDICAID HMO) [id number] Ragini Duckworth [id number] Tashia Duckworth 07/09/2021 1 [facility] (MEDICAID HMO) [id number] Ragini Duckworth [id number] Tashia Duckworth 03/15/2024 1 [facility] (MEDICAID HMO) [id number] Ragini Duckworth [id number] Tashia Duckworth Notes Date Note Type Note Provider Name and Address Organization Details Recorded Time 04/07/2018 text/html Ragini was seen in the [facility] ED 8 days ago for ABD pain; labs and a CT were w/o finding; pain is worse w/ eating; fever before being seen in the ER but none since Nato gonzalez [facility] 04/07/2018 17:38:27 05/20/2018 text/html Annual GYNReport [...] stop vaping. JD CoffeyPDanielle Attn: Accounting,[address] [place], [address], [facility] 05/21/2018 14:36:34 07/09/2021 text/html Pt presents for [...] or headaches. PREMA MENJIVAR Attn: Accounting,[address] [place], [address], [facility] 07/09/2021 17:03:04 03/15/2024 text/html Pt [...] in size. PREMA MENJIVAR Attn: Accounting,[address] [place], [address], [facility] 03/15/2024 16:23:45 OBGyn Episode No OBEpisode recorded.
[2024-08-15 07:09] VITALS: BP 130/80; PULSE 88; RESP 14; TEMP 36.6; O2SAT 100
--- OUTSIDE RECORDS SUMMARY | 2024-08-15 07:20 | XMS_ITS | Data Portability ---
Author Organization [facility] Address [address] [place] [address] Care Team Providers Care Gas Manager Name Role Phone PINKYKITTY PEREA Primary Care [...] B core Ab) igm, serum 2024 025 [facility]), [address], [place], [address], 07/06/2024 13:32:36 HBsAg (hepati tis B surface Ag), serum 2024 025 [facility]), [address], [place], [address], 07/06/2024 13:32:34 hepatit is C virus Ab, serum 2024 025 [facility]), [address], [place], [address], 07/06/2024 13:32:35 HIV 1+2 AB + HIV 1 p24 Ag, qualita tive immunoa ssay, serum 2024 025 [facility]), [address], [place], [address], 07/06/2024 13:32:33 RPR (rapid plasma reagin) , serum 2024 025 [facility]), [address], [place], [address], 07/06/2024 13:32:36 pregnan cy test, urine 2024 025 [facility], [address], [place], [address], 07/05/2024 10:20:14 pregnan cy test, [facility] [place] [address], [place], [address], 08/03/2023 10:35:38 Referral None recorde d. Procedures None recorde d. Surgeries None recorde d. Imaging US, obstetr ic, transva ginal 2024 025 [email or web address] [place], [address], [address], [place], [address], 08/02/2024 14:14:06 US, pelvis [address], [address], [place], [address], 08/04/2023 22:09:07 US, transva ginal 2023 024 [email or web address] [place], [place], [address], 08/04/2023 22:09:07 Medication Orders metroni dazole 0.75 % (37.5 mg/5 gram) vaginal gel 2024 025 NAJMA [id number], [address] [facility], [place], [place], [id number], 07/05/2024 10:14:57 Patient TargetsNo targets recorded. 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 Not Available [facility] (Lab) [address] [facility], [place], [address], 11/14/2022 13:59:02 11/13/19 23 11/12/2022 TRICH OMONA S VAGIN DESI (RRNA ) trichomonas vaginalis ribosomal RNA (rrna) Negati ve negati ve Not Available [facility] (Lab) [address] [facility], [place], [address], 11/14/2022 13:59:02 11/13/19 23 11/12/2022 CT/GC (TAYLOR) , THINP REP VIAL chlamydia trachomatis, PCR Negati ve negati ve Not Available [facility] (Lab) [address] [facility], [place], [address], 11/14/2022 13:59:03 11/13/19 23 11/12/2022 CT/GC (TAYLOR) , THINP REP VIAL neisseria gonorrhoeae, PCR Negati ve negati ve Not Available [facility] (Lab) [address] [facility], [place], [address], 11/14/2022 13:59:03 08/03/19 24 08/03/2023 VAGIN ITIS/ VAGIN OSIS, DNA PROBE monica sp. detection, direct probe Negati ve negati ve Not Available [facility] (Lab) [address] [facility], [place], [address], 08/04/2023 17:29:50 08/03/19 24 08/03/2023 VAGIN ITIS/ VAGIN OSIS, DNA PROBE gardnerella vag. detection, direct probe Positi ve negati ve abnormal Not Available [facility] (Lab) [address] [facility], [place], [address], 08/04/2023 17:29:50 08/03/19 24 08/03/2023 VAGIN ITIS/ VAGIN OSIS, DNA PROBE trichomonas vag. detection, direct probe Negati ve negati ve Not Available [facility] (Lab) [address] [facility], [place], [address], 08/04/2023 17:29:50 08/03/19 24 08/03/2023 CT/GC AND TRICH OMONA S VAGIN DESI (RRNA ), SWAB chlamydia trachomatis, PCR Negati ve negati ve Not Available [facility] (Lab) [address] [facility], [place], [address], 08/04/2023 17:29:50 08/03/19 24 08/03/2023 CT/GC AND TRICH OMONA S VAGIN DESI (RRNA ), SWAB neisseria gonorrhoeae, PCR Negati ve negati ve Not Available [facility] (Lab) [address] [facility], [place], [address], 08/04/2023 17:29:50 08/03/19 24 08/03/2023 CT/GC AND TRICH OMONA S VAGIN DSEI (RRNA ), SWAB trichomonas vaginalis ribosomal RNA (rrna) Negati ve negati ve Not Available [facility] (Lab) [address] [facility], [place], [address], 08/04/2023 17:29:50 08/03/19 24 08/03/2023 pregn jcarlos test, urine HCG negati ve Not Available [place] [address], [place], [address], 08/03/2023 10:30:58 07/06/19 25 07/05/2024 HIV 1/2 ANTIG EN/AN TIBOD Y, REFLE X CONFI RMATI ON HIV antigen/anti body Nonrea ctive nonrea ctive HIV-1 antig en and HIV-1 /HIV- 2 antib odies were not detec joss. No labor atory evide nce of HIV infec tion. Not Available [facility] (Lab) [address], [place], [address], 07/06/2024 13:32:33 07/06/19 25 07/05/2024 HEPAT ITIS B SURFA CE ANTIG EN hepatitis B surface antigen Non-re active non-re active This assay was perfo rmed using [employer] n reage nts and test kits. Value s obtai sonal with other assay metho ds or kits canno t be used inter mar[facility] eably . Not Available [facility] (Lab) [address] [place], [address], 07/06/2024 13:32:34 07/06/19 25 07/05/2024 HEPAT ITIS C ANTIB JUANIS SCREE N, REFLE X TO CONFI RMATI ON hepatitis C antibody Non-re active non-re active Antib odies to HCV Not Detec joss, does not exclu de the possi bilit y of expos ure to HCV. Not Available [facility] (Lab) [address], [place], [address], 07/06/2024 13:32:35 07/06/19 25 07/05/2024 RPR SCREE N, REFLE X TITER /CONF IRMAT ION RPR qualitative Nonrea ctive nonrea ctive Not Available [facility] (Lab) [address] [facility], [place], [address], 07/06/2024 13:32:35 07/06/19 25 07/05/2024 HEPAT ITIS B CORE, IGM hepatitis B core IgM antibody Non-re active non-re active IgM anti- HBc not detec joss. Does not exclu de the possi bilit y of expos ure to or infec tion with HBV. Test Perfo rmed by: Emigdio michel rn [address] [address] Not Available [facility] (Lab) [address] [facility], [place], [address], 07/06/2024 13:32:36 07/06/19 25 07/05/2024 WOMEN 'S HEALT H SWAB PLUS, FLIP bacterial vaginosis (bv), tma Positi ve negati ve abnormal Not Available [facility] (Lab) [address] [facility], [place], [address], 07/06/2024 15:19:17 07/06/19 25 07/05/2024 WOMEN 'S HEALT H SWAB PLUS, FLIP monica species, tma Positi ve negati ve abnormal Not Available [facility] (Lab) [address] [place], [address], 07/06/2024 15:19:17 07/06/19 25 07/05/2024 WOMEN 'S HEALT H SWAB PLUS, FLIP monica glabrata, tma Negati ve negati ve Not Available [facility] (Lab) [address] [place], [address], 07/06/2024 15:19:17 07/06/19 25 07/05/2024 WOMEN 'S HEALT H SWAB PLUS, FLIP trichomonas vaginalis, tma Negati ve negati ve Not Available [facility] (Lab) [address] [place], [address], 07/06/2024 15:19:17 07/06/19 25 07/05/2024 WOMEN 'S HEALT H SWAB PLUS, FLIP chlamydia trachomatis, PCR Negati ve negati ve Not Available [facility] (Lab) [address] [place], [address], 07/06/2024 15:19:17 07/06/19 25 07/05/2024 WOMEN 'S [...] deter mine BV posit jailyn or negat jailyn statu s. The Elvie da speci es [...] ded in this panel . Not Available [facility] (Lab) [address] [facility], [place], [address], 07/06/2024 15:19:17 07/06/19 25 07/05/2024 pregn jcarlos test, urine HCG negati ve Not Available [place] [address], [place], [address], 07/05/2024 10:20:07 07/26/19 25 07/25/2024 BHCG, QUANT ITATI VE B-HCG 1712.0 mIU/m L 0.0-4. 9 high This assay was perfo rmed using [employer] reage nts and test kits. Value s obtai sonal with other assay metho ds or kits canno t be used inter [facility] eay . Refer ence Range s: [...] Weeks 8,099 - 58,17 6 Not Available [facility] (Lab) [address] [facility], [place], [address], 07/26/2024 03:52:54 07/28/19 25 07/27/2024 BHCG, QUANT ITATI VE B-HCG 2924.0 mIU/m L 0.0-4. 9 high This assay was perfo rmed using [employer] reage nts and test kits. Value s obtai sonal with other assay metho ds or kits canno t be used inter [facility] eay . Refer ence Range s: [...] Weeks 8,099 - 58,17 6 Not Available [facility] (Lab) [address], [place], [address], 07/28/2024 06:03:18 08/04/19 24 08/04/2023 US, pelvi s No observ ation record ed. [facility] [address], [place], [address], 08/04/2023 17:42:48 08/04/19 24 08/04/2023 US, trans vagin al No observ ation record ed. [facility] [address], [place], [address], 08/04/2023 17:42:59 08/04/19 24 08/04/2023 US, pelvi s No observ ation record ed. [facility] [address], [place], [address], 08/05/2023 10:46:29 08/03/19 25 08/02/2024 US, obste tric, trans vagin al No observ ation record ed. [email or web address] [place] [address], [place], [address], 08/02/2024 14:12:42 08/03/19 25 08/02/2024 US, obste tric, follo w-up No observ ation record ed. [email or web address] [address], [place], [address], 08/02/2024 23:20:24 Result Notes None recorded. Problems Name Problem SNOMED Code Status Onset Date Resolution Date Notes Provider Name and Address Organization Details Recorded Time Pregnanc y 89921665 Completed 202108/15/2022 Mora Aparicio [facility] 3 15:20:54 Asthma in pregnanc y 34315076931 103 Completed Mora Alessandra [facility] 3 15:20:50 Placenta l abnormal ity 930358788 Completed slow blood flow at the surface, MFM and NST's for now. [facility] 3 15:20:50 Small for gestatio nal age fetus 290232866 Completed 2022 6%. 2x/wk NST's, Wkly BBP & Dopplers [facility] 3 15:20:50 Problem Notes None recorded. Procedures Surgical History Date Name Laterality Status Provider Name and Address Organization Details Recorded Time 3 Date of Last Pap Smear completed Jocy Kidd [facility] 08/03/2023 09:32:06 9 biopsy of esophagus completed Marcelle Shields [facility] 11/04/2021 17:23:53 Imaging Results Imaging Date Name Status LastModified by Organization Details LastModified Time 08/04/2023 US, pelvis completed gorge Duong [address], [place], [address], 08/04/2023 17:42:48 08/04/2023 US, transvaginal completed gorge iniguez [address], [place], [address], 08/04/2023 17:42:59 08/04/2023 US, pelvis completed NAJ[facility] [address], [place], [address], 08/05/2023 10:46:29 08/02/2024 US, obstetric, transvaginal completed [email or web address] [place] [address], [place], [address], 08/02/2024 14:12:42 08/02/2024 US, obstetric, follow-up completed [address], [place], [address], 08/02/2024 23:20:24 Procedure Notes None recorded. Medical Equipment None Reported. Allergies Allergen ID Allergen Name Allergen Category Reaction Reaction Severity Criticality Documentation Date Start Date Code Code System Note Provider Name and Address Organization Details Recorded Time 27214 lactose food,medi cation Not available Not available Not available 10/30/2021 6211 RxNorm Marcelle Shields [facility] 2 14:36:13 13529 melon extract food Not available Not available Not available 11/26/2021 57099 10 RxNorm Iveth Fletcher [facility] 2 11:40:09 56839 POLLEN EXTRACTS environme nt,medica tion Not available Not available Not available 11/26/2021 95121 6 RxNorm Iveth Fletcher [facility] 2 11:40:17 Medications Name Sig Start [...] Updated DateTime 11/12/2022 159.39 cm 17.5 kg/m2 70349.05 g Cleopatra Stone [facility] 11/12/2022 15:41:15 Date Recorded Systolic blood pressure Diastolic blood pressure Provider Name and Address Organization Details Last Updated DateTime 11/12/2022 122 mm[Hg] 74 mm[Hg] Ana Jiménez, [facility]- [address], [place], [address], [facility] 11/12/2022 16:05:46 Date Recorded Body height Body mass index (BMI) Body weight Systolic blood pressure Diastolic blood pressure Provider Name and Address Organization Details Last Updated DateTime 08/03/2023 159.39 cm 17.7 kg/m2 30336.64 g 132 mm[Hg] 82 mm[Hg] Jocy Zengman [facility] 4 10:10:53 Date Recorded Body height Body mass index (BMI) Body weight Systolic blood pressure Diastolic blood pressure Provider Name and Address Organization Details Last Updated DateTime 07/05/2024 159.39 cm 18.2 kg/m2 68957.42 g 121 mm[Hg] 76 mm[Hg] Fidelina Benavides [facility] 5 09:47:11 Social History Question Answer Notes LastModified by Organizat ion Details LastModified Time Tobacco Smoking Status Former Smoker Talia Gar carlos, [facility] 05/15/2022 10:50:33 Do You Have An Advance Directive? No [email or web address] Information not available 10/30/2021 What Is Your Level Of Alcohol Consumption? None [email or web address] Information not available 10/30/2021 If You Are , What Was Your Level Of Alcohol Consumption Prior To ? Occasional [email or web address] Information not available 05/15/2022 How Many Years Have You Consumed Alcohol? 0 [email or web address] Information not available 05/08/2022 Are You Blind Or Do You Have Difficulty Seeing? No [email or web address] Information not available 10/30/2021 What Is Your Level Of Caffeine Consumption? Moderate [email or web address] Information not available 10/30/2021 How Much Tobacco Do You Chew? None [email or web address] Information not available 10/30/2021 In The 14 Days Before Symptom Onset, Have You Had Close Contact With A Laboratory-confir med COVID-19 While That Case Was Ill? No [email or web address] Information not available 10/30/2021 In The 14 Days Before Symptom Onset, Have You Had Close Contact With A Person Who Is Under Investigation For COVID-19 While That Person Was Ill? No [email or web address] Information not available 10/30/2021 Have You Been To An Area Known To Be High Risk For COVID-19? No [email or web address] Information not available 10/30/2021 Are You Deaf Or Do You Have Serious Difficulty Hearing? No [email or web address] Information not available 10/30/2021 What Type Of Diet Are You Following? REGULAR [email or web address] Information not available 10/30/2021 What Is The Highest Grade Or Level Of School You Have Completed Or The Highest Degree You Have Received? 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 Yes [email or web address] Information not available 10/30/2021 Do You Use Protection During Sex? No Information not available 10/30/2021 Do You Use Your Seat Belt Or Car Seat Routinely? Yes Information not available 10/30/2021 Do You Have Smoke And Carbon Monoxide Detectors In Your Home? Yes [email or web address] Information not available 10/30/2021 At What Age Did You Start Smoking Tobacco? 13 Information not available 11/26/2021 How Much Tobacco Do You Smoke? 1 PPW Information not available 11/26/2021 Do You Feel Stressed (tense, Restless, Nervous, Or Anxious, Or Unable To Sleep At Night)? [id number] [email or web address] Information not available 10/30/2021 Do You Use Any Illicit Or Recreational Drugs? Yes [email or web address] Information not available 10/30/2021 Do You Use Sunscreen Routinely? No [email or web address] Information not available 10/30/2021 Has Tobacco Cessation Counseling Been Provided? No Information not available 05/15/2022 How Many Years Have You Smoked Tobacco? 8 Information not available 10/30/2021 Have You Used IV Drugs? No [email or web address] Information not available 10/30/2021 Do You Or Have You Ever Used Any Other Forms Of Tobacco Or Nicotine? No [email or web address] Information not available 05/15/2022 Sex: Unknown Functional Status Question Answer Note LastModified by Organizat ion Details LastModified Time Do you have difficulty walking or climbing stairs? No [email or web address] Information not available 05/15/2022 Are you able to walk? YESWOREST [email or web address] Information not available 10/30/2021 Are you able to care for yourself? Yes Information not available 05/15/2022 Do you have difficulty dressing or bathing? No [email or web address] Information not available 05/15/2022 What is your exercise level? Occasional [email or web address] Information not available 10/30/2021 Mental Status None recorded. Family History Relationship Description Onset Age of this Age Resolved Age Notes LastModified by Organization Details LastModified Time Unspecified Relation Family history unknown [email or web address] Not available 10/30 14:35:57 Medical History Condition Response Other N Blood Transfusion N Dermatologic Disorders N Gestational Diabetes N Anxiety Disorder N Autoimmune disease N Arthritis N Polyps N Infertility N Acid Reflux (GERD) Y Cancer N Varicosities N Stroke N Neurologic/Epilepsy N Fibromyalgia N Headaches N Kidney Disease N Heart Problems N Kidney or Bladder Problems N Eating Disorder N Art (IVF or FET) N Hepatitis/Liver Disease N No Past Medical History N Urinary Tract Infection N Asthma Y Trauma/Violence N Thrombophilias N Allergies (Food, seasonal, environmental ) Y Breast Cancer N Drug/Latex Allergies/Reactions Y Lung Disease N Defects or Inherited Disease N Breast Problem N Hematologic disorders N Anesthesia Complications N History of STI N Deep Vein Thrombosis N Polycystic ovary syndrome N History of abnormal pap N Endometriosis N High Cholesterol N Thyroid Problems N GI Problems Y Anemia N Psychiatric Illness N Ovarian Cancer N Diabetes N Pulmonary (TB, Asthma) N Eczema Y Abuse/Domestic Violence N Depression/ depression N Heart Disease N Pre-Eclampsia N Hypertension N Osteoporosis N Gynecological History Statement/Question Response Date of [...] SNOMED-CT Code Diagnosis ICD10 Code Diagnosis Note [id number] [facility] [address] [address] 10/30/2021 13:54:33 10/30/2021 15:09:[id number] [facility] [address] [address] 10/30/2021 13:55:22 10/30/2021 15:12:03 Amenorrhea 92603247 N91.2 [id number] [facility] [address],[place] [address] 11/26/2021 10:29:55 11/26/2021 11:55:23 screening 468819691 Z36.82 [id number] Pepito Hampton MD [place] [address] [address] 11/26/2021 10:33:35 11/26/2021 11:54:57 Routine care 688729923 Z34.01 [id number] Pepito Hampton MD [place] [address],[place] [address] 12/23/2021 10:39:12 12/23/2021 12:05:37 Routine care 924231464 Z34.01 [id number] [facility] [address],[place] [address] 01/23/2022 10:49:42 01/23/2022 12:44:22 screening for malformation 397935916 Z36.3 [id number] Pepito Hampton MD [place] [address],[place] [address] 01/23/2022 10:50:16 01/23/2022 12:45:03 Routine care 467291390 Z34.01 [id number] Ning Rodriguez [facility] [address],[place] [address] 02/20/2022 10:58:39 02/20/2022 13:53:20 Low lying placenta 262706687 O44.42 Z36.2 Z3A.24 [id number] Pepito Hampton MD [place] [address],[place] [address] 02/20/2022 10:59:24 02/20/2022 13:01:45 Routine care 598517569 Z34.01 [id number] [facility] [address],[place] [address] 03/17/2022 15:32:32 03/17/2022 16:23:18 condition affecting obstetrical care of mother 891486426 Z3A.28 [id number] Lakeisha Carrero MD [place] [address],[place] [address] 03/17/2022 15:32:59 03/17/2022 17:06:47 Routine care 825869259 Z34.[id number] [facility] [address],[place] [address] 04/04/2022 09:43:30 04/04/2022 10:32:12 Routine care 702549059 Z34.93 [id number] [facility] [address],[place] [address] 04/24/2022 12:22:21 04/24/2022 14:58:59 Small for gestational age fetus 591054864 O36.5930 Z3A.33 [id number] Pepito Hampton MD [place] [address],[place] [address] 05/02/2022 14:09:42 05/02/2022 15:18:32 Routine care 514631677 Z34.01 [id number] [facility] [address],[place] [address] 05/02/2022 15:07:03 05/02/2022 16:14:58 Placental abnormality 995837069 O43.93 [id number] [facility] [address],[place] [address] 05/08/2022 11:23:24 05/08/2022 12:00:25 Routine care 931085728 Z34.93 [id number] [facility] [address],[place] [address] 05/08/2022 11:23:46 05/08/2022 12:33:56 Small for gestational age fetus 056150777 O36.5930 Z3A.33 [id number] [facility] [address],[place] [address] 05/12/2022 10:56:26 05/12/2022 14:36:59 Placental abnormality 995266968 O43.93 [id number] [facility] [address],[place] [address] 05/15/2022 10:50:27 05/15/2022 12:13:26 Placental abnormality 333359398 O43.93 [id number] Ning Rodriguez [place] [address],[place] [address] 05/15/2022 10:50:48 05/15/2022 12:13:53 Small for gestational age fetus 344014065 O36.5930 O43.90 Z3A.36 [id number] [facility] [address],[place] [address] 05/15/2022 10:51:03 05/15/2022 13:04:36 Routine care 347793832 Z34.93 Placental condition affecting management of mother 845298298 O43.93 [id number] Pepito Hampton MD [place] [address],[place] [address] 06/19/2022 16:17:01 06/19/2022 17:32:24 care 353691748 Z39.2 This patient is a 22-year-ol d 1 para 1001 at 4 weeks post from a vaginal . She is not breastfeed ing. She is not bleeding. She is doing well. Her baby is doing well. She has not had sex and she declines any control. We talked about follow-up for well-woman exam. She patient is doing very well and very content. [id number] [facility] [address] [address] 11/12/2022 15:17:29 11/12/2022 16:13:07 Gynecologic examination 85415841 Z01.419 Take Calcium with Vitamin D 1200mg [...] na Dexa Screen na Routine Labs PCP [id number] [address] [place] [address],[place] [address] 08/03/2023 10:07:37 08/03/2023 10:53:09 Pain in pelvis 89049470 R10.2 gc/ct/tric h testing sentvagini tis panel sentUA/cx sentpelvic u/s orderedRTC for u/s and f/u to discuss results Time spent in visit is a total of 30 mins with at least 50% of visit consisting of counseling and review of plan of care. Dyspareunia 28014741 N94 .10 [id number] Carol Harkins [place] [address],[place] [address] 08/04/2023 15:27:44 08/04/2023 16:22:36 Pain in pelvis 74370625 R10.[id number] [place] [address],[place] [address] 07/05/2024 09:39:51 07/05/2024 10:24:01 Vaginitis 75372782 N76.0 vaginitis panel sentgc/ct/ trich testing sent [...] plan of care. Venereal d isease screening 929615319 Z11.3 Unprotecte d sexual intercourse 6219637 Z72.51 Sexually t ransmitted infectious disease 0045036 A64 Reproducti ve care management 376515345 Z31.9 [id number] [facility] [address],[place] [address] 08/02/2024 12:11:05 08/02/2024 13:09:03 screening 304910194 Z36.87 Z3A.01 Health Concerns Section Related Observation LastModified by Organization Detai ls LastModified Time None Recorded Concern Status LastModified by Organization Details LastModified Time None Recorded Advance Directives Directive N: Payers Encounter Date Sequence Insurance Name Policy Number Policy Pool Covered Member ID Pool Member ID Guarantor Name 11/12/2022 1 [facility] (MEDICAID HMO) [id number] 08/03/2023 1 [facility] (MEDICAID HMO) [id number] 08/04/2023 1 [facility] (MEDICAID HMO) [id number] 07/05/2024 1 [facility] (MEDICAID HMO) [id number] 0003 [id number] 08/02/2024 1 [facility] (MEDICAID HMO) [id number] 0003 [id number] Notes Date Note Type Note Provider Name [...] Followed with yearly pap smears Ana Jiménez, [facility]- [address], [place], [address], [facility] 11/12/2022 16:07:49 4 text/html 23yo [id number] today for pain with IC/decreased libidopain with IC for the past few monthsbilateral cramping sensation, pain with deep penetrationtrouble having an orgasmcondoms for BCCurrently from partner, her partner may have other partnersnoticed d/c and odor a few weeks ago that has since resolvedneg n/v/fneg flu-like symptomsneg d/c, odors, itchingsome constipation at timespap UTD, 10/2022 - normal [address], [place], [address], [facility] 08/03/2023 10:49:37 5 text/html 24yopresents with c/o vaginal discharge, odors, irritationsymptoms present x 1 monthlast treated for BV 2 months ago via telehealth apptSA with steady male partner, TTC, taking daily PNVwould like STI testing today uses a scented soap neg pelvic painneg n/v/fneg flu-like symptoms [address], [place], [address], [facility] 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 Rpt U/S 05/23/22 Problem Name Start Date End Date Resolution Snomed Code Not e Small for gestational age fetus 05/05/2022 [id number] 6%. 2x/wk NST's , Wkly BBP & Dopplers Asthma in [id number] Placental abnormality [id number] 5 slow blood flow at the surface, [...] Weight in lbs Pre/Post Dialysis Refused Weight 105.222798240866 BP Diastolic BP Location Tested BP Systolic [...] Weight in lbs Pre/Post Dialysis Refused Weight 108.949881567127 BP Diastolic BP Location Tested BP Systolic [...] Weight in lbs Pre/Post Dialysis Refused Weight 117.324474012636 BP Diastolic BP Location Tested BP Systolic [...] Weight in lbs Pre/Post Dialysis Refused Weight 119.624980024419 BP Diastolic BP Location Tested BP Systolic [...] Weight in lbs Pre/Post Dialysis Refused Weight 122.057817613562 BP Diastolic BP Location Tested BP Systolic [...] Weight in lbs Pre/Post Dialysis Refused Weight 124.939368017330 BP Diastolic BP Location Tested BP Systolic [...] Weight in lbs Pre/Post Dialysis Refused Weight 129.481872990396 BP Diastolic BP Location Tested BP Systolic [...] Weight in lbs Pre/Post Dialysis Refused Weight 129.789544930471 BP Diastolic BP Location Tested BP Systolic [...] Weight in lbs Pre/Post Dialysis Refused Weight 128.435907940981 BP Diastolic BP Location Tested BP Systolic BP Type 84 128 Fetus Heart Rate Present A 140 Fetus Movement A Yes Comments Doing well. Vaginal symptoms resolved. Pt did have irritability/contractions on the monitor today. Possible variables but not tracing great. Ultrasound did show an increase in the fluid collection. BPP8/8 and normal dopplers. Call to [facility] by ob nurse. Awaiting call back. Pt sent to [facility] for monitoring.Spoke with [facility] and regardless of the fluid collection, if any questionable fhr pattern, she would recommend delivery. Flowsheet Date 06/19/2022 Núñez Score Blood Edema Fundus Height Fundus Units Glucose Ketones Leukocytes Nitrite Labor Signs Protein Cervic Dilation Cervic Effacement Cervic Station Type Weight in lbs Pre/Post Dialysis Refused Weight 114.368413017510 BP Diastolic BP Location Tested BP Systolic [...] ated Date of Delivery false Thalassemia (Salvadorean, Greenlandic, Mediterranean, Or Background): MCV < 80 false Neural Tube Defect (Meningomyelocele, Spina Bifi da, Or Anencephaly) false Congenital Heart Defect false Down Syndrome false Sreekanth-Sachs (eg, Moravian, Cajun, Macedonian-Winchester) f alse Erendira Disease false Sickle Cell Disease Or Trait () false Hemophilia Or Other Blood Disorders false Muscular Dystrophy false Cystic Fibrosis false Carolina's Chorea false Intellectual Disability/Autism false If Yes, [...]
--- NOTE | 2024-08-15 07:28 | ED_ITS ---
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 PAtien was seen in ER 2 days ago for vaginal bleeding. She reports her test did not find any significant findings. She states she has continued to have vaginal bleeding although it is not getting worse. She reports mild bleeding only when she has to urinate. She also reports mild pelvic cramping. Her bleeding is less than if she was having her regular period. Her OBGYN is Dr. Hampton, and she was due to follow up this morning when the office opened. Related Data Home Medications ?Medication ?Instructions ?Recorded ?Confirmed ?Last Taken ?Type albuterol sulfate 90 mcg/actuation 2 puff inhalation Q4H PRN 05/02/22 05/15/22 Unknown History aerosol inhaler Shortness Of Breath vit no.95-ferrous 1 tablet PO DAILY 05/02/22 05/15/22 05/15/22 History fumarate 28 mg-folic acid 800 mcg tablet () Allergies Allergy/AdvReac Type Severity Reaction Status Date / Time pollen extracts Allergy Itching Verified 08/15/24 07:03 Melons Allergy Swelling Uncoded 08/15/24 07:03 of Lip/Tongue/Throat Review of Systems 2 Constitutional: Constitutional: Denies weakness Cardiovascular: Cardiovascular: Denies chest pain and Denies rapid heart rate Gastrointestinal: Gastrointestinal: Reports abdominal pain Genitourinary: Genitourinary: Reports abnormal vaginal bleeding [facility] Past Medical History Medical History Esophagitis on biopsy Surgical History Surgical History No significant past surgical history Family History Family History (Updated 05/12/22 @ 12:40 by Bentley Webb RN) Father COPD (chronic obstructive pulmonary disease) Mother Hypertension Grandparent COPD (chronic obstructive pulmonary disease) Social History Social History Years smoked: 5 Smoking status: Current every day smoker Tobacco type: e-cigarettes/vaping Second hand tobacco smoke exposure: Yes Alcohol intake: never Substance use: current Substance use type: marijuana Last use: last month--04/17 Lack of Transportation: No Lack of Food: Never True Current Housing: I Have Housing Concerned About Future Housing: No Difficulty Paying Gas/Electric Bills: No Difficulty Paying for Meds: No Currently Unemployed: No Education: High School Diploma/GED Difficulty w/ Childcare or Family Care: No Living arrangements: with family Occupation/Education: unemployed Gender identity (if verbalized by the patient): Female Spiritual care concerns: No Exam 2 Const: General: no acute distress and alert Nutritional Appearance: well nourished Orientation/consciousness: patient oriented x3 HENMT: Head: normal to inspection Eyes: EOM: EOMs intact bilaterally Chest: Chest palpation & inspection: normal inspection of the chest Resp: Effort & Inspection: normal respiratory effort Auscultation: clear to auscultation bilaterally Cardio: Rate: regular rate Rhythm: regular rhythm Heart sounds: no murmurs GI: GI Palp: Yes Soft to palpation, No Tenderness to palpation present (GI), No Guarding due to palpation present (GI) and No Rigid due to palpation A uscultation: normal bowel sounds Skin: General skin exam: normal color Rashes: no rashes Neuro: General: patient oriented x3 Extrem: General: normal to inspection Psych: Mental Status: mental status grossly normal Affect: normal affect Attitude: cooperative Course Reevaluation(s) Reevaluation #1: I discussed with patient that Dr. Hampton request for her to be seen in clinic. She understands. Date: 08/15/24 Time: 09:22 Consultations Consultation #1: I spoke with Dr. Hampton about US results and decreasing HCG. He request that patient come to his clinic after discharge from ER. Date: 08/15/24 Time: 09:21 Vital Signs Vital signs: Vital Signs Temperature 98 F 08/15/24 07:09 Pulse Rate 88 08/15/24 07:09 Respiratory Rate 14 08/15/24 07:09 Blood Pressure 130/80 08/15/24 07:09 Pulse Oximetry 100 08/15/24 07:09 Oxygen Delivery Room Air 08/15/24 07:09 Temperature 97.6 F 08/15/24 09:37 Pulse Rate 66 08/15/24 09:36 Respiratory Rate 18 08/15/24 09:36 Blood Pressure 114/77 08/15/24 09:36 Pulse Oximetry 100 08/15/24 09:36 Oxygen Delivery Room Air 08/15/24 07:09 MDM - OB/Uterine Contractions Medical Records Attestation: I reviewed the patient's medical records. Lab Data Attestation: I reviewed the patient's lab results. 08/15/24 07:27 Labs: Lab Results 08/15/24 Range/Units 07:27 WBC 8.5 (4.5-10.0) K/mm3 RBC 4.10 L (4.2-5.4) M/mm3 Hgb 10.5 L (12.0-15.0) g/dL Hct 33.6 L (37.0-47.0) % MCV 82.0 (80-100) fl MCH 25.6 L (26-34) pg MCHC 31.3 L (32-36) g/dl RDW 17.6 H (11.5-14.5) % Plt Count 248 (150-375) k/mm3 MPV 10.7 H (7.4-10.4) fl Immature Gran % (Auto) 0.2 (0-0.5) % Neut % (Auto) 65.4 (45.5-73.1) % Lymph % (Auto) 20.3 (18.3-44.2) % Will % (Auto) 8.7 H (2.6-8.5) % Eos % (Auto) 4.6 H (0-4.4) % Baso % (Auto) 0.8 (0.2-1.2) % Lymph # (Auto) 1.73 (0.9-3.2) K/mm3 Will # (Auto) 0.7 H (0.1-0.6) K/mm3 Eos # (Auto) 0.4 H (0-0.3) K/mm3 Baso # (Auto) 0.1 (0.0-0.1) K/mm3 Abs Immat Gran (auto) 0.02 (0.00-0.031) K/mm3 Absolute Neuts (auto) 5.6 (1.3-6.7) K/mm3 Absolute Nucleated RBC 0.000 (0.0-0.012) K/mm3 Nucleated RBC % 0.0 (0.0-0.2) % Beta HCG, Quant 7708.70 mIU/ML Imaging Data Radiologist's impression: ITS Impressions Ultrasound 08/15/24 08:10 Impression: Possible early intrauterine gestational sac at the lower uterine segment with average sac diameter 8 mm. No visible pole or yolk sac. Short-term follow- up ultrasound in 5-7 days is recommended to reassess. Discharge Plan Discharge Clinical Impression: Vaginal bleeding in patient after first trimester Patient Disposition: Home Condition: Stable Instructions: Antibiotic Form, Threatened Miscarriage (ED) Additional Instructions: Dr. Hampton requested that you go to his clinic on discharged from here. He states to tell medical front desk coordinator that he asked to see you fromER. Patient Language: [place] Prescriptions: No Action albuterol sulfate 90 mcg/actuation Hfa Aerosol Inhaler 2 puff INHALATION Q4H PRN (Reason: Shortness Of Breath) PNV cmb#95-ferrous fumarate-FA [] 28 mg iron- 800 mcg Tablet 1 tablet PO DAILY ibuprofen 600 mg Tablet 600 mg PO Q6H PRN (Reason: Cramping) Qty: 30 0RF Follow-up/Referrals: Katia,PREMA Cantu [Primary Care Provider] - Pepito Hampton MD [Physician] -
[2024-08-15 07:38] LABS: Basophils Absolute Auto 0.1 K/mm3 (0.0-0.1); Basophils Percent Auto 0.8 % (0.2-1.2); Eosinophils Absolute Auto 0.4 K/mm3 (0-0.3); Eosinophils Percent Auto 4.6 % (0-4.4); Hematocrit 33.6 % (37.0-47.0); Hemoglobin 10.5 g/dL (12.0-15.0); Immature Granulocyte Absolute 0.02 K/mm3 (0.00-0.031); Immature Granulocyte Percent A 0.2 % (0-0.5); Lymphocytes Absolute Auto 1.73 K/mm3 (0.9-3.2); Lymphocytes Percent Auto 20.3 % (18.3-44.2); Mean Corpuscular HGB Conc 31.3 g/dl (32-36); Mean Corpuscular Hemoglobin 25.6 pg (26-34); Mean Platelet Volume 10.7 fl (7.4-10.4); Monocytes Absolute Auto 0.7 K/mm3 (0.1-0.6); Monocytes Percent Auto 8.7 % (2.6-8.5); Neutrophils Absolute Auto 5.6 K/mm3 (1.3-6.7); Neutrophils Percent Auto 65.4 % (45.5-73.1); Platelet Count Result 248 k/mm3 (150-375); Red Cell Distribution Width 17.6 % (11.5-14.5); White Blood Count 8.5 K/mm3 (4.5-10.0)
[2024-08-15 08:30] VITALS: BP 129/76; PULSE 76; RESP 14; O2SAT 100
[2024-08-15 09:36] VITALS: BP 114/77; PULSE 66; RESP 18; O2SAT 100
[2024-08-15 09:37] VITALS: TEMP 36.4
[2024-08-15 10:16] VITALS: BP 112/64; PULSE 82; RESP 14; O2SAT 98
== END 2024-08-15 10:17 | disposition home or self-care (01) ==
PROVIDERS: Emergency Provider General Practice; PCP Physician Assistant
DX: O20.9 Hemorrhage in early pregnancy, unspecified (principal); O99.331 Smoking (tobacco) complicating pregnancy, first trimester; F17.290 Nicotine dependence, other tobacco product, uncomplicated; Z3A.01 Less than 8 weeks gestation of pregnancy
CPT/HCPCS: 36415; 76801; 84702; 85025; 99284